=== PATIENT | female | born 1940 | race Caucasian/White ===

== ENCOUNTER → 2016-09-18 | Outpatient (CLI) | payer OTHER ==
[~2016-09-18] MED LIST: ATEN50TA8 PO; CYM/30 PO; DICL-201 PO; INSDGI SC; LYR25 PO; NVLGI SC; TRAM-10 PO
--- NOTE | 2016-09-18 16:38 | DIAGNOSTIC IMAGING REPORT ---
RIGHT ELBOW MIN 3 VIEWS ROUTINE CLINICAL HISTORY: Diffuse pain. Trauma. COMPARISON: None. DISCUSSION: No acute fractures are visualized. There are arthritic changes present with early process spurring. There is irregularity of the medial and lateral epicondyles. This is felt to be a chronic stress-related basis. IMPRESSION: Chronic changes. No acute fractures or dislocations. Electronically signed by: Jaime Chacko M.D. 09/18/2016 4:37 PM Dictated Date/Time: 09/18/2016 4:36 PM
--- NOTE | 2016-09-18 16:40 | DIAGNOSTIC IMAGING REPORT ---
RIGHT SHOULDER MIN 2 VIEWS ROUTINE CLINICAL HISTORY: Right shoulder pain status post trauma COMPARISON: None. DISCUSSION: No acute fractures or dislocations are visualized. There are osteoarthritic changes present. There is narrowing of the humeral acromial distance consistent with chronic rotator cuff tear. IMPRESSION: 1. No acute fractures or dislocations 2. Degenerative changes with radiographic evidence of a chronic rotator cuff tear Electronically signed by: Jaime Chacko M.D. 09/18/2016 4:38 PM Dictated Date/Time: 09/18/2016 4:38 PM
== END | disposition home or self-care (01) ==
LOC: C.RAD1850 16:18
PROVIDERS: ATTEND Nurse Practitioner Family
DX: M79.601 Pain in right arm (principal); M75.101 Unspecified rotator cuff tear or rupture of right shoulder, not specified as traumatic

== ENCOUNTER → 2016-11-02 | Outpatient (CLI) | payer OTHER ==
[2016-11-02 11:45] LABS: ESTIMATED AVERAGE GLUCOSE 177 mg/dl; HA1C FLAG Normal (Normal)
[2016-11-02 12:24] LABS: BLOOD UREA NITROGEN 22 mg/dl (7-18); BUN/CREATININE RATIO 28.2 (10-20); CALCIUM 8.7 mg/dl (8.5-10.1); CARBON DIOXIDE 27 mmol/L (21-32); CHLORIDE 106 mmol/L (98-107); CREATININE 0.78 mg/dl (0.60-1.20); GLUCOSE 141 mg/dl (70-99); POTASSIUM 4.1 mmol/L (3.5-5.1); SODIUM 141 mmol/L (136-145)
== END | disposition home or self-care (01) ==
LOC: C.LAB 10:08
PROVIDERS: ATTEND Nurse Practitioner Family
DX: E11.9 Type 2 diabetes mellitus without complications (principal)

== ENCOUNTER → 2017-02-22 | Outpatient (CLI) | payer OTHER ==
[2017-02-22 10:00] LABS: BASO % 0.4 %; BASO ABS # 0.03 K/uL (0-0.2); COMPLETE YES; EOS % 2.2 %; HEMATOCRIT 37.9 % (37-47); IG% 0.6 %; LYMPH % 37.7 %; LYMPH ABS # 2.58 K/uL (1.2-3.4); MEAN CELL VOLUME 90.2 fL (80-100); MEAN CORPUSCULAR HEMOGLOBIN 29.5 pg (25-34); MEAN CORPUSCULAR HGB CONC 32.7 g/dl (32-36); MEAN PLATELET VOLUME 10.6 fL (7.4-10.4); MONO % 10.5 %; NEUT % 48.6 %; PLATELET COUNT 287 K/uL (130-400); WHITE BLOOD COUNT 6.84 K/uL (4.8-10.8)
[2017-02-22 10:27] LABS: ALT/SGPT 33 U/L (12-78); BLOOD UREA NITROGEN 26 mg/dl (7-18); BUN/CREATININE RATIO 23.5 (10-20); CALCIUM 9.5 mg/dl (8.5-10.1); CARBON DIOXIDE 26 mmol/L (21-32); CHLORIDE 106 mmol/L (98-107); CHOLESTEROL 235 mg/dl (0-200); GLUCOSE 157 mg/dl (70-99); POTASSIUM 4.3 mmol/L (3.5-5.1); SODIUM 139 mmol/L (136-145)
[2017-02-22 10:30] LABS: ALKALINE PHOSPHATASE 55 U/L (45-117); AST/SGOT 22 U/L (15-37); CHOLESTEROL/HDL RATIO 5.5; HDL CHOLESTEROL 43 mg/dl; LDL CHOLESTEROL CALCULATED 150 mg/dl; TRIGLYCERIDES 211 mg/dl (0-150); VERY LOW DENSITY LIPOPROT CALC 42 mg/dl
[2017-02-22 10:48] LABS: ESTIMATED AVERAGE GLUCOSE 186 mg/dl; HA1C FLAG Normal (Normal)
== END | disposition home or self-care (01) ==
LOC: C.LAB 09:19
PROVIDERS: ATTEND Nurse Practitioner Family
DX: E11.42 Type 2 diabetes mellitus with diabetic polyneuropathy (principal); E11.21 Type 2 diabetes mellitus with diabetic nephropathy; E55.9 Vitamin D deficiency, unspecified; F41.9 Anxiety disorder, unspecified; E78.00 Pure hypercholesterolemia, unspecified; I10 Essential (primary) hypertension; M25.511 Pain in right shoulder

== ENCOUNTER → 2017-06-04 | Outpatient (CLI) | payer OTHER ==
[2017-06-04 10:16] LABS: BLOOD UREA NITROGEN 21 mg/dl (7-18); BUN/CREATININE RATIO 25.5 (10-20); CALCIUM 9.1 mg/dl (8.5-10.1); CARBON DIOXIDE 26 mmol/L (21-32); CHLORIDE 104 mmol/L (98-107); CREATININE 0.84 mg/dl (0.60-1.20); GLUCOSE 144 mg/dl (70-99); POTASSIUM 4.2 mmol/L (3.5-5.1); SODIUM 137 mmol/L (136-145)
[2017-06-04 11:25] LABS: ESTIMATED AVERAGE GLUCOSE 157 mg/dl; HA1C FLAG Normal (Normal)
== END | disposition home or self-care (01) ==
LOC: C.LAB 09:26
PROVIDERS: ATTEND Nurse Practitioner Family
DX: F41.9 Anxiety disorder, unspecified (principal); F32.9 Major depressive disorder, single episode, unspecified; E11.65 Type 2 diabetes mellitus with hyperglycemia

== ENCOUNTER → 2017-12-04 | Outpatient (CLI) | payer OTHER ==
[2017-12-04 12:12] LABS: BASO % 0.9 %; BASO ABS # 0.06 K/uL (0-0.2); EOS % 2.5 %; EOS ABS # 0.17 K/uL (0-0.5); HEMATOCRIT 38.1 % (37-47); HEMOGLOBIN 12.6 g/dL (12.0-16.0); IG# 0.03 K/uL (0.00-0.02); LYMPH % 34.3 %; LYMPH ABS # 2.35 K/uL (1.2-3.4); MEAN CELL VOLUME 92.3 fL (80-100); MEAN CORPUSCULAR HEMOGLOBIN 30.5 pg (25-34); MEAN CORPUSCULAR HGB CONC 33.1 g/dl (32-36); MEAN PLATELET VOLUME 10.5 fL (7.4-10.4); MONO % 11.5 %; MONO ABS # 0.79 K/uL (0.11-0.59); NEUT % 50.4 %; NEUT ABS # 3.45 K/uL (1.4-6.5); PLATELET COUNT 311 K/uL (130-400); RED CELL DISTRIBUTION WIDTH CV 13.2 % (11.5-14.5); RED CELL DISTRIBUTION WIDTH SD 44.3 fL (36.4-46.3); WHITE BLOOD COUNT 6.85 K/uL (4.8-10.8)
[2017-12-04 12:40] LABS: HEMOGLOBIN A1C 8.1 % (4.5-5.6)
[2017-12-04 13:10] LABS: BLOOD UREA NITROGEN 19 mg/dl (7-18); CALCIUM 9.3 mg/dl (8.5-10.1); CARBON DIOXIDE 27 mmol/L (21-32); CHOLESTEROL 235 mg/dl (0-200); CREATININE 0.86 mg/dl (0.60-1.20); GLUCOSE 191 mg/dl (70-99); SODIUM 138 mmol/L (136-145)
[2017-12-04 13:14] LABS: LDL CHOLESTEROL CALCULATED 154 mg/dl
== END | disposition home or self-care (01) ==
LOC: C.LAB 10:17
PROVIDERS: ATTEND Nurse Practitioner Family
DX: E11.65 Type 2 diabetes mellitus with hyperglycemia (principal); I10 Essential (primary) hypertension; E78.00 Pure hypercholesterolemia, unspecified

== ENCOUNTER 2021-07-28 17:46 | Inpatient (IN) ==
--- NOTE | 2021-07-28 18:10 | Emergency Department Note ---
Impression & Plan Leukocytosis, Acute UTI, Fatigue, Acute electrocardiogram changes, Chest heaviness, Hyperglycemia ED Provider Note NAME: MAGNUS SANCHEZ AGE: 81 SEX: F : 1940 ARRIVES VIA: Walk-In INFORMANT: Patient, ED PROVIDER(S): Earl Arzate MD Chief Complaint: Weakness, fatigue, chest heaviness HPI: Patient presents with the above symptoms stating that her symptoms began on Sunday and thought that she had a UTI was treated with Macrobid and was subsequently switched to ciprofloxacin today. The patient had a similar episode back in October where the patient had positive cardiac enzymes and bacteremia secondary to Pseudomonas infection likely from UTI. Patient denies any current fevers or chills. The patient did complain of some chest heaviness but has no cough. Patient is vaccinated for COVID-19, influenza as well as pneumococcal. Patient denies any lower extremity swelling. Patient denies any nausea or diaphoresis with her chest heaviness. Patient states it feels dissimilar from when she had elevated cardiac enzymes back in October. No history of DVT or PE. No recent travel or known sick contacts. Patient [place] any falls or trauma. Patient does have chronic pain which she thinks also may be contributory to her chest heaviness. Patient has not taken anything at home other than her antibiotics. Patient states that her symptoms have been fairly constant since Sunday. Patient did have the cardiac enzymes worked up by Dr. Multani in the past with a stress test that they report did not require intervention. ROS: See HPI for pertinent positives and negatives. A total of 10 systems were reviewed and otherwise negative. Past medical history: See below Surgical history: See below Social history: See below Physical Exam: GENERAL: NAD, wearing a mask, non-toxic. EYE EXAM: Normal conjunctiva. PERRL, no anisocoria and EOM's grossly intact w/o pain. NECK: Supple, no nuchal rigidity, no adenopathy, non-tender. No signs of meningismus. LUNGS: Clear to auscultation. Normal chest wall mechanics. HEART: NSR, no MRG. ABDOMEN: Abdomen soft, non-tender, normo-active bowel sounds, no masses, no rebound or guarding. BACK: No CVA TTP. SKIN: No rashes and no bruising. UPPER EXTREMITIES: Upper extremities are grossly normal. LOWER EXTREMITIES: Grossly normal, no edema. NEURO EXAM: A&O x3, cranial nerves II-XII grossly intact, normal speech, moves all 4 extremities on command w/o issue. Differential diagnoses: Infection, dehydration, metabolic abnormality, hypo/hyperglycemia, electrolyte disturbance, anemia, hypoxia, cardiac sources, intracerebral event, toxicologic, neurologic, as well as other pathologies. Course: Patient was seen and evaluated the bedside. Full history physical exam was performed. EKG interpreted by me Sinus with first-degree AV block, rate 92, prolonged TN, normal QRS, normal axis, slight depression in the anterior and lateral leads. Lateral depressions appear to be old but anteriorly may appear worse compared to prior completed on October 20, 2020. Imaging Studies: See Below Cardiac monitoring: An order was placed for continuous cardiac monitoring. The monitor shows a rate of 82 with sinus rhythm. MDM: Patient was seen due to concern for fatigue and chest heaviness. The patient's EKG does show some slight changes anteriorly. Troponin had been ordered. Patient does have a white count of 20. I did order cefepime empirically given the patient's recently confirmed Pseudomonas UTI. The patient did receive cephalosporins in the past even though the patient has a penicillin allergy. The patient most recently received them during her October inpatient stay. Patient has normal kidney function. Patient does have an elevated blood sugar at 280. Troponin is not detectable. Urinalysis does show blood and RBCs but no obvious signs of infection. I did speak with the on-call hospitalist and the patient was admitted by Dr. German. Covid negative. Chest x-ray shows cardiomegaly. Patient has no abdominal pain or flank pain. I discussed with the patient that if she develops worsening chest discomfort to notify nursing so we can repeat an EKG. Patient understood. Past Med/Surg History Medical History Anxiety disorder Cardiovascular arteriosclerosis Depression Diabetes mellitus with diabetic nephropathy Diabetes type 2, uncontrolled Diabetic peripheral neuropathy Fibromyalgia Gastro-esophageal reflux Hypercholesterolemia Irritable bowel syndrome Obesity Vitamin D deficiency Surgical History History of back surgery S/P cataract surgery S/P knee surgery Family History Father Prostate cancer Mother Hypertension Depression Diabetes Unknown Cancer Denies family history of Ovarian cancer Myocardial infarction Breast cancer Colorectal cancer Social History Smoking Status: Former smoker Tobacco Type: Cigarettes Age Started Using Tobacco: 19; Age Quit Using Tobacco: 62; Cigarettes Per Day: 1-2 a day if that; Second Hand Exposure: Yes; Hx Alcohol Use: No Hx Substance Use: No Preferred Language: Slovenian Communication Ability: Effective Visual Impairment: No Limitations Hearing Ability: Normal Material Requisitioner Required: No Beliefs That Will Affect Care: None marital status: Current Living Situation: Spouse current occupational status: retired Feels Safe at Home: Yes Childhood Exposure to Second-Hand Smoke: Yes Diet Comment: keto Dental Care, Regularly: Yes Physical Activity Frequency: Does not Exercise Seatbelt Use: sometimes Sunscreen Use: Yes Assistive Devices: Cane and Denture - Lower Allergies Allergies Allergy/AdvReac Type Severity Reaction Status Date / Time amoxicillin Allergy Severe Shortness Verified 07/28/21 19:31 of breath Penicillins Allergy Severe Shortness Verified 07/28/21 19:31 of breath shellfish derived Allergy Severe syncope Verified 07/28/21 19:31 sulfamethoxazole Allergy Severe Anaphylaxis Verified 07/28/21 19:31 [From Bactrim] trimethoprim [From Bactrim] Allergy Severe Anaphylaxis Verified 07/28/21 19:31 Viunzdk-HBQ-IeC Reductase Allergy Intermediate Body Pain Verified 07/28/21 19:31 Inhibitor [Iplpjlr-Han-Axu Reductase Inhibitor] codeine Allergy Unknown SOB,CHANGE Verified 07/28/21 19:31 MENTAL STATUS - TAKES VICODIN AT HOME morphine Allergy Unknown FAMILY Verified 07/28/21 19:31 REACTION /FATHER AND DAUGHTER metformin [From Glucophage] AdvReac Intermediate Diarrhea Verified 07/28/21 19:31 Home Meds Home Medications Medication Instructions Recorded Confirmed omega-3 fatty acids 1,000 mg 1,000 mg PO DAILY 11/22/20 07/28/21 capsule (Fish Oil Concentrate) cholecalciferol (vitamin D3) 125 125 mcg PO DAILY 07/28/21 07/28/21 mcg (5,000 unit) tablet (Vitamin D3) ciprofloxacin HCl 250 mg tablet 250 mg PO Q12 07/28/21 07/28/21 insulin aspart U-100 100 unit/mL 1 sliding scale dose SUBCUT UD 07/28/21 07/28/21 (3 mL) subcutaneous pen (Novolog Flexpen U-100 Insulin aspart) insulin glargine 100 unit/mL 22 unit SQ BID 07/28/21 07/28/21 subcutaneous solution (Lantus U-100 Insulin) omeprazole 20 mg capsule,delayed 20 mg PO DAILYBB 07/28/21 07/28/21 release tramadol 50 mg tablet 50 mg PO Q12 PRN 07/28/21 07/28/21 Previous Rx's Medication Instructions Recorded clonazepam 0.5 mg tablet 0.5 mg PO BID PRN #60 tab 07/22/20 blood sugar diagnostic (dINKTouch #400 ea 09/15/20 Verio test strips) blood-glucose meter (dINKTouch #1 ea 09/15/20 Verio Meter) lancets 33 gauge (OneTouch Delica #400 ea 09/20/20 Lancets) desvenlafaxine succinate 50 mg 50 mg PO QPM #90 tab 01/25/21 tablet,extended release 24 hr insulin syringe-needle U-100 0.3 #400 ea 02/10/21 mL 30 gauge x 1/2" (UltiCare) metoprolol succinate 50 mg 50 mg PO HS #90 tab 02/21/21 tablet,extended release 24 hr Results & Data (ED) Vital Signs Vital Signs - 24 hr 07/28/21 17:50 Temperature 37.2 C Temperature Source Temporal Artery Scan Pulse Rate 89 Respiratory Rate 18 Blood Pressure 193/79 H Blood Pressure Mean 117 Pulse Oximetry 96 Oxygen Delivery Method Room Air Sepsis Recent Fever Within 48 Hours No Sepsis New/Unexplained Change in Mental Status No Sepsis Action Taken by Nursing No Action Required Home Medications Current Medication List: was personally reviewed by me Laboratory Data Attestation: I reviewed the patient's lab results. Result diagrams: 07/28/21 18:15 07/28/21 18:15 Lab Results 07/28/21 07/28/21 07/28/21 Range/Units 18:15 18:15 18:15 WBC 20.72 H (4.8-10.8) K/uL RBC 4.39 (4.2-5.4) M/uL Hgb 13.4 (12.0-16.0) g/dL Hct 40.6 (37-47) % MCV 92.5 (80-100) fL MCH 30.5 (25-34) pg MCHC 33.0 (32-36) g/dL RDW Std Deviation 46.5 H (36.4-46.3) fL RDW Coeff of Adair 13.7 (11.5-14.5) % Plt Count 261 (130-400) K/uL MPV 10.3 (7.4-10.4) fL Immature Gran % (Auto) 0.2 % Neut % (Auto) 82.7 % Lymph % (Auto) 9.6 % Yell % (Auto) 6.2 % Eos % (Auto) 1.2 % Baso % (Auto) 0.1 % Neut # (Auto) 17.14 H (1.4-6.5) K/uL Lymph # (Auto) 1.98 (1.2-3.4) K/uL Yell # (Auto) 1.29 H (0.11-0.59) K/uL Eos # (Auto) 0.24 (0-0.5) K/uL Baso # (Auto) 0.03 (0-0.2) K/uL Immature Gran # (Auto) 0.04 H (0.00-0.02) K/uL APTT (21.0-31.0) Seconds PTT Ratio Sodium 139 (136-145) mmol/L Potassium 4.2 (3.5-5.1) mmol/L Chloride 107 (98-107) mmol/L Carbon Dioxide 26 (21-32) mmol/L Anion Gap 6.0 (3-11) BUN 15 (7-18) mg/dl Creatinine 0.94 (0.6-1.2) mg/dl Est Cr Clr Drug Dosing Not Reportable Est GFR ( Amer) 66.9 ml/min Est GFR (Non-Af Amer) 57.7 ml/min BUN/Creatinine Ratio 15.7 (10-20) Glucose 280 H (70-99) mg/dl Calcium 9.2 (8.5-10.1) mg/dl Magnesium 1.8 Cancelled (1.8-2.4) mg/dl Total Bilirubin 0.6 (0.2-1) mg/dl AST 23 (15-37) U/L ALT 29 (12-78) Alkaline Phosphatase 65 (45-117) U/L Troponin I < 0.015 (0-0.045) ng/ml Total Protein 7.4 (6.4-8.2) gm/dl Albumin 3.4 (3.4-5.0) gm/dl Globulin 4.0 (2.5-4.0) gm/dl Albumin/Globulin Ratio 0.8 L (0.9-2) TSH 1.400 Cancelled (0.300-4.500) uIu/ml Urine Color Urine Appearance (Clear) Urine pH (4.5-7.5) Ur Specific [place] (1.000-1.030) Urine Protein (Negative) Urine Glucose (UA) (Negative) Urine Ketones (Negative) Urine Blood (Negative) Urine Nitrite (Negative) Urine Bilirubin (Negative) Urine Urobilinogen (Negative) Ur Leukocyte Esterase (Negative) Urine WBC (Auto) (0-5) /hpf Urine RBC (Auto) (0-4) /hpf U Hyaline Cast (Auto) (0-5) /lpf U Epithel Cells (Auto) (0-5) /lpf Urine Bacteria (Auto) (Negative) SARS-CoV-2, RNA, NAAT (NEGATIVE) 07/28/21 07/28/21 07/28/21 Range/Units 19:10 19:10 20:06 WBC (4.8-10.8) K/uL RBC (4.2-5.4) M/uL Hgb (12.0-16.0) g/dL Hct (37-47) % MCV (80-100) fL MCH (25-34) pg MCHC (32-36) g/dL RDW Std Deviation (36.4-46.3) fL RDW Coeff of Adair (11.5-14.5) % Plt Count (130-400) K/uL MPV (7.4-10.4) fL Immature Gran % (Auto) % Neut % (Auto) % Lymph % (Auto) % Yell % (Auto) % Eos % (Auto) % Baso % (Auto) % Neut # (Auto) (1.4-6.5) K/uL Lymph # (Auto) (1.2-3.4) K/uL Yell # (Auto) (0.11-0.59) K/uL Eos # (Auto) (0-0.5) K/uL Baso # (Auto) (0-0.2) K/uL Immature Gran # (Auto) (0.00-0.02) K/uL APTT (21.0-31.0) Seconds PTT Ratio Sodium (136-145) mmol/L Potassium (3.5-5.1) mmol/L Chloride (98-107) mmol/L Carbon Dioxide (21-32) mmol/L Anion Gap (3-11) BUN (7-18) mg/dl Creatinine (0.6-1.2) mg/dl Est Cr Clr Drug Dosing Est GFR ( Amer) ml/min Est GFR (Non-Af Amer) ml/min BUN/Creatinine Ratio (10-20) Glucose (70-99) mg/dl Calcium (8.5-10.1) mg/dl Magnesium (1.8-2.4) mg/dl Total Bilirubin (0.2-1) mg/dl AST (15-37) U/L ALT (12-78) Alkaline Phosphatase (45-117) U/L Troponin I < 0.015 (0-0.045) ng/ml Total Protein (6.4-8.2) gm/dl Albumin (3.4-5.0) gm/dl Globulin (2.5-4.0) gm/dl Albumin/Globulin Ratio (0.9-2) TSH (0.300-4.500) uIu/ml Urine Color Yellow Urine Appearance Clear (Clear) Urine pH 7.0 (4.5-7.5) Ur Specific [place] 1.013 (1.000-1.030) Urine Protein Negative (Negative) Urine Glucose (UA) 2+ H (Negative) Urine Ketones Negative (Negative) Urine Blood 2+ H (Negative) Urine Nitrite Negative (Negative) Urine Bilirubin Negative (Negative) Urine Urobilinogen Negative (Negative) Ur Leukocyte Esterase Negative (Negative) Urine WBC (Auto) 1-5 (0-5) /hpf Urine RBC (Auto) 5-10 H (0-4) /hpf U Hyaline Cast (Auto) 0 (0-5) /lpf U Epithel Cells (Auto) 0-5 (0-5) /lpf Urine Bacteria (Auto) Negative (Negative) SARS-CoV-2, RNA, NAAT NEGATIVE (NEGATIVE) 07/28/21 Range/Units 20:06 WBC (4.8-10.8) K/uL RBC (4.2-5.4) M/uL Hgb (12.0-16.0) g/dL Hct (37-47) % MCV (80-100) fL MCH (25-34) pg MCHC (32-36) g/dL RDW Std Deviation (36.4-46.3) fL RDW Coeff of Adair (11.5-14.5) % Plt Count (130-400) K/uL MPV (7.4-10.4) fL Immature Gran % (Auto) % Neut % (Auto) % Lymph % (Auto) % Yell % (Auto) % Eos % (Auto) % Baso % (Auto) % Neut # (Auto) (1.4-6.5) K/uL Lymph # (Auto) (1.2-3.4) K/uL Yell # (Auto) (0.11-0.59) K/uL Eos # (Auto) (0-0.5) K/uL Baso # (Auto) (0-0.2) K/uL Immature Gran # (Auto) (0.00-0.02) K/uL APTT 27.7 (21.0-31.0) Seconds PTT Ratio 1.1 Sodium (136-145) mmol/L Potassium (3.5-5.1) mmol/L Chloride (98-107) mmol/L Carbon Dioxide (21-32) mmol/L Anion Gap (3-11) BUN (7-18) mg/dl Creatinine (0.6-1.2) mg/dl Est Cr Clr Drug Dosing Est GFR ( Amer) ml/min Est GFR (Non-Af Amer) ml/min BUN/Creatinine Ratio (10-20) Glucose (70-99) mg/dl Calcium (8.5-10.1) mg/dl Magnesium (1.8-2.4) mg/dl Total Bilirubin (0.2-1) mg/dl AST (15-37) U/L ALT (12-78) Alkaline Phosphatase (45-117) U/L Troponin I (0-0.045) ng/ml Total Protein (6.4-8.2) gm/dl Albumin (3.4-5.0) gm/dl Globulin (2.5-4.0) gm/dl Albumin/Globulin Ratio (0.9-2) TSH (0.300-4.500) uIu/ml Urine Color Urine Appearance (Clear) Urine pH (4.5-7.5) Ur Specific [place] (1.000-1.030) Urine Protein (Negative) Urine Glucose (UA) (Negative) Urine Ketones (Negative) Urine Blood (Negative) Urine Nitrite (Negative) Urine Bilirubin (Negative) Urine Urobilinogen (Negative) Ur Leukocyte Esterase (Negative) Urine WBC (Auto) (0-5) /hpf Urine RBC (Auto) (0-4) /hpf U Hyaline Cast (Auto) (0-5) /lpf U Epithel Cells (Auto) (0-5) /lpf Urine Bacteria (Auto) (Negative) SARS-CoV-2, RNA, NAAT (NEGATIVE) Administered Medications Discontinued Medications Acetaminophen (Acetaminophen 500 Mg Tab) 1,000 mg PO NOW STA Stop: 07/28/21 18:22 Last Admin: 07/28/21 18:53 Dose: 1,000 mg Documented by: [id number] Aspirin (Aspirin 81 Mg Ectab) 81 mg PO ONE STA Stop: 07/28/21 21:18 Last Admin: 07/28/21 21:38 Dose: 81 mg Documented by: [id number] Sodium Chloride (Nss) 500 mls @ 999 mls/hr IV .Q31M TIFFANY Stop: 07/28/21 19:00 Last Infusion: 07/28/21 21:44 Dose: 0 mls/hr Documented by: [id number] Admin: 07/28/21 19:52 Dose: 999 mls/hr Documented by: [id number] Cefepime HCl (Maxipime) 2,000 mg in 20 mls @ 5 mls/min IV NOW STA; Protocol Stop: 07/28/21 18:50 Last Admin: 07/28/21 20:02 Dose: 5 mls/min Documented by: [id number] Insulin Glargine (Insulin Glargine Solostar 100 Units/Ml 3 Ml Pen) 15 units SC NOW STA Stop: 07/28/21 20:17 Last Admin: 07/28/21 21:41 Dose: 15 units Documented by: [id number] Cosigned by: [id number] Metoprolol Succinate (Metoprolol Succ 50mg Ext Rel Tab) 50 mg PO ONE ONE Stop: 07/28/21 20:31 Last Admin: 07/28/21 21:38 Dose: 50 mg Documented by: [id number] Ondansetron HCl (Ondansetron Inj 2 Mg/Ml 2 Ml Vial) 4 mg IV NOW STA Stop: 07/28/21 18:22 Last Admin: 07/28/21 18:53 Dose: 4 mg Documented by: [id number] Tramadol HCl (Tramadol Hcl 50 Mg Tablet) 50 mg PO NOW STA Stop: 07/28/21 18:22 Last Admin: 07/28/21 18:52 Dose: 50 mg Documented by: [id number] Imaging Data Radiologist's Impression: Chest X-Ray 07/28/21 18:22 XR chest 1V portable HISTORY: 81 years-old Female weakness acute weakness. COMPARISON: Chest radiograph 10/20/2020 TECHNIQUE: Portable AP view of the chest FINDINGS: The cardiac silhouette is upper limits of normal in size. Unchanged coarsening of the interstitium. No pneumothorax, large pleural effusion or overt pulmonary edema. Degenerative changes of the shoulders and spine. IMPRESSION: Cardiomegaly with unchanged interstitial coarsening. ACT 112: Negative or not required by law. The above report was generated using voice recognition software. It may contain grammatical, syntax or spelling errors. Electronically signed by: Mitchell Talley M.D. 07/28/2021 6:59 PM Discharge Plan Visit Data Chief Complaint: Illness Stated Complaint: UTI symptoms getting worse ED Provider: Earl Arzate Discharge Problem: Leukocytosis, Acute UTI, Fatigue, Acute electrocardiogram changes, Chest heaviness, Hyperglycemia Discharge Instructions Interventions: ED Discharge Assessment Last Done: 07/28/21 21:31
[2021-07-28] MEDS ORDERED: ONDANSETRON INJ 2 MG/ML 2 ML VIAL IV STA (18:21)
[2021-07-28] MEDS ORDERED: ACETAMINOPHEN 500 MG TAB PO STA (18:21)
[2021-07-28] MEDS ORDERED: traMADol HCL 50 MG TABLET PO STA (18:21)
[2021-07-28 18:23] LABS: Basophils # (auto) 0.03 K/uL (0-0.2); Basophils % (auto) 0.1 %; Eosinophils # (auto) 0.24 K/uL (0-0.5); Eosinophils % (auto) 1.2 %; Hematocrit (blood only) 40.6 % (37-47); Hemoglobin 13.4 g/dL (12.0-16.0); Immature Granulocytes # (auto) 0.04 K/uL (0.00-0.02); Immature Granulocytes % (auto) 0.2 %; Lymphocytes # (auto) 1.98 K/uL (1.2-3.4); Lymphocytes % (auto) 9.6 %; Mean Corpuscular Hemoglobin 30.5 pg (25-34); Mean Corpuscular Volume 92.5 fL (80-100); Mean Platelet Volume 10.3 fL (7.4-10.4); Monocytes # (auto) 1.29 K/uL (0.11-0.59); Monocytes % (auto) 6.2 %; Neutrophils # (auto) 17.14 K/uL (1.4-6.5); Neutrophils % (auto) 82.7 %; Platelet Count 261 K/uL (130-400); RDW Coefficient of Variation 13.7 % (11.5-14.5); RDW Standard Deviation 46.5 fL (36.4-46.3); Red Blood Count 4.39 M/uL (4.2-5.4); White Blood Count 20.72 K/uL (4.8-10.8)
[2021-07-28] MEDS ORDERED: SODIUM CHLORIDE 0.9% 500 ML IV SCH (18:30)
[2021-07-28 18:43] LABS: Alanine Aminotransferase 29 (12-78); Albumin Level 3.4 gm/dl (3.4-5.0); Aspartate Aminotransferase 23 U/L (15-37); BUN Creatinine Ratio 15.7 (10-20); Blood Urea Nitrogen 15 mg/dl (7-18); Calcium 9.2 mg/dl (8.5-10.1); Carbon Dioxide 26 mmol/L (21-32); Chloride 107 mmol/L (98-107); Est GFR (African American) 66.9 ml/min; Est GFR (Non-African American) 57.7 ml/min; Glucose 280 mg/dl (70-99); Potassium 4.2 mmol/L (3.5-5.1); Sodium 139 mmol/L (136-145)
[2021-07-28 18:46] LABS: Albumin Globulin Ratio 0.8 (0.9-2); Alkaline Phosphatase 65 U/L (45-117); Bilirubin,Total 0.6 mg/dl (0.2-1); Total Protein 7.4 gm/dl (6.4-8.2)
[2021-07-28] MEDS ORDERED: CEFEPIME 2,000 MG/20 ML VIAL IV STA (18:47)
[2021-07-28 18:59] LABS: Troponin I < 0.015 ng/ml (0-0.045)
--- NOTE | 2021-07-28 19:00 | XRay Report ---
XR chest 1V portable HISTORY: 81 years-old Female weakness acute weakness. COMPARISON: Chest radiograph 10/20/2020 TECHNIQUE: Portable AP view of the chest FINDINGS: The cardiac silhouette is upper limits of normal in size. Unchanged coarsening of the interstitium. N o pneumothorax, large pleural effusion or overt pulmonary edema. Degenerative changes of the shoulder s and spine. IMPRESSION: Cardiomegaly with unchanged interstitial coarsening. ACT 112: Negative or not required by law. The above report was generated using voice recognition software. It may contain grammatical, syntax o r spelling errors. Electronically signed by: Mitchell Talley M.D. 07/28/2021 6:59 PM
[2021-07-28 19:29] LABS: Magnesium 1.8 mg/dl (1.8-2.4)
[2021-07-28 19:38] LABS: Appearance Urine Clear (Clear); Bacteria Urine Automated Negative (Negative); Bilirubin Urine Negative (Negative); Blood Urine 2+ (Negative); Cast Urine Automated 0 /lpf (0-5); Color Urine Yellow; Epithelial Cell Urine Auto 0-5 /lpf (0-5); Glucose Urine UA 2+ (Negative); Ketones Urine Negative (Negative); Leukocyte Esterase Urine Negative (Negative); Nitrite Urine Negative (Negative); Protein Urine Negative (Negative); Specific Gravity Urine 1.013 (1.000-1.030); Urobilinogen Urine Negative (Negative)
--- NOTE | 2021-07-28 20:02 | History & Physical Report ---
Date of Service July 28, 2021 Assessment & Plan (1) Chest pain: Plan: Somewhat atypical Possibly from elevated BP upon arrival at the ER Rule out ACS, history CAD as per records Complicated UTI, partially treated Enterococcus on initial outpatient urine CS hx recurrent UTIs Patient predisposed by pelvic prolapse as per outpatient Urology notes. No overt sepsis for now. hypertension, elevated upon arrival at the ER hyperlipidemia, on statin Rx DM2 insulin requiring, reasonable control as of recent hemoglobin A1c of 7.16 July 2021 past tobacco abuse PCU given chest pain complaints, history CAD Follow troponin Facilitate nighttime BP meds, add lisinopril to her regimen if still uncontrolled Cardiology consult Re: Chest pain as per patient/family request (Patient known to [facility].) Daptomycin for now for Enterococcus UTI on outpatient urine CS, follow final report PT OT eval Basal insulin, ISS BG goal 1 10-1 40, carb count coverage DVT prophylaxis. Lovenox subcu Full code Patient daughter requesting updates from providers. Ms. Britt Ryder, contact #[phone]. Text document was generated using [employer] voice recognition software. It may contain grammatical or spelling errors. Kindly contact undersigned for clarification of any documentation item in question. History of Present Illness Chief Complaint: Weakness, fatigue, UTI, chest heaviness Primary Care Provider: Anand Mena, DO History obtained from patient, family, and records. Medical history significant for CAD as per records, hypertension, hyperlipidemia, DM2 insulin requiring, fibromyalgia, recurrent UTIs /pelvic floor prolapse, past tobacco abuse. Last confinement October 2020 for chest pain, elevated troponin. No inducible ischemia on outpatient dobutamine stress echo. Patient not feeling well the last few days. Increased urinary frequency, cloudy urine with some blood, weakness, fatigue, transient headache symptoms which patient gets when she has a urine infection as per patient. No fever. Some chills at home. Fair appetite. Patient initially prescribed Macrobid by PCP with abnormal outpatient UA. Ciprofloxacin later added by PCP due to history of Pseudomonas UTIs. Today, patient noted transient chest heaviness at home which patient attributes to fibromyalgia aches. No S OB, no diaphoresis. Patient given cefepime upon arrival at the ER. 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 Allergies Allergy/AdvReac Type Severity Reaction Status Date / Time amoxicillin Allergy Severe Shortness Verified 07/28/21 19:31 of breath Penicillins Allergy Severe Shortness Verified 07/28/21 19:31 of breath shellfish derived Allergy Severe syncope Verified 07/28/21 19:31 sulfamethoxazole Allergy Severe Anaphylaxis Verified 07/28/21 19:31 [From Bactrim] trimethoprim [From Bactrim] Allergy Severe Anaphylaxis Verified 07/28/21 19:31 Ttiqjew-RVK-DqW Reductase Allergy Intermediate Body Pain Verified 07/28/21 19:31 Inhibitor [Lksxrjg-Tjl-Zrr Reductase Inhibitor] codeine Allergy Unknown SOB,CHANGE Verified 07/28/21 19:31 MENTAL STATUS - TAKES VICODIN AT HOME morphine Allergy Unknown FAMILY Verified 07/28/21 19:31 REACTION /FATHER AND DAUGHTER metformin [From Glucophage] AdvReac Intermediate Diarrhea Verified 07/28/21 19:31 Home Medications Medication Instructions Recorded Confirmed Type clonazepam 0.5 mg tablet 0.5 mg PO BID PRN #60 tab 07/22/20 07/28/21 Rx blood sugar diagnostic (OneTouch #400 ea 09/15/20 06/30/21 Rx Verio test strips) blood-glucose meter (OneTouch #1 ea 09/15/20 06/30/21 Rx Verio Meter) lancets 33 gauge (OneTouch Delica #400 ea 09/20/20 06/30/21 Rx Lancets) omega-3 fatty acids 1,000 mg 1,000 mg PO DAILY 11/22/20 07/28/21 History capsule (Fish Oil Concentrate) desvenlafaxine succinate 50 mg 50 mg PO QPM #90 tab 01/25/21 07/28/21 Rx tablet,extended release 24 hr insulin syringe-needle U-100 0.3 #400 ea 02/10/21 06/30/21 Rx mL 30 gauge x 1/2" (UltiCare) metoprolol succinate 50 mg 50 mg PO HS #90 tab 02/21/21 07/28/21 Rx tablet,extended release 24 hr cholecalciferol (vitamin D3) 125 125 mcg PO DAILY 07/28/21 07/28/21 History mcg (5,000 unit) tablet (Vitamin D3) ciprofloxacin HCl 250 mg tablet 250 mg PO Q12 07/28/21 07/28/21 History insulin aspart U-100 100 unit/mL 1 sliding scale dose SUBCUT UD 07/28/21 07/28/21 History (3 mL) subcutaneous pen (Novolog Flexpen U-100 Insulin aspart) insulin glargine 100 unit/mL 22 unit SQ BID 07/28/21 07/28/21 History subcutaneous solution (Lantus U-100 Insulin) omeprazole 20 mg capsule,delayed 20 mg PO DAILYBB 07/28/21 07/28/21 History release tramadol 50 mg tablet 50 mg PO Q12 PRN 07/28/21 07/28/21 History Past Med/Surg History Medical History Anxiety disorder Cardiovascular arteriosclerosis Depression Diabetes mellitus with diabetic nephropathy Diabetes type 2, uncontrolled Diabetic peripheral neuropathy Fibromyalgia Gastro-esophageal reflux Hypercholesterolemia Irritable bowel syndrome Obesity Vitamin D deficiency Surgical History History of back surgery S/P cataract surgery S/P knee surgery Family History Father Prostate cancer Mother Hypertension Depression Diabetes Unknown Cancer Denies family history of Ovarian cancer Myocardial infarction Breast cancer Colorectal cancer Social History Smoking Status: Never smoker Tobacco Type: Cigarettes Age Started Using Tobacco: 19; Age Quit Using Tobacco: 62; Cigarettes Per Day: 1-2 a day if that; Second Hand Exposure: Yes; Hx Alcohol Use: No Hx Substance Use: No Preferred Language: Albanian Communication Ability: Effective Visual Impairment: No Limitations Hearing Ability: Normal 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 Job Required: No Beliefs That Will Affect Care: None marital status: Current Living Situation: Spouse current occupational status: retired Other Information That Helps Us Care for You: No Feels Safe at Home: Yes Childhood Exposure to Second-Hand Smoke: Yes Diet Comment: keto Dental Care, Regularly: Yes Physical Activity Frequency: Does not Exercise Seatbelt Use: sometimes Sunscreen Use: Yes Assistive Devices: Cane Review of Systems Review of Systems: As per HPI, all 10 systems reviewed, all other ROS negative Physical Exam Physical Exam: GENERAL: Comfortable, slightly anxious, morbidly obese, no respiratory distress SKIN: Normal color, warm HEENT: [place] palpebral conjunctivae, no ptosis, dry buccal mucosa NECK : Supple, short neck, no tenderness CHEST : CTA, no tenderness HEART : RRR, systolic murmur best heard over left sternal border ABDOMEN: Some distention, nontender EXTREMITIES : No LE swelling/tenderness, no other conspicuous deformities noted NEUROLOGIC : Coherent, no facial asymmetry, no other gross focality Results & Data Results & Data ([facility]) Vital Signs (Past 12 Hours) Vital Signs Temp Pulse Resp BP Pulse Ox 07/28/21 17:50 37.2 C 89 18 193/79 H 96 Laboratory Results Laboratory Results WBC 20.72 K/uL (4.8-10.8) H 07/28/21 18:15 RBC 4.39 M/uL (4.2-5.4) 07/28/21 18:15 Hgb 13.4 g/dL (12.0-16.0) 07/28/21 18:15 Hct 40.6 % (37-47) 07/28/21 18:15 MCV 92.5 fL (80-100) 07/28/21 18:15 MCH 30.5 pg (25-34) 07/28/21 18:15 MCHC 33.0 g/dL (32-36) 07/28/21 18:15 RDW Std Deviation 46.5 fL (36.4-46.3) H 07/28/21 18:15 RDW Coeff of [place] 13.7 % (11.5-14.5) 07/28/21 18:15 Plt Count 261 K/uL (130-400) 07/28/21 18:15 MPV 10.3 fL (7.4-10.4) 07/28/21 18:15 Immature Gran % (Auto) 0.2 % 07/28/21 18:15 Neut % (Auto) 82.7 % 07/28/21 18:15 Lymph % (Auto) 9.6 % 07/28/21 18:15 Adams % (Auto) 6.2 % 07/28/21 18:15 Eos % (Auto) 1.2 % 07/28/21 18:15 Baso % (Auto) 0.1 % 07/28/21 18:15 Neut # (Auto) 17.14 K/uL (1.4-6.5) H 07/28/21 18:15 Lymph # (Auto) 1.98 K/uL (1.2-3.4) 07/28/21 18:15 Adams # (Auto) 1.29 K/uL (0.11-0.59) H 07/28/21 18:15 Eos # (Auto) 0.24 K/uL (0-0.5) 07/28/21 18:15 Baso # (Auto) 0.03 K/uL (0-0.2) 07/28/21 18:15 Immature Gran # (Auto) 0.04 K/uL (0.00-0.02) H 07/28/21 18:15 Sodium 139 mmol/L (136-145) 07/28/21 18:15 Potassium 4.2 mmol/L (3.5-5.1) 07/28/21 18:15 Chloride 107 mmol/L (98-107) 07/28/21 18:15 Carbon Dioxide 26 mmol/L (21-32) 07/28/21 18:15 Anion Gap 6.0 (3-11) 07/28/21 18:15 BUN 15 mg/dl (7-18) 07/28/21 18:15 Creatinine 0.94 mg/dl (0.6-1.2) 07/28/21 18:15 Est Cr Clr Drug Dosing Not Reportable 07/28/21 18:15 Est GFR ( Amer) 66.9 ml/min 07/28/21 18:15 Est GFR (Non-Af Amer) 57.7 ml/min 07/28/21 18:15 BUN/Creatinine Ratio 15.7 (10-20) 07/28/21 18:15 Glucose 280 mg/dl (70-99) H 07/28/21 18:15 Calcium 9.2 mg/dl (8.5-10.1) 07/28/21 18:15 Magnesium 1.8 mg/dl (1.8-2.4) 07/28/21 18:15 Magnesium Cancelled 07/28/21 18:15 Total Bilirubin 0.6 mg/dl (0.2-1) 07/28/21 18:15 AST 23 U/L (15-37) 07/28/21 18:15 ALT 29 (12-78) 07/28/21 18:15 Alkaline Phosphatase 65 U/L (45-117) 07/28/21 18:15 Troponin I < 0.015 ng/ml (0-0.045) 07/28/21 18:15 Total Protein 7.4 gm/dl (6.4-8.2) 07/28/21 18:15 Albumin 3.4 gm/dl (3.4-5.0) 07/28/21 18:15 Globulin 4.0 gm/dl (2.5-4.0) 07/28/21 18:15 Albumin/Globulin Ratio 0.8 (0.9-2) L 07/28/21 18:15 TSH 1.400 uIu/ml (0.300-4.500) 07/28/21 18:15 TSH Cancelled 07/28/21 18:15 Urine Color Yellow 07/28/21 19:10 Urine Appearance Clear (Clear) 07/28/21 19:10 Urine pH 7.0 (4.5-7.5) 07/28/21 19:10 Ur Specific [place] 1.013 (1.000-1.030) 07/28/21 19:10 Urine Protein Negative (Negative) 07/28/21 19:10 Urine Glucose (UA) 2+ (Negative) H 07/28/21 19:10 Urine Ketones Negative (Negative) 07/28/21 19:10 Urine Blood 2+ (Negative) H 07/28/21 19:10 Urine Nitrite Negative (Negative) 07/28/21 19:10 Urine Bilirubin Negative (Negative) 07/28/21 19:10 Urine Urobilinogen Negative (Negative) 07/28/21 19:10 Ur Leukocyte Esterase Negative (Negative) 07/28/21 19:10 Urine WBC (Auto) 1-5 /hpf (0-5) 07/28/21 19:10 Urine RBC (Auto) 5-10 /hpf (0-4) H 07/28/21 19:10 U Hyaline Cast (Auto) 0 /lpf (0-5) 07/28/21 19:10 U Epithel Cells (Auto) 0-5 /lpf (0-5) 07/28/21 19:10 Urine Bacteria (Auto) Negative (Negative) 07/28/21 19:10 Impressions Chest X-Ray 07/28/21 18:22 XR chest 1V portable HISTORY: 81 years-old Female weakness acute weakness. COMPARISON: Chest radiograph 10/20/2020 TECHNIQUE: Portable AP view of the chest FINDINGS: The cardiac silhouette is upper limits of normal in size. Unchanged coarsening of the interstitium. No pneumothorax, large pleural effusion or overt pulmonary edema. Degenerative changes of the shoulders and spine. IMPRESSION: Cardiomegaly with unchanged interstitial coarsening. ACT 112: Negative or not required by law. The above report was generated using voice recognition software. It may contain grammatical, syntax or spelling errors. Electronically signed by: Mitchell Talley M.D. 07/28/2021 6:59 PM Diagnostic Findings EKG as per my interpretation : Rate 90, NSR, incomplete RBBB, 1 AVB, T wave abnormalities inferior and anterolateral leads
[2021-07-28] MEDS ORDERED: PATIENT'S HEIGHT AND/OR WEIGHT NEEDED SCH (20:15)
[2021-07-28] MEDS ORDERED: INSULIN GLARGINE SOLOSTAR 100 UNITS/ML 3 ML PEN SC STA (20:16)
[2021-07-28] MEDS ORDERED: METOPROLOL SUCC 50MG EXT REL TAB PO ONE (20:30)
[2021-07-28 20:37] LABS: Partial Thromboplastin Ratio 1.1; Partial Thromboplastin Time 27.7 Seconds (21.0-31.0)
[2021-07-28] MEDS ORDERED: ASPIRIN 81 MG ECTAB PO STA (21:17)
[2021-07-28] MEDS ORDERED: PATIENT'S HEIGHT AND/OR WEIGHT NEEDED STA (21:17)
[2021-07-28] MEDS ORDERED: DAPTOmycin 400 MG in SYRINGE 0 ML IV STA (21:36)
[2021-07-28] MEDS ORDERED: GLUCOSE 10 TABS/TUBE PO PRN (21:43)
[2021-07-28] MEDS ORDERED: HYDROmorphone INJ 0.5 MG/0.5 ML SYR IV PRN (21:43)
[2021-07-28] MEDS ORDERED: GLUCOSE 40% GEL 15 GM TUBE PO PRN (21:43)
[2021-07-28] MEDS ORDERED: DEXTROSE 50% 50 ML SYRINGE IV PRN (21:43)
[2021-07-28] MEDS ORDERED: SODIUM CHLORIDE 0.9% 1000ML 1,000 ML IV ONE (21:43)
[2021-07-28] MEDS ORDERED: GLUCAGON FOR INJ 1 MG VIAL SQ PRN (21:43)
[2021-07-28] MEDS ORDERED: CARBOHYDRATES FOR HYPOGLYCEMIA PO PRN (21:43)
[2021-07-28] MEDS ORDERED: NITROGLYCERIN SL 0.4 MG/TAB TAB SL PRN (21:43)
[2021-07-28] MEDS ORDERED: INSULIN ASPART PER UNIT SC SCH (22:15)
[2021-07-28] MEDS: DESVENLAFAXINE~ORDER AWAITING ACTION SCH ×2 (22:33→23:05)
[2021-07-29] MEDS: clonazePAM 0.5 MG TAB PO PRN (00:07)
[2021-07-29] MEDS ORDERED: traMADol HCL 50 MG TABLET PO STA ×2 (04:57→06:07)
[2021-07-29] MEDS ORDERED: SODIUM CHLORIDE 0.9% 500 ML IV ONE ×2 (04:57→06:04)
--- NOTE | 2021-07-29 04:59 | Communication Note ---
Date of Service: July 29, 2021 452 AM Patient complaining of chest pain going to her back and jaw, rated 6/10. Cardiac rate 110s, rapid A. fib on the monitor as per RN. SBP 70s as per RN. EKG as per my interpretation: Rate 110, A. fib, normal axis, RBBB, ST depression anterolateral leads WBC 25 Lactic acid 2.2 Troponin 0.029 AP Hypotension Multifactorial : New onset A. fib Severe sepsis (SIRS plus lactic acid elevation) secondary to complicated UTI IVF Amiodarone IV Heparin for thromboembolic prophylaxis TTE Re: New onset A. fib, chest pain N.p.o. until patient seen by Cardiology in anticipation of any procedure IVF, follow lactic acid, add Cefepime to Daptomycin Will relay to AM provider.
[2021-07-29] MEDS ORDERED: DIGOXIN 250 MCG in SYRINGE 9 ML IV ONE (05:15)
[2021-07-29] MEDS: MAGNESIUM SULFATE / D5W 1 GM/100 ML BAG IV SCH ×2 (05:25→07:21)
[2021-07-29] MEDS: PANTOprazole 40 MG TAB PO SCH (05:32)
[2021-07-29 05:42] LABS: Partial Thromboplastin Ratio 1.2; Partial Thromboplastin Time 30.9 Seconds (21.0-31.0)
[2021-07-29 05:53] LABS: Hematocrit (blood only) 38.3 % (37-47); Hemoglobin 12.7 g/dL (12.0-16.0); Mean Corpuscular Hemoglobin 30.8 pg (25-34); Mean Corpuscular Hgb Conc 33.2 g/dL (32-36); Mean Platelet Volume 10.7 fL (7.4-10.4); Platelet Count 255 K/uL (130-400); RDW Coefficient of Variation 13.8 % (11.5-14.5); RDW Standard Deviation 46.9 fL (36.4-46.3); Red Blood Count 4.12 M/uL (4.2-5.4); White Blood Count 25.42 K/uL (4.8-10.8)
[2021-07-29] MEDS ORDERED: SODIUM CHLORIDE 0.9% 1000ML 1,000 ML IV SCH (06:00)
[2021-07-29] MEDS ORDERED: AMIODARONE / D5W 150 MG/100 ML BAG IV STA (06:11)
[2021-07-29] MEDS ORDERED: AMIODARONE IV BOLUS & DRIP IV STA (06:11)
[2021-07-29] MEDS ORDERED: 0.2 MICRON FILTER SET 1 EA IV ONE (06:11)
[2021-07-29] MEDS ORDERED: STAT IV Infusion **Titration per Protocol STA (06:11)
[2021-07-29] MEDS ORDERED: AMIODARONE / D5W 360 MG/200 ML BAG IV ONE (06:21)
[2021-07-29 06:22] LABS: Basophils # (auto) 0.05 K/uL (0-0.2); Basophils % (auto) 0.2 %; Immature Granulocytes # (auto) 0.08 K/uL (0.00-0.02); Immature Granulocytes % (auto) 0.3 %; Lymphocytes # (auto) 2.67 K/uL (1.2-3.4); Lymphocytes % (auto) 10.5 %; Monocytes % (auto) 7.1 %; Neutrophils # (auto) 20.32 K/uL (1.4-6.5); Neutrophils % (auto) 79.9 %
[2021-07-29 06:46] LABS: BUN Creatinine Ratio 15.3 (10-20); Calcium 8.9 mg/dl (8.5-10.1); Creatinine Clr Calc Pharmacy 47.4 ml/min; Est GFR (African American) 57.8 ml/min; Est GFR (Non-African American) 49.9 ml/min; Potassium 3.5 mmol/L (3.5-5.1); Troponin I 0.029 ng/ml (0-0.045)
[2021-07-29] MEDS ORDERED: Heparin IV Adult Wt-Based Standard *NO* Bolus Protocol IV ONE (06:57)
[2021-07-29] MEDS ORDERED: Nursing to Pharmacy Communication SCH ×2 (07:15→14:45)
[2021-07-29] MEDS: SODIUM CHLORIDE 0.9% 1000ML 1,000 ML IV SCH ×2 (07:23→14:59)
[2021-07-29] MEDS: DESVENLAFAXINE~ORDER AWAITING ACTION SCH ×3 (07:24→23:12)
[2021-07-29] MEDS: INSULIN ASPART PER UNIT SC SCH ×4 (08:14→20:51)
[2021-07-29] MEDS: HEPARIN SODIUM/DEXTROSE 25,000 UNITS/500 ML BAG IV SCH (08:16)
[2021-07-29] MEDS ORDERED: ASPIRIN 81 MG ECTAB PO SCH (09:00)
[2021-07-29] MEDS ORDERED: INSULIN GLARGINE SOLOSTAR 100 UNITS/ML 3 ML PEN SQ SCH ×2 (09:00→21:00)
[2021-07-29] MEDS ORDERED: ENOXAPARIN INJ 40 MG/0.4 ML SYR SQ SCH (09:00)
[2021-07-29] MEDS: CEFEPIME 2,000 MG in SYRINGE 0 ML IV SCH ×2 (09:12→20:50)
[2021-07-29] MEDS ORDERED: POTASSIUM CHLORIDE CRTAB 20 MEQ TABCR PO STA (10:10)
[2021-07-29 10:42] LABS: Troponin I 0.247 ng/ml (0-0.045)
[2021-07-29] MEDS: AMIODARONE / D5W 360 MG/200 ML BAG IV SCH ×2 (11:41→15:00)
--- NOTE | 2021-07-29 13:34 | Cardiology Consultation ---
Date of Consultation July 29, 2021 Assessment & Plan (1) Chest pain: (2) Elevated troponin: (3) Paroxysmal atrial fibrillation: (4) Hypertension: 1. Chest discomfort: Although she is little bit confused as to the general cause of her chest discomfort due to the fact that she has fibromyalgia I am concerned that she has having chest discomfort due to myocardial ischemia. Her electrocardiogram is suggestive as is the troponin. At the moment she is pain-free, I think we will need to do a catheterization to evaluate her chest discomfort and we discussed doing it today however she does have a UTI, she is pain-free and I think it is reasonable to wait until her acute situation is resolved. We can certainly do it as an emergency if required. 2. Elevated troponin: Although not very high her troponin is rising consistent with ischemia. Her electrocardiogram is suggestive and this may have occurred due to atrial fibrillation, the rapid heart rate appears to have worsened her ST depression. I would agree with controlling her rate, as well as her blood pressure, and trending troponin. 3. Atrial fibrillation: She did have about 5 hours of atrial fibrillation is somewhat rapid heart rate and I agree with continuing amiodarone for the time being. We may not want to use that over the long run but currently it would be a good idea not TAVR in atrial fibrillation since that seems to have worsened ischemia and also to maintain heart rate. She should also be on an anti coagulant both for her suspected coronary artery disease and for her atrial fibrillation. I would use a beta-sean as well. 4. High blood pressure: I would make sure that she has good control of her blood pressure, which it currently is. I do have her scheduled for catheterization on Sunday with Dr. Jo. History of Present Illness Reason for Consultation: Chest discomfort, atrial fibrillation Attending Physician: Cm Mccabe MD History of Present Illness This is a 81-year-old woman who has a history of diabetes mellitus, hypercholesterolemia, hypertension, GERD, fibromyalgia as well as recent difficulty with a urinary tract infection. She presented to [facility] in October 2020 with several episodes of chest discomfort and had been having hematuria. Her cardiac history includes a catheterization 2007, I have reviewed the records from that era and I can find only a reference to the fact that she had it on March 25, 2008 but I cannot find any description or report. She recalls that Dr. Ferro did the procedure. She does not recall what it showed. She does not have exertional chest discomfort, she tells me however that she has a lot of pain because she has fibromyalgia but is not limited in activities although she is not very active. She tells me that she is under a lot of stress at home because her has a lot of medical issues. She presented in October 2020 with two 10-minute episodes of sharp substernal chest discomfort, one on October 20, 2020 and one on October 19, 2020. She describes radiation to her left arm, her back and her left flank but she is also having some difficulty with the urinary tract infection. She does not recall ever having this type of discomfort before. She specifically denies any exertional chest tightness or discomfort. On presentation she was pain-free and remained so during her hospitalization. Her evaluation in the hospital included several troponin measurements, the first of which was 0.214 on presentation and the second was 0.388. Her third troponin was back to 0.152. She did have risk factors of diabetes mellitus and with that and her chest discomfort we did a dobutamine stress echo on October 26, 2020. This showed no electrocardiographic changes and her echo images were negative for ischemia at 90% of her maximum predicted heart rate. The discomfort was therefore felt to be noncardiac however it seems likely that she does have coronary disease but not to the point where we should consider invasive evaluation. We did increase her Crestor to 10 mg daily and she was tolerating it well although I do not believe is still on it. She presents now with symptoms weakness and fatigue for 3 to 4 days. She has also had some chest discomfort, however with her history of fibromyalgia and noncardiac chest discomfort this is hard for her to evaluate. Her troponin was initially negative however on the second measurement had increased to 0.247. Her electrocardiogram on arrival demonstrated sinus rhythm with anterolateral T wave abnormalities. Following admission she went into atrial fibrillation with a somewhat rapid heart rate, she remained in atrial fibrillation for about 5 hours with an average heart rate in the 90s on average. Amiodarone was initiated during the atrial fibrillation. An electrocardiogram done during atrial fibrillation on July 29, 2021 at 4:46 AM showed inferior and anterior ST depression concerning for ischemia. On my discussion with her it was not clear whether she was having chest discomfort at that time although she may have. An echocardiogram today demonstrates normal left ventricular systolic function with mild concentric left ventricular hypertrophy and normal wall motion. The left atrium is mildly dilated and she is moderate aortic stenosis with mild mitral regurgitation. At the time of my evaluation this afternoon she was not having chest discomfort, she is having difficulty with her UTI but at the moment is not having cardiac symptoms. It does not seem that she felt the atrial fibrillation, it may be that she has asymptomatic atrial fibrillation of which she is unaware. Allergies Allergy/AdvReac Type Severity Reaction Status Date / Time amoxicillin Allergy Severe Shortness Verified 07/28/21 19:31 of breath Penicillins Allergy Severe Shortness Verified 07/28/21 19:31 of breath shellfish derived Allergy Severe syncope Verified 07/28/21 19:31 sulfamethoxazole Allergy Severe Anaphylaxis Verified 07/28/21 19:31 [From Bactrim] trimethoprim [From Bactrim] Allergy Severe Anaphylaxis Verified 07/28/21 19:31 Ahsbvlc-OBA-LdB Reductase Allergy Intermediate Body Pain Verified 07/28/21 19:31 Inhibitor [Axngkkf-Lvw-Zsi Reductase Inhibitor] codeine Allergy Unknown SOB,CHANGE Verified 07/28/21 19:31 MENTAL STATUS - TAKES VICODIN AT HOME morphine Allergy Unknown FAMILY Verified 07/28/21 19:31 REACTION /FATHER AND DAUGHTER metformin [From Glucophage] AdvReac Intermediate Diarrhea Verified 07/28/21 19:31 Home Medications Medication Instructions Recorded Confirmed Type clonazepam 0.5 mg tablet 0.5 mg PO BID PRN #60 tab 07/22/20 07/28/21 Rx blood sugar diagnostic (OneTouch #400 ea 09/15/20 06/30/21 Rx Verio test strips) blood-glucose meter (OneTouch #1 ea 09/15/20 06/30/21 Rx Verio Meter) lancets 33 gauge (OneTouch Delica #400 ea 09/20/20 06/30/21 Rx Lancets) omega-3 fatty acids 1,000 mg 1,000 mg PO DAILY 11/22/20 07/28/21 History capsule (Fish Oil Concentrate) desvenlafaxine succinate 50 mg 50 mg PO QPM #90 tab 01/25/21 07/28/21 Rx tablet,extended release 24 hr insulin syringe-needle U-100 0.3 #400 ea 02/10/21 06/30/21 Rx mL 30 gauge x 1/2" (UltiCare) metoprolol succinate 50 mg 50 mg PO HS #90 tab 07/12/21 12/16/21 Rx tablet,extended release 24 hr cholecalciferol (vitamin D3) 125 125 mcg PO DAILY 07/28/21 07/28/21 History mcg (5,000 unit) tablet (Vitamin D3) ciprofloxacin HCl 250 mg tablet 250 mg PO Q12 07/28/21 07/28/21 History insulin aspart U-100 100 unit/mL 1 sliding scale dose SUBCUT UD 07/28/21 07/28/21 History (3 mL) subcutaneous pen (Novolog Flexpen U-100 Insulin aspart) insulin glargine 100 unit/mL 22 unit SQ BID 07/28/21 07/28/21 History subcutaneous solution (Lantus U-100 Insulin) omeprazole 20 mg capsule,delayed 20 mg PO DAILYBB 07/28/21 07/28/21 History release tramadol 50 mg tablet 50 mg PO Q12 PRN 07/28/21 07/28/21 History Patient History Medical History Anxiety disorder Cardiovascular arteriosclerosis Depression Diabetes mellitus with diabetic nephropathy Diabetes type 2, uncontrolled Diabetic peripheral neuropathy Fibromyalgia Gastro-esophageal reflux Hypercholesterolemia Irritable bowel syndrome Obesity Vitamin D deficiency Surgical History History of back surgery S/P cataract surgery S/P knee surgery Family History Father Prostate cancer Mother Hypertension Depression Diabetes Unknown Cancer Denies family history of Ovarian cancer Myocardial infarction Breast cancer Colorectal cancer Social History Smoking Status: Never smoker Tobacco Type: Cigarettes Age Started Using Tobacco: 19; Age Quit Using Tobacco: 62; Cigarettes Per Day: 1-2 a day if that; Second Hand Exposure: Yes; Hx Alcohol Use: No Hx Substance Use: No Preferred Language: Bahamian Communication Ability: Effective Visual Impairment: No Limitations Hearing Ability: Normal Stripper Cutter Machine Required: No Beliefs That Will Affect Care: None marital status: Current Living Situation: Spouse current occupational status: retired How many Children do You have: 3 Other Information That Helps Us Care for You: No Feels Safe at Home: Yes Childhood Exposure to Second-Hand Smoke: Yes Diet Comment: keto Dental Care, Regularly: Yes Physical Activity Frequency: Does not Exercise Seatbelt Use: sometimes Sunscreen Use: Yes Assistive Devices: Cane Physical Exam Physical Exam: Constitutional: Alert, cooperative and in no distress. She is overweight. HEENT: Unremarkable Neck: No jugular venous distention, carotid pulses are normal and equal bilater ally without bruits. Pulmonary: Clear to auscultation bilaterally. Cardiac: Regular rhythm with a grade 2/6 crescendo decrescendo murmur at the base, no gallop or rub. Abdomen: Soft, nontender with normal bowel sounds. Extremities: No edema. Distal pulses intact. Neurologic: No focal findings. Skin: No rash, ecchymoses or petechiae. Results & Data ([facility]) Vital Signs (Past 12 Hours) Vital Signs Temp Pulse Pulse Resp BP Pulse Ox 07/29/21 11:30 36.5 C 61 16 90/49 L 92 07/29/21 08:00 36.9 C 83 16 90/54 L 96 07/29/21 06:46 88/53 L 07/29/21 06:03 84/56 L 07/29/21 04:30 74/47 L 07/29/21 03:30 37.0 C 94 H 16 119/66 91 07/29/21 01:58 90 Laboratory Results Cardiac Enzymes 07/28/21 07/28/21 07/29/21 Range/Units 18:15 20:06 05:17 AST 23 (15-37) U/L Troponin I < 0.015 < 0.015 0.029 (0-0.045) ng/ml 07/29/21 07/29/21 Range/Units 10:04 16:03 AST (15-37) U/L Troponin I 0.247 H* 0.795 H* (0-0.045) ng/ml Coagulation 07/28/21 07/29/21 07/29/21 Range/Units 20:06 05:17 14:15 APTT 27.7 30.9 54.7 H* (21.0-31.0) Seconds Lipids 07/29/21 Range/Units 10:04 Triglycerides 98 (0-150) mg/dl Cholesterol 116 (0-200) mg/dl HDL Cholesterol 44 mg/dl Cholesterol/HDL Ratio 3 CBC 07/28/21 07/29/21 Range/Units 18:15 05:17 WBC 20.72 H 25.42 H (4.8-10.8) K/uL RBC 4.39 4.12 L (4.2-5.4) M/uL Hgb 13.4 12.7 (12.0-16.0) g/dL Hct 40.6 38.3 (37-47) % Plt Count 261 255 (130-400) K/uL Neut # (Auto) 17.14 H 20.32 H (1.4-6.5) K/uL Lymph # (Auto) 1.98 2.67 (1.2-3.4) K/uL [place] # (Auto) 1.29 H 1.80 H (0.11-0.59) K/uL Eos # (Auto) 0.24 0.50 (0-0.5) K/uL Baso # (Auto) 0.03 0.05 (0-0.2) K/uL Comprehensive Metabolic Panel 07/28/21 07/29/21 Range/Units 18:15 05:17 Sodium 139 139 (136-145) mmol/L Potassium 4.2 3.5 D (3.5-5.1) mmol/L Chloride 107 109 H (98-107) mmol/L Carbon Dioxide 26 23 (21-32) mmol/L BUN 15 16 (7-18) mg/dl Creatinine 0.94 1.06 (0.6-1.2) mg/dl Glucose 280 H 182 H (70-99) mg/dl Calcium 9.2 8.9 (8.5-10.1) mg/dl AST 23 (15-37) U/L ALT 29 (12-78) Alkaline Phosphatase 65 (45-117) U/L Total Protein 7.4 (6.4-8.2) gm/dl Albumin 3.4 (3.4-5.0) gm/dl Intake and Output 07/29/21 07/29/21 07/29/21 06:59 14:59 22:59 Intake Total 942.5 / 1442.5 1592.832 / 1648.220 55.388 / 1648.220 Balance 942.5 / 1442.5 1592.832 / 1648.220 55.388 / 1648.220 Intake: IV 942.5 / 1442.5 1472.832 / 1528.220 55.388 / 1528.220 Amiodarone / D5w 150 mg In 100 100 / 100 ml @ 600 mls/hr IV NOW STA Rx#: [id number] Amiodarone / D5w 360 mg In 200 168.165 / 223.553 55.388 / 223.553 ml @ 0.5 MG/MIN 16.667 mls/hr IV .Q12H TIFFANY Rx#:[id number] Magnesium Sulfate / D5w 1 gm In 196.667 / 196.667 100 ml @ 50 mls/hr IV Q2H TIFFANY Rx#:[id number] Sodium Chloride 0.9% 1000ML 1, 342.5 / 342.5 608 / 608 000 ml @ 80 mls/hr IV .[id number] TIFFANY Rx#:[id number] Sodium Chloride 0.9% 500 ml @ 500 / 500 500 / 500 500 mls/hr IV .Q1H ONE Rx#: [id number] Oral 120 / 120 Other: # Unmeasured Voids 1 Weight 102.6 kg Weight Measurement Method Built in [facility] Diagnostic Findings Telemetry: Sinus rhythm currently, she had about 5 hours of atrial fibrillation during the night with a heart rate in the 90s. PG Care Time/CCT Total # of Minutes Spent Total Time Spent with Patient: Total time spent is greater than 50% in coordination of care (as documented) at patient's floor/unit and/or counseling patient: Coding Level of Care Code 31657 Initial Inpt Care Lvl 3 Diagnoses Chest pain R07.2 Chest pain type: precordial pain Elevated troponin R77.8 Paroxysmal atrial fibrillation I48.0 Hypertension I10 Hypertension type: essential hypertension (1) Chest pain Chest pain type: precordial pain Qualified Code(s): R07.2 - Precordial pain (2) Hypertension Hypertension type: essential hypertension Qualified Code(s): I10 - Essential (primary) hypertension
[2021-07-29 14:46] LABS: Partial Thromboplastin Ratio 2.1
[2021-07-29 14:56] LABS: Partial Thromboplastin Time 54.7 Seconds (21.0-31.0)
--- NOTE | 2021-07-29 16:12 | XCELERA ---
[id number]
[2021-07-29] MEDS: ASPIRIN 81 MG ECTAB PO SCH (20:50)
[2021-07-29] MEDS: INSULIN GLARGINE SOLOSTAR 100 UNITS/ML 3 ML PEN SQ SCH (20:52)
[2021-07-29] MEDS: METOPROLOL SUCC 50MG EXT REL TAB PO SCH (20:52)
[2021-07-29] MEDS: DAPTOmycin 300 MG in SYRINGE 0 ML IV SCH (20:53)
[2021-07-29] MEDS: DESVENLAFAXINE SUCCINATE ER TABLET 50MG PO SCH (21:33)
[2021-07-29] MEDS ORDERED: DAPTOmycin 400 MG in SYRINGE 0 ML IV SCH (22:00)
--- NOTE | 2021-07-29 22:30 | Electrocardiogram Report ---
Test Reason : Blood Pressure : / mmHG Vent. Rate : 092 BPM Atrial Rate : 092 BPM P-R Int : 222 ms QRS Dur : 108 ms QT Int : 410 ms P-R-T Axes : 072 -22 -08 degrees QTc Int : 507 ms Sinus rhythm with 1st degree A-V block Incomplete right bundle branch block Inferior infarct , age undetermined Abnormal ECG When compared with ECG of 21-OCT-2020 11:46, Incomplete right bundle branch block is now Present Inferior infarct is now Present T wave inversion now evident in Inferior leads T wave inversion now evident in Anterolateral leads Confirmed by Flo Polanco ([id number]) on 07/29/2021 10:30:06 PM Referred By: REFERRED SELF Confirmed By:Flo Polanco
--- NOTE | 2021-07-29 22:39 | Electrocardiogram Report ---
Test Reason : Blood Pressure : / mmHG Vent. Rate : 108 BPM Atrial Rate : 067 BPM P-R Int : 000 ms QRS Dur : 118 ms QT Int : 384 ms P-R-T Axes : 000 044 -53 degrees QTc Int : 514 ms Atrial fibrillation with rapid ventricular response Right bundle branch block Marked ST abnormality, possible inferior subendocardial injury Marked ST abnormality, possible anterolateral subendocardial injury Abnormal ECG When compared with ECG of 28-JUL-2021 18:35, (unconfirmed) Atrial fibrillation has replaced Sinus rhythm Criteria for Inferior infarct are no longer Present ST more depressed Anterolateral leads Confirmed by Flo Polanco ([id number]) on 07/29/2021 10:38:58 PM Referred By: REFERRED SELF Confirmed By:Flo Polanco
--- NOTE | 2021-07-29 22:44 | Hospitalist Progress Note ---
Date of Service July 29, 2021 Assessment & Plan (1) Chest pain: Plan: Patient on admission with chest pain and urinary symptoms Possible related to demand ischemia Troponin on admission mildly elevated, then peak to 0.85 now trending down 0.[address] changes Currently on IV heparin drip for the A. fib Echo showed normal left ventricular wall motion Cardiology consulted Case discussed with cardiology plan to take to cardiac cath on Sunday Continue aspirin 81 mg and metoprolol 50 at bedtime Continue monitoring telemetry UTI Elevated lactic acid level WBC on admission 20K, then increased to 20 5K Continue IV antibiotic with with cefepime and Dapto Follow-up urine culture and blood culture Continue monitor CBC Paroxysmal atrial fibrillation Possible related to acute infection Converted to normal sinus rhythm this morning Cardiology on board recommend to continue amiodarone and IV heparin drip Rate control currently Hypertension BP elevated in the ER On metoprolol 50 mg at bedtime Continue monitor BP Diabetes type 2 Most recent hemoglobin A1c 7.4 on July 2021 On Lantus and insulin sliding scale Continue monitor blood sugar Full code Disposition Continue monitor in PCU Patient daughter requesting updates from providers. Ms. Britt Ryder, contact #[phone]. Admission and Anticipated Discharge Date Admission Date: July 28, 2021 Subjective Patient was seen and examined for follow-up of chest pain and urinary symptoms Lying in bed with no acute distress Patient said that she feels much better today She denies any chest pain, palpitation, dizziness, shortness of breath. Review of Systems Review of Systems: All systems reviewed & are unremarkable except as noted in Subjective Physical Exam Physical Exam: General- No acute distress Head- atraumatic Eyes- PERRL, EOMI, ENT- oropharynx clear Neck- supple, no JVD Lungs- clear to auscultation Heart- regular rhythm; +murmur murmur Abdomen- normal bowel sounds, soft, nontender Extremities- no calf tenderness Neuro- alert, oriented x 3; PERRL, EOMI; no facial palsy; no dysarthria Skin- warm & dry Results & Data Results & Data ([facility]) Vital Signs (Past 12 Hours) Vital Signs Temp Pulse Pulse Resp BP Pulse Ox 07/29/21 20:33 36.7 C 69 20 133/85 93 07/29/21 16:00 36.8 C 88 16 108/64 96 12/17/21 15:21 98 07/29/21 15:05 64 07/29/21 11:30 36.5 C 61 16 90/49 L 92 (1) Chest pain Chest pain type: precordial pain Qualified Code(s): R07.2 - Precordial pain
[2021-07-30] MEDS ORDERED: POTASSIUM CHLORIDE 40 MEQ in SODIUM CHLORIDE 0.9% 1000ML 1,000 ML IV ONE (00:30)
[2021-07-30] MEDS: ACETAMINOPHEN 325 MG TAB PO PRN (00:56)
[2021-07-30] MEDS: AMIODARONE / D5W 360 MG/200 ML BAG IV SCH ×2 (02:47→15:13)
[2021-07-30] MEDS: HEPARIN SODIUM/DEXTROSE 25,000 UNITS/500 ML BAG IV SCH ×2 (02:47→23:46)
[2021-07-30] MEDS: PANTOprazole 40 MG TAB PO SCH (05:25)
[2021-07-30 06:59] LABS: Partial Thromboplastin Ratio 2.3
[2021-07-30 07:04] LABS: BUN Creatinine Ratio 18.9 (10-20); Calcium 8.5 mg/dl (8.5-10.1); Creatinine Clr Calc Pharmacy 56.6 ml/min; Est GFR (African American) 70.5 ml/min; Est GFR (Non-African American) 60.8 ml/min; Potassium 3.9 mmol/L (3.5-5.1)
[2021-07-30 07:08] LABS: Hematocrit (blood only) 34.1 % (37-47); Hemoglobin 10.9 g/dL (12.0-16.0); Mean Corpuscular Hemoglobin 29.9 pg (25-34); Mean Corpuscular Volume 93.4 fL (80-100); Mean Platelet Volume 10.8 fL (7.4-10.4); Platelet Count 229 K/uL (130-400); RDW Coefficient of Variation 14.3 % (11.5-14.5); RDW Standard Deviation 48.7 fL (36.4-46.3); Red Blood Count 3.65 M/uL (4.2-5.4); White Blood Count 14.68 K/uL (4.8-10.8)
[2021-07-30 07:14] LABS: Troponin I 0.769 ng/ml (0-0.045)
[2021-07-30 07:58] LABS: Partial Thromboplastin Time 61.1 Seconds (21.0-31.0)
[2021-07-30] MEDS: INSULIN ASPART PER UNIT SC SCH ×4 (09:02→21:41)
[2021-07-30] MEDS: INSULIN GLARGINE SOLOSTAR 100 UNITS/ML 3 ML PEN SQ SCH ×2 (09:03→21:44)
[2021-07-30] MEDS: CEFEPIME 2,000 MG in SYRINGE 0 ML IV SCH ×2 (09:05→21:42)
[2021-07-30] MEDS: DESVENLAFAXINE~ORDER AWAITING ACTION SCH ×2 (09:06→15:17)
[2021-07-30] MEDS: clonazePAM 0.5 MG TAB PO PRN ×2 (10:50→23:46)
[2021-07-30] MEDS: DESVENLAFAXINE SUCCINATE ER TABLET 50MG PO SCH (15:13)
[2021-07-30] MEDS ORDERED: PROMETHAZINE HCL 12.5 MG in SODIUM CHLORIDE 0.9% 50 ML IV ONE (17:30)
[2021-07-30] MEDS: DAPTOmycin 300 MG in SYRINGE 0 ML IV SCH (21:41)
[2021-07-30] MEDS: ASPIRIN 81 MG ECTAB PO SCH (21:42)
[2021-07-30] MEDS: METOPROLOL SUCC 50MG EXT REL TAB PO SCH (21:43)
--- NOTE | 2021-07-30 23:52 | Hospitalist Progress Note ---
Date of Service July 30, 2021 Assessment & Plan (1) Chest pain: Plan: Patient on admission with chest pain and urinary symptoms Possible related to demand ischemia Troponin on admission mildly elevated, then peak to 0.85 now trending down 0.[address] changes Continue IV heparin drip for the A. fib Echo showed normal left ventricular wall motion Cardiology consulted Case discussed with cardiology plan to take to cardiac cath on Sunday Continue aspirin 81 mg and metoprolol 50 at bedtime Continue monitoring telemetry UTI Elevated lactic acid level WBC on admission 20K, then increased to 25K. WBC now trending down to 14 K Continue IV antibiotic with with cefepime and Dapto Urine culture grew pinpoint so far, will follow urine culture Blood culture no growth Continue monitor CBC Paroxysmal atrial fibrillation Possible related to acute infection Converted to normal sinus rhythm this morning Cardiology on board Continue amiodarone, metoprolol and IV heparin drip Rate control currently Hypertension BP elevated in the ER On metoprolol 50 mg at bedtime Continue monitor BP Diabetes type 2 Most recent hemoglobin A1c 7.4 on July 2021 On Lantus and insulin sliding scale Continue monitor blood sugar Full code Disposition Continue monitor in PCU Patient daughter requesting updates from providers. Ms. Britt Ryder, contact #[phone]. Admission and Anticipated Discharge Date Admission Date: July 28, 2021 Subjective Patient was seen and examined for follow-up of chest pain and urinary symptoms Sitting in chair with no acute distress with present Patient said that she feels much better today She denies any chest pain, palpitation, dizziness, shortness of breath. Review of Systems Review of Systems: All systems reviewed & are unremarkable except as noted in Subjective Physical Exam Physical Exam: General- No acute distress Head- atraumatic Eyes- PERRL, EOMI, ENT- oropharynx clear Neck- supple, no JVD Lungs- clear to auscultation Heart- regular rhythm; +murmur murmur Abdomen- normal bowel sounds, soft, nontender Extremities- no calf tenderness Neuro- alert, oriented x 3; PERRL, EOMI; no facial palsy; no dysarthria Skin- warm & dry Results & Data Results & Data ([facility]) Vital Signs (Past 12 Hours) Vital Signs Temp Pulse Pulse Resp BP Pulse Ox 07/30/21 16:21 61 07/30/21 16:19 36.5 C 72 18 132/64 98 07/30/21 13:00 36.5 C 75 16 135/75 98 (1) Chest pain Chest pain type: precordial pain Qualified Code(s): R07.2 - Precordial pain
[2021-07-31] MEDS: DESVENLAFAXINE~ORDER AWAITING ACTION SCH ×4 (00:19→23:52)
[2021-07-31] MEDS: AMIODARONE / D5W 360 MG/200 ML BAG IV SCH ×2 (02:36→14:51)
--- NOTE | 2021-07-31 06:18 | Electrocardiogram Report ---
Test Reason : Blood Pressure : / mmHG Vent. Rate : 072 BPM Atrial Rate : 072 BPM P-R Int : 198 ms QRS Dur : 100 ms QT Int : 468 ms P-R-T Axes : 071 -02 040 degrees QTc Int : 512 ms Normal sinus rhythm Incomplete right bundle branch block Nonspecific ST and T wave abnormality Prolonged QT Abnormal ECG When compared with ECG of 29-JUL-2021 04:46, Sinus rhythm has replaced Atrial fibrillation Vent. rate has decreased BY [address] less depressed in Anterior leads Confirmed by Lacho Alvarenga ([id number]) on 07/31/2021 6:17:42 AM Referred By: REFERRED SELF Confirmed By:Lacho Alvarenga
[2021-07-31] MEDS: PANTOprazole 40 MG TAB PO SCH (06:39)
[2021-07-31 07:11] LABS: Partial Thromboplastin Time 53.3 Seconds (21.0-31.0)
[2021-07-31] MEDS: INSULIN GLARGINE SOLOSTAR 100 UNITS/ML 3 ML PEN SQ SCH ×2 (07:46→21:12)
[2021-07-31] MEDS: INSULIN ASPART PER UNIT SC SCH ×4 (07:51→21:11)
[2021-07-31] MEDS: CEFEPIME 2,000 MG in SYRINGE 0 ML IV SCH ×2 (07:52→21:06)
[2021-07-31 10:34] LABS: Hematocrit (blood only) 35.4 % (37-47); Hemoglobin 11.3 g/dL (12.0-16.0); Mean Corpuscular Hemoglobin 30.2 pg (25-34); Mean Corpuscular Hgb Conc 31.9 g/dL (32-36); Mean Corpuscular Volume 94.7 fL (80-100); Mean Platelet Volume 11.6 fL (7.4-10.4); Platelet Count 253 K/uL (130-400); RDW Coefficient of Variation 14.1 % (11.5-14.5); RDW Standard Deviation 48.8 fL (36.4-46.3); Red Blood Count 3.74 M/uL (4.2-5.4); White Blood Count 9.65 K/uL (4.8-10.8)
[2021-07-31 10:41] LABS: BUN Creatinine Ratio 20.7 (10-20); Creatinine Clr Calc Pharmacy 61.5 ml/min; Est GFR (African American) 77.7 ml/min; Est GFR (Non-African American) 67.1 ml/min; Potassium 4.3 mmol/L (3.5-5.1)
[2021-07-31] MEDS: DESVENLAFAXINE SUCCINATE ER TABLET 50MG PO SCH (16:37)
[2021-07-31] MEDS: LORATADINE 10 MG TAB PO SCH (16:38)
[2021-07-31] MEDS: DAPTOmycin 300 MG in SYRINGE 0 ML IV SCH (21:00)
[2021-07-31] MEDS: METOPROLOL SUCC 50MG EXT REL TAB PO SCH (21:00)
[2021-07-31] MEDS: HEPARIN SODIUM/DEXTROSE 25,000 UNITS/500 ML BAG IV SCH (21:01)
[2021-07-31] MEDS: ASPIRIN 81 MG ECTAB PO SCH (21:01)
[2021-07-31] MEDS: clonazePAM 0.5 MG TAB PO PRN (23:15)
--- NOTE | 2021-07-31 23:27 | Hospitalist Progress Note ---
Date of Service July 31, 2021 Assessment & Plan (1) Chest pain: Plan: Patient on admission with chest pain and urinary symptoms Possible related to demand ischemia Troponin on admission mildly elevated, then peak to 0.85 now trending down 0.[address] changes Continue IV heparin drip for the A. fib Echo showed normal left ventricular wall motion Cardiology consulted Case discussed with cardiology plan to take to cardiac cath on Sunday Continue aspirin 81 mg and metoprolol 50 at bedtime We will make n.p.o. after midnight UTI Elevated lactic acid level WBC on admission 20K, then increased to 25K. WBC now trending down to 14 K Continue IV antibiotic with with cefepime and Dapto Urine culture grew p grew yeast not Lakisha albicans Blood culture no growth Patient said that she was antibiotic for UTI prior coming to the ER Reviewed outpatient chart her urine cx collected on 07/25 grew Enterococcus species. She was starting on Cipro outpatient then changed to macrobid We will check outpatient record to confirm and see how many days antibiotic she completed before admitting Will discontinue Cefepime WBC normalized Paroxysmal atrial fibrillation Possible related to acute infection Converted to normal sinus rhythm this morning Cardiology on board Continue amiodarone, metoprolol and IV heparin drip Rate control currently Hypertension BP elevated in the ER On metoprolol 50 mg at bedtime Continue monitor BP Diabetes type 2 Most recent hemoglobin A1c 7.4 on July 2021 On Lantus and insulin sliding scale Continue monitor blood sugar Full code Disposition Continue monitor in PCU Patient daughter requesting updates from providers. Ms. Britt Ryder, contact #[phone]. Admission and Anticipated Discharge Date Admission Date: July 28, 2021 Subjective Patient was seen and examined for follow-up of chest pain and urinary symptoms Sitting in chair with no acute distress with present She said she feels a tickle in her throat due to congestion and postnasal drip She denies any chest pain, palpitation, dizziness, shortness of breath. Review of Systems Review of Systems: All systems reviewed & are unremarkable except as noted in Subjective Physical Exam Physical Exam: General- No acute distress Head- atraumatic Eyes- PERRL, EOMI, ENT- oropharynx clear Neck- supple, no JVD Lungs- clear to auscultation Heart- regular rhythm; +murmur murmur Abdomen- normal bowel sounds, soft, nontender Extremities- no calf tenderness Neuro- alert, oriented x 3; PERRL, EOMI; no facial palsy; no dysarthria Skin- warm & dry Results & Data Results & Data ([facility]) Vital Signs (Past 12 Hours) Vital Signs Temp Pulse Pulse Resp BP Pulse Ox 07/31/21 18:57 36.3 C L 57 L 18 152/67 H 96 07/31/21 17:09 60 07/31/21 16:07 36.7 C 62 19 143/53 H 96 (1) Chest pain Chest pain type: precordial pain Qualified Code(s): R07.2 - Precordial pain
[2021-08-01] MEDS ORDERED: traMADol HCL 50 MG TABLET PO STA (00:54)
[2021-08-01] MEDS ORDERED: METOPROLOL TARTRATE 1 MG/ML VIAL IV STA (00:57)
[2021-08-01] MEDS: ACETAMINOPHEN 325 MG TAB PO PRN ×2 (01:01→21:27)
[2021-08-01 01:45] LABS: Basophils # (auto) 0.03 K/uL (0-0.2); Basophils % (auto) 0.3 %; Eosinophils # (auto) 0.54 K/uL (0-0.5); Eosinophils % (auto) 4.7 %; Hematocrit (blood only) 34.6 % (37-47); Hemoglobin 11.5 g/dL (12.0-16.0); Immature Granulocytes # (auto) 0.14 K/uL (0.00-0.02); Immature Granulocytes % (auto) 1.2 %; Lymphocytes # (auto) 3.22 K/uL (1.2-3.4); Lymphocytes % (auto) 28.3 %; Mean Corpuscular Hemoglobin 30.3 pg (25-34); Mean Corpuscular Hgb Conc 33.2 g/dL (32-36); Mean Corpuscular Volume 91.1 fL (80-100); Mean Platelet Volume 10.9 fL (7.4-10.4); Monocytes # (auto) 0.98 K/uL (0.11-0.59); Monocytes % (auto) 8.6 %; Neutrophils # (auto) 6.47 K/uL (1.4-6.5); Neutrophils % (auto) 56.9 %; Platelet Count 265 K/uL (130-400); RDW Coefficient of Variation 13.7 % (11.5-14.5); RDW Standard Deviation 45.5 fL (36.4-46.3); White Blood Count 11.38 K/uL (4.8-10.8)
[2021-08-01 02:05] LABS: BUN Creatinine Ratio 20.9 (10-20); Calcium 9.3 mg/dl (8.5-10.1); Creatinine Clr Calc Pharmacy 63.8 ml/min; Est GFR (African American) 81.3 ml/min; Est GFR (Non-African American) 70.1 ml/min; Partial Thromboplastin Ratio 1.9; Potassium 3.8 mmol/L (3.5-5.1)
[2021-08-01 02:14] LABS: Albumin Globulin Ratio 0.8 (0.9-2); Bilirubin,Total 0.3 mg/dl (0.2-1); Globulin 3.9 gm/dl (2.5-4.0); Total Protein 6.9 gm/dl (6.4-8.2); Troponin I 0.311 ng/ml (0-0.045)
[2021-08-01 02:17] LABS: Partial Thromboplastin Time 48.7 Seconds (21.0-31.0)
[2021-08-01] MEDS: AMIODARONE / D5W 360 MG/200 ML BAG IV SCH ×2 (03:14→15:51)
[2021-08-01] MEDS: PANTOprazole 40 MG TAB PO SCH (05:05)
[2021-08-01] MEDS: INSULIN GLARGINE SOLOSTAR 100 UNITS/ML 3 ML PEN SQ SCH ×2 (08:19→21:07)
[2021-08-01] MEDS: INSULIN ASPART PER UNIT SC SCH ×4 (08:19→21:11)
[2021-08-01] MEDS: CEFEPIME 2,000 MG in SYRINGE 0 ML IV SCH (08:20)
[2021-08-01] MEDS: DESVENLAFAXINE~ORDER AWAITING ACTION SCH (08:20)
[2021-08-01] MEDS: LORATADINE 10 MG TAB PO SCH ×2 (08:20→11:32)
[2021-08-01] MEDS: traMADol HCL 50 MG TABLET PO PRN ×3 (08:47→21:08)
[2021-08-01] MEDS: clonazePAM 0.5 MG TAB PO PRN ×2 (08:48→21:09)
[2021-08-01] MEDS: PROMETHAZINE HCL 12.5 MG in SODIUM CHLORIDE 0.9% 50 ML IV PRN ×2 (10:38→11:12)
[2021-08-01] MEDS: LIDOCAINE 5% 1 PATCH TD SCH (11:33)
[2021-08-01] MEDS ORDERED: HEPARIN (PORCINE) 1000 UNIT/ML 10 ML (CATH LAB USE ONLY) ONE (13:40)
[2021-08-01] MEDS ORDERED: niCARdipine HCL INJ 2.5 MG/ML 10 ML AMP ONE (13:40)
[2021-08-01] MEDS ORDERED: fentaNYL citrate 100 MCG/2 ML VIAL ONE (13:41)
[2021-08-01] MEDS ORDERED: MIDAZOLAM HCL 1 MG/ML 2ML VIAL ONE (13:41)
[2021-08-01] MEDS ORDERED: NITROGLYCERIN/D5W 100MCG/ML 20ML SYR ONE (13:42)
--- NOTE | 2021-08-01 13:52 | Pre Anesthesia Assessment ---
Date of Service August 01, 2021 Pre Sedation Assessment Vital Signs Temp Pulse Pulse Pulse Resp BP BP 08/01/21 13:10 78 16 L 16 175/80 H 08/01/21 10:52 98.6 F 67 149/65 H 08/01/21 08:00 55 L 08/01/21 07:16 97.9 F 57 L 16 150/81 H 08/01/21 04:23 97.9 F 64 18 159/71 H 08/01/21 01:04 70 08/01/21 00:56 173/66 H 08/01/21 00:37 182/72 H 07/31/21 23:28 98.1 F 73 20 07/31/21 18:57 97.3 F L 57 L 18 152/67 H 07/31/21 17:09 60 07/31/21 16:07 98.1 F 62 19 143/53 H Pulse Ox 08/01/21 13:10 92 08/01/21 10:52 90 08/01/21 08:00 08/01/21 07:16 97 08/01/21 04:23 95 08/01/21 01:04 08/01/21 00:56 08/01/21 00:37 07/31/21 23:28 94 07/31/21 18:57 96 07/31/21 17:09 07/31/21 16:07 96 Cardiovascular RRR, no murmur, no edema Respiratory normal respiratory effort, lungs clear to auscultation Pre-Sedation Airway Assessment Smoking Status: Never smoker Hx Sleep Apnea: No Hx Difficult Intubation: No Short, Thick Neck: No Thyromental Distance: > or= 3.5 Finger Breadths Oral Cavity: + WNL Mallampati Class: II ASA: ASA3 NPO Status Date of Last Intake of Fluids: 07/31/21 Time of Last Intake of Fluids: 20:00 Date of Last Intake of Solid Food: 07/31/21 Time of Last Intake of Solid Foods: 20:00 Procedure Planning Contraindications for Sedation: none Current Medications Reviewed: Yes Notes The planned sedation has been discussed with the patient. Informed Consent was obtained. I have identified the patient, determined the appropriateness of sedation and have assessed the patient immediately prior to the procedure. All medicine(s) and interventions are by my order.
[2021-08-01] MEDS ORDERED: CLOPIDOGREL BISULFATE 300 MG TAB ONE (14:52)
--- NOTE | 2021-08-01 14:57 | Post Anesthesia Assessment ---
Date of Service August 01, 2021 Post Sedation Assessment Vital Signs Temp Pulse Pulse Pulse Resp BP BP 08/01/21 13:10 78 16 L 16 175/80 H 08/01/21 10:52 98.6 F 67 149/65 H 08/01/21 08:00 55 L 08/01/21 07:16 97.9 F 57 L 16 150/81 H 08/01/21 04:23 97.9 F 64 18 159/71 H 08/01/21 01:04 70 08/01/21 00:56 173/66 H 08/01/21 00:37 182/72 H 07/31/21 23:28 98.1 F 73 20 07/31/21 18:57 97.3 F L 57 L 18 152/67 H 07/31/21 17:09 60 07/31/21 16:07 98.1 F 62 19 143/53 H Pulse Ox 08/01/21 13:10 92 08/01/21 10:52 90 08/01/21 08:00 08/01/21 07:16 97 08/01/21 04:23 95 08/01/21 01:04 08/01/21 00:56 08/01/21 00:37 07/31/21 23:28 94 07/31/21 18:57 96 07/31/21 17:09 07/31/21 16:07 96 Recovery Score Activity: Moves 4 extremities Respiration: Deep Breath/Cough Circulation: +/-20% PreAnes Value Consciousness: Fully Awake Oxygen Saturation: O2 needed for >90% Discharge Sedation Level of Care: Fast Track Phase II Post Sedation Plan On clinical assessment, the patient appears to have tolerated the sedation without complications. Patient is recovering as anticipated. Patient will continue to be monitored by nursing and may be discharged when sedation discharge criteria are met per below protocol. Upon Completions of procedure up to 15 minutes continue every 5 minute vital signs and the P.A.R. score; then discharge to a Phase I or Fast Track to Phase II per the following guidelines: * Discharge Patient to appropriate Phase II area if PAR is 8 or greater or return to pre- procedure baseline. The post - procedure orders will be as directed. * If PAR score is less than 8 or not return to pre-procedure baseline then patient will follow Phase I monitoring till PAR is reached for Phase II. The Phase I may be done in procedure room or may call to secure a Phase I area. * If naloxone or flumazenil are used for reversal, hold in Phase I for continued monitoring from when last reversal dose was given for a minimum of 60 minutes or longer pending the nurse and/or physician discretion of patient condition before discharge to Phase II. Please call the Sedation Physician to re-evaluate and complete post-note for discharge to Phase II area. Do NOT discharge from procedure sedation or Phase 1 until post- sedation evaluation note is complete by procedure /sedation MD Sedation Discharge Instructions to be given to the patient at discharge to home.
[2021-08-01] MEDS ORDERED: SODIUM CHLORIDE 0.9% 1000ML 1,000 ML IV SCH (15:00)
--- NOTE | 2021-08-01 16:17 | Cardiac Catheterization ---
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 Cardiac Status Clinical evaluation leading to the procedure CAD Presenation: Non STEMI Anginal Classification: CCS IV Heart Failure: No Cardiogenic Shock within 24 Hours: No Cardiac Arrest within 24 Hours: No Imaging Studies Past 6 Months: Yes Stress Studies Past 6 Months: No Diagnostic Physicians Name: Terence Jo MD Status: Elective Closure Device Percutaneous Entry Location: Radial Closure Device: Radial Band Recommendations: PCI without planned CABG PCI Indication: PCI for high risk Non-AURORA Intraprocedure Events Significant Disection: No Perforation: No Cardiac Cath Procedure Full Procedure Date August 01, 2021 Pre-Procedure Diagnosis Pre-Procedure Diagnosis: Non STEMI AUC Score AUC Score: 8 Post-Procedure Diagnosis Post-Procedure Diagnosis: Severe CAD and Successful PCI Procedure(s) Performed Procedure(s) Performed: Coronary Angiography and Drug Eluting Stent Air Quality Specialist Terence Jo MD Landfill Attendant(s) Showers Estimated Blood Loss Estimated Blood Loss: 15 Medication(s) Medication(s): Clopidogrel, Fentanyl, Heparin, Lidocaine 1%, Nicardipine, Nitroglycerin and Versed Summary of Findings Indication: NSTEMI Access: 6 Fr right radial artery Catheters: Igo, pigtail, EBU 3.5 guide Findings: LM -normal caliber, 20% distal stenosis LAD -medium caliber, 20 to 30% mid segment disease, distal vessel with luminal irregularities as wraps around apex. Small D1 without significant disease. Circumflex -medium caliber, 80 to 90% mid segment stenosis. Medium OM 2 without significant disease. Small distal AV groove circumflex with 50% stenosis just after takeoff of OM 2. RCA -dominant, small to medium caliber, diffuse moderate to severe mid segment disease up to 70%, distal vessel with luminal irregularities. -- PCI -- Antithrombotic therapy: Heparin, clopidogrel Procedure: Left main cannulated with EBU 3.5 guide Whisper wire passed across lesion into distal OM 2 Mid circumflex lesion predilated with 2.0 compliant balloon Dilated lesion stented with 2.5 x 18 mm [place] drug-eluting stent Stent post-dilated with 2.75 noncompliant balloon IC vasodilators administered for spasm Post procedure DIONNA 3 flow, stent well expanded with minimal residual stenosis and no apparent cardiac complications. Arterial Closure: TR band Summary: 1. Multivessel coronary artery disease -80 to 90% mid circumflex Small to medium caliber RCA with diffuse 60 to 70% mid disease 2. Successful PCI of mid circumflex with single drug-eluting stent (2.5 x 18 mm Rahul; postdilated with 2.75 NC). 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 Any exceptions are noted below. [facility] Card Cath Procedure Codes Cardiac Catheterization Procedure 1: Cardiovascular Cath Procedures: 27313 Coronaries Moderate Sedation Procedure 1: Sedation/Anesthesia: 60450 Mod Sedation by the same physician;Init15 Min Child Age 5 & Up Procedure 2: Sedation/Anesthesia: 49099 Mod Sedation by the same physician; Ea [id number] Minutes Stenting Procedure 1: Cardiovascular Stent Procedures: 98282 Perc transcatheter placement of intracoronary stent(s), with ang PG Care Time/CCT Total # of Minutes Spent Total Time Spent with Patient: Total time spent is greater than 50% in coordination of care (as documented) at patient's floor/unit and/or counseling patient:
[2021-08-01] MEDS: DESVENLAFAXINE SUCCINATE ER TABLET 50MG PO SCH (16:52)
[2021-08-01] MEDS: ASPIRIN 81 MG ECTAB PO SCH (21:07)
[2021-08-01] MEDS: METOPROLOL SUCC 50MG EXT REL TAB PO SCH (21:14)
--- NOTE | 2021-08-01 21:19 | Hospitalist Progress Note ---
Date of Service August 01, 2021 Assessment & Plan (1) Chest pain: Plan: Patient on admission with chest pain and urinary symptoms Possible related to demand ischemia Troponin on admission mildly elevated, then peak to 0.85 now trending down 0.[address] changes Continue IV heparin drip for the A. fib Echo showed normal left ventricular wall motion Cardiology consulted Case discussed with cardiology plan to take to cardiac cath on Sunday Continue aspirin 81 mg and metoprolol 50 at bedtime Schedule for cardiac cath today UTI Elevated lactic acid level WBC on admission 20K, then increased to 25K. WBC now trending down to 14 K IV antibiotic with with cefepime and Dapto Urine culture grew p grew yeast not Lakisha albicans Blood culture no growth Patient said that she had antibiotic for UTI prior coming to the ER Reviewed outpatient chart her urine cx collected on 07/25 grew Enterococcus species. She was starting on Cipro outpatient then changed to macrobid Cefepime discontinued and will give last dose of dapto tonight Continue monitor Paroxysmal atrial fibrillation Possible related to acute infection Converted to normal sinus rhythm this morning Cardiology on board Continue amiodarone, metoprolol and IV heparin drip Rate control currently Hypertension BP elevated in the ER On metoprolol 50 mg at bedtime Continue monitor BP Diabetes type 2 Most recent hemoglobin A1c 7.4 on July 2021 On Lantus and insulin sliding scale Continue monitor blood sugar Full code Disposition Continue monitor in PCU Patient daughter requesting updates from providers. Ms. Britt Ryder, contact #[phone]. Admission and Anticipated Discharge Date Admission Date: July 28, 2021 Subjective Patient was seen and examined for follow-up of chest pain and urinary symptoms Sitting in chair with no acute distress Pt said that she feels nauseated and complaint of body ache She is scheduled for cardiac cath today She denies any chest pain, palpitation, dizziness, shortness of breath. Review of Systems Review of Systems: All systems reviewed & are unremarkable except as noted in Subjective Physical Exam Physical Exam: General- No acute distress Head- atraumatic Eyes- PERRL, EOMI, ENT- oropharynx clear Neck- supple, no JVD Lungs- clear to auscultation Heart- regular rhythm; +murmur murmur Abdomen- normal bowel sounds, soft, nontender Extremities- no calf tenderness Neuro- alert, oriented x 3; PERRL, EOMI; no facial palsy; no dysarthria Skin- warm & dry Results & Data Results & [facility] ([facility]) Vital Signs (Past 12 Hours) Vital Signs Temp Pulse Pulse Pulse Resp BP BP 08/01/21 19:03 37.9 C H 66 20 127/72 08/01/21 17:37 36.8 C 65 18 134/57 L 08/01/21 16:43 63 125/78 08/01/21 16:15 65 153/76 H 08/01/21 16:00 62 65 153/76 H 08/01/21 15:44 37.0 C 64 16 153/76 H 08/01/21 15:10 78 16 L 16 169/90 H 08/01/21 14:55 78 16 L 16 165/87 H 08/01/21 13:10 78 16 L 16 175/80 H 08/01/21 10:52 37.0 C 67 149/65 H Pulse Ox 08/01/21 19:03 91 08/01/21 17:37 91 08/01/21 16:43 08/01/21 16:15 08/01/21 16:00 08/01/21 15:44 91 08/01/21 15:10 98 08/01/21 14:55 92 08/01/21 13:10 92 08/01/21 10:52 90 (1) Chest pain Chest pain type: precordial pain Qualified Code(s): R07.2 - Precordial pain
[2021-08-01] MEDS: DAPTOmycin 300 MG in SYRINGE 0 ML IV SCH (21:25)
[2021-08-02] MEDS: HEPARIN SODIUM/DEXTROSE 25,000 UNITS/500 ML BAG IV SCH (01:40)
[2021-08-02 03:15] LABS: Partial Thromboplastin Ratio 1.8
[2021-08-02] MEDS: AMIODARONE / D5W 360 MG/200 ML BAG IV SCH ×2 (03:15→14:39)
[2021-08-02 03:17] LABS: Partial Thromboplastin Time 48.1 Seconds (21.0-31.0)
[2021-08-02] MEDS: PANTOprazole 40 MG TAB PO SCH (06:08)
[2021-08-02] MEDS: CLOPIDOGREL BISULFATE 75 MG TAB PO SCH (08:13)
[2021-08-02] MEDS: LORATADINE 10 MG TAB PO SCH (08:13)
[2021-08-02] MEDS: INSULIN GLARGINE SOLOSTAR 100 UNITS/ML 3 ML PEN SQ SCH ×2 (08:14→20:35)
[2021-08-02] MEDS: LIDOCAINE 5% 1 PATCH TD SCH (08:15)
[2021-08-02] MEDS: traMADol HCL 50 MG TABLET PO PRN ×2 (08:21→20:34)
[2021-08-02] MEDS: INSULIN ASPART PER UNIT SC SCH ×4 (08:53→20:48)
[2021-08-02 09:23] LABS: Hematocrit (blood only) 33.6 % (37-47); Hemoglobin 11.2 g/dL (12.0-16.0); Mean Corpuscular Hemoglobin 30.7 pg (25-34); Mean Corpuscular Hgb Conc 33.3 g/dL (32-36); Mean Corpuscular Volume 92.1 fL (80-100); Mean Platelet Volume 10.7 fL (7.4-10.4); Platelet Count 243 K/uL (130-400); RDW Standard Deviation 46.8 fL (36.4-46.3); Red Blood Count 3.65 M/uL (4.2-5.4); White Blood Count 16.64 K/uL (4.8-10.8)
[2021-08-02 09:59] LABS: BUN Creatinine Ratio 18.6 (10-20); Calcium 9.2 mg/dl (8.5-10.1); Est GFR (African American) 55.3 ml/min; Est GFR (Non-African American) 47.7 ml/min; Potassium 3.7 mmol/L (3.5-5.1)
[2021-08-02 11:53] LABS: Albumin Level 2.9 gm/dl (3.4-5.0); Bilirubin Direct 0.3 mg/dl (0-0.2); Bilirubin,Total 0.7 mg/dl (0.2-1); Total Protein 7.2 gm/dl (6.4-8.2)
[2021-08-02] MEDS ORDERED: POTASSIUM CHLORIDE 10 MEQ TABCR PO STA (13:34)
[2021-08-02] MEDS ORDERED: MAGNESIUM SULFATE / D5W 1 GM/100 ML BAG IV ONE (13:45)
[2021-08-02] MEDS: ACETAMINOPHEN 325 MG TAB PO PRN (14:38)
--- NOTE | 2021-08-02 16:33 | Cardiology Progress Note ---
Date of Service August 02, 2021 Assessment & Plan (1) Chest pain: (2) Elevated troponin: (3) Paroxysmal atrial fibrillation: (4) Anticoagulant long-term use: (5) Hypertension: Plan: 1. Chest discomfort: Her chest discomfort is hard to sort out, she probably had some discomfort from her coronary artery disease although a lot of it probably is not, especially the rest symptoms. That probably has to do with fibromyalgia, etc. which has troubled her for a long time. 2. Elevated troponin: I believe her elevated troponin was secondary to demand ischemia caused by rapid atrial fibrillation in the setting of obstructive coronary artery disease. That disease has been corrected with intervention. 3. Atrial fibrillation: She did have about 5 hours of atrial fibrillation is somewhat rapid heart rate which was not symptomatic other than the development of angina probably from demand ischemia. At this point I do not think we need amiodarone, her daughter is concerned that she may be developing toxicity and although I do not think she would get she certainly could over the long run. I am therefore going to discontinue it. Even if she has atrial fibrillation from time to time as long she is on an anticoagulant (which she will need) this should be safe now that her coronary arteries are adequate. 4. Anticoagulation: She has been on heparin in large part due to her coronary artery disease. She does not need that now signed when to discontinue it and place her on Eliquis. She should stay on this for the long run. 5. High blood pressure: I would make sure that she has good control of her blood pressure, which it currently is. I reviewed her situation with her daughter by telephone and discussed this plan. She is agreeable. Admission and Anticipated Discharge Date Admission Date: July 28, 2021 Subjective She is still having difficulty with pain, most which is probably not anginal but due to something else, and she still has some difficulty with shortness of breath. She might feel little better now following intervention however. Physical Exam Physical Exam: Constitutional: Alert, cooperative and in no distress. She is overweight. HEENT: Unremarkable Neck: No jugular venous distention, carotid pulses are normal and equal bilaterally without bruits. Pulmonary: Clear to auscultation bilaterally. Cardiac: Regular rhythm with a grade 2/6 crescendo decrescendo murmur at the base, no gallop or rub. Abdomen: Soft, nontender with normal bowel sounds. Extremities: No edema. Distal pulses intact. Neurologic: No focal findings. Skin: No rash, ecchymoses or petechiae. Results & Data ([facility]) Vital Signs (Past 12 Hours) Vital Signs Temp Pulse Pulse Resp BP BP Pulse Ox 08/02/21 15:57 36.5 C 62 117/68 95 08/02/21 12:06 36 C L 92 H 16 114/55 L 08/02/21 08:00 58 L 08/02/21 07:31 36.8 C 58 L 14 110/73 94 Laboratory Results Cardiac Enzymes 08/02/21 Range/Units 09:04 AST 26 (15-37) U/L Coagulation 08/02/21 Range/Units 02:41 APTT 48.1 H* (21.0-31.0) Seconds CBC 08/02/21 Range/Units 09:04 WBC 16.64 H (4.8-10.8) K/uL RBC 3.65 L (4.2-5.4) M/uL Hgb 11.2 L (12.0-16.0) g/dL Hct 33.6 L (37-47) % Plt Count 243 (130-400) K/uL Comprehensive Metabolic Panel 08/02/21 08/02/21 Range/Units 09:04 09:04 Sodium 135 L (136-145) mmol/L Potassium 3.7 (3.5-5.1) mmol/L Chloride 105 (98-107) mmol/L Carbon Dioxide 20 L (21-32) mmol/L BUN 20 H (7-18) mg/dl Creatinine 1.10 D (0.6-1.2) mg/dl Glucose 223 H (70-99) mg/dl Calcium 9.2 (8.5-10.1) mg/dl Direct Bilirubin 0.3 H (0-0.2) mg/dl AST 26 (15-37) U/L ALT 36 (12-78) Alkaline Phosphatase 61 (45-117) U/L Total Protein 7.2 (6.4-8.2) gm/dl Albumin 2.9 L (3.4-5.0) gm/dl Intake and Output 08/02/21 08/02/21 08/02/21 06:59 14:59 22:59 Intake Total 412.914 / 1815.683 687.047 / 1112.047 425 / 1112.047 Output Total 200 / 950 Balance 212.914 / 865.683 687.047 / 1112.047 425 / 1112.047 Intake: IV 212.914 / 1415.683 327.047 / 327.047 Amiodarone / D5w 360 mg In 200 137.497 / 370.183 190.380 / 190.380 ml @ 0.5 MG/MIN 16.667 mls/hr IV .Q12H [facility] Rx#:[id number] Heparin Sodium/Dextrose 25,000 75.417 / 500.000 136.667 / 136.667 units In 500 ml @ 1,250 UNITS/ HR 25 mls/hr IV .Q20H [facility] Rx#: [id number] Oral 200 / 400 360 / 785 425 / 785 Output: Urine 200 / 950 Other: # Unmeasured Voids 2 Weight 104 kg Weight Measurement Method Built in [facility] Diagnostic Findings Telemetry: Sinus bradycardia, no atrial fibrillation. PG Care Time/CCT Total # of Minutes Spent Total Time Spent with Patient: Total time spent is greater than 50% in coordination of care (as documented) at patient's floor/unit and/or counseling patient: Coding Level of Care Code 23282 Subseq Hosp Care Lvl 3 Diagnoses Chest pain R07.2 Chest pain type: precordial pain Elevated troponin R77.8 Paroxysmal atrial fibrillation I48.0 Hypertension I10 Hypertension type: essential hypertension Anticoagulant long-term use Z79.01 (1) Chest pain Chest pain type: precordial pain Qualified Code(s): R07.2 - Precordial pain (2) Hypertension Hypertension type: essential hypertension Qualified Code(s): I10 - Essential (primary) hypertension
[2021-08-02] MEDS: DESVENLAFAXINE SUCCINATE ER TABLET 50MG PO SCH (16:59)
[2021-08-02] MEDS: clonazePAM 0.5 MG TAB PO PRN (20:35)
[2021-08-02] MEDS: APIXABAN 5 MG TABLET PO SCH (20:35)
[2021-08-02] MEDS: METOPROLOL SUCC 50MG EXT REL TAB PO SCH (20:37)
[2021-08-02] MEDS: ASPIRIN 81 MG ECTAB PO SCH (21:51)
--- NOTE | 2021-08-02 22:19 | Electrocardiogram Report ---
Test Reason : Blood Pressure : / mmHG Vent. Rate : 075 BPM Atrial Rate : 075 BPM P-R Int : 208 ms QRS Dur : 094 ms QT Int : 452 ms P-R-T Axes : 061 -07 -05 degrees QTc Int : 504 ms Normal sinus rhythm Prolonged QT Abnormal ECG When compared with ECG of 30-JUL-2021 08:46, No significant change Confirmed by Lacho Alvarenga ([id number]) on 08/02/2021 10:19:22 PM Referred By: REFERRED SELF Confirmed By:Lacho Alvarenga
--- NOTE | 2021-08-02 22:33 | Hospitalist Progress Note ---
Date of Service August 02, 2021 Assessment & Plan (1) Chest pain: Plan: Patient on admission with chest pain and urinary symptoms Possible related to demand ischemia Troponin on admission mildly elevated, then peak to 0.85 now trending down 0.[address] changes Echo showed normal left ventricular wall motion Status post cardiac cath showed multivessel coronary artery disease -80 to 90% mid circumflex Small to medium caliber RCA with diffuse 60 to 70% mid disease Successful PCI of mid circumflex with single drug-eluting stent (2.5 x 18 mm Rahul; postdilated with 2.75 NC). IV heparin drip changed to Eliquis 5 mg twice daily Continue metoprolol 50 mg Continue dual-antiplatelet therapy plus anticoagulation while hospitalized Cardiology recommend that she will be discharged with anticoagulation and clopidogrel for ideally 1 year Will need outpatient referral for cardiac Rehab UTI Elevated lactic acid level WBC on admission 20K, then increased to 25K. WBC now trending down to 14 K IV antibiotic with with cefepime and Dapto Urine culture grew p grew yeast not Lakisha albicans Blood culture no growth Patient said that she had antibiotic for UTI prior coming to the ER Reviewed outpatient chart her urine cx collected on 07/25 grew Enterococcus species. She was starting on Cipro outpatient then changed to macrobid Cefepime discontinued Completed the course of daptomycin last night Continue monitor Paroxysmal atrial fibrillation EKG on admission showed A. fib with rate 108 Possible related to UTI/infection Earlier today groundwater monitoring technician showed in and out of A. fib Currently on normal sinus rhythm with rate control Cardiology on board Amiodarone was discontinued Daughter was concerned about amiodarone toxicity No indication to suggest amiodarone toxicity Amiodarone was discontinued by cardiology Continue metoprolol 50 mg at bedtime IV heparin drip transition to Eliquis 5 mg twice daily Continue monitor on PCU Hypertension BP elevated in the ER On metoprolol 50 mg at bedtime Continue monitor BP Diabetes type 2 Most recent hemoglobin A1c 7.4 on July 2021 On Lantus and insulin sliding scale Continue monitor blood sugar Full code Disposition Continue monitor in PCU Patient daughter requesting updates from providers. Ms. Britt Ryder, contact #[phone]. Admission and Anticipated Discharge Date Admission Date: July 28, 2021 Subjective Patient was seen and examined for follow-up of chest discomfort Sitting in chair with no acute distress She said she feels much better today compared to yesterday She is no longer to have that chest discomfort that she had yesterday with deep breathing Earlier today groundwater monitoring technician showed in/out Afib Cardiology had a chance to spoke to daughter over the phone today She denies any chest pain, palpitation, dizziness, shortness of breath. Review of Systems Review of Systems: All systems reviewed & are unremarkable except as noted in Subjective Physical Exam Physical Exam: General- No acute distress Head- atraumatic Eyes- PERRL, EOMI, ENT- oropharynx clear Neck- supple, no JVD Lungs- clear to auscultation Heart- regular rhythm; +murmur Abdomen- normal bowel sounds, soft, nontender Extremities- no calf tenderness Neuro- alert, oriented x 3; PERRL, EOMI; no facial palsy; no dysarthria Skin- warm & dry Results & Data Results & Data ([facility]) Vital Signs (Past 12 Hours) Vital Signs Temp Pulse Pulse Resp BP BP Pulse Ox 08/02/21 19:02 37.1 C 63 18 106/48 L 94 08/02/21 15:57 36.5 C 62 117/68 95 08/02/21 12:06 36 C L 92 H 16 114/55 L (1) Chest pain Chest pain type: precordial pain Qualified Code(s): R07.2 - Precordial pain
[2021-08-03] MEDS: traMADol HCL 50 MG TABLET PO PRN (01:23)
[2021-08-03] MEDS: PANTOprazole 40 MG TAB PO SCH (05:53)
[2021-08-03 06:18] LABS: Hematocrit (blood only) 34.4 % (37-47); Hemoglobin 11.4 g/dL (12.0-16.0); Mean Corpuscular Hemoglobin 30.6 pg (25-34); Mean Corpuscular Hgb Conc 33.1 g/dL (32-36); Mean Corpuscular Volume 92.2 fL (80-100); Mean Platelet Volume 10.8 fL (7.4-10.4); Platelet Count 265 K/uL (130-400); RDW Coefficient of Variation 14.3 % (11.5-14.5); RDW Standard Deviation 48.3 fL (36.4-46.3); Red Blood Count 3.73 M/uL (4.2-5.4); White Blood Count 14.89 K/uL (4.8-10.8)
--- NOTE | 2021-08-03 06:26 | Electrocardiogram Report ---
Test Reason : Blood Pressure : / mmHG Vent. Rate : 059 BPM Atrial Rate : 059 BPM P-R Int : 192 ms QRS Dur : 100 ms QT Int : 498 ms P-R-T Axes : 071 016 028 degrees QTc Int : 493 ms Sinus bradycardia with sinus arrhythmia Nonspecific ST and T wave abnormality Prolonged QT Abnormal ECG When compared with ECG of 01-AUG-2021 00:45, No significant change was found Confirmed by Lacho Alvarenga ([id number]) on 08/03/2021 6:26:07 AM Referred By: REFERRED SELF Confirmed By:Lacho Alvarenga
[2021-08-03 07:04] LABS: BUN Creatinine Ratio 28.8 (10-20); Calcium 9.3 mg/dl (8.5-10.1); Creatinine Clr Calc Pharmacy 55.6 ml/min; Est GFR (African American) 69.5 ml/min; Potassium 3.9 mmol/L (3.5-5.1)
[2021-08-03] MEDS: LORATADINE 10 MG TAB PO SCH (08:26)
[2021-08-03] MEDS: APIXABAN 5 MG TABLET PO SCH (08:26)
[2021-08-03] MEDS: INSULIN GLARGINE SOLOSTAR 100 UNITS/ML 3 ML PEN SQ SCH (08:26)
[2021-08-03] MEDS: CLOPIDOGREL BISULFATE 75 MG TAB PO SCH (08:26)
[2021-08-03] MEDS: LIDOCAINE 5% 1 PATCH TD SCH (08:26)
[2021-08-03] MEDS: INSULIN ASPART PER UNIT SC SCH ×2 (08:32→12:34)
--- NOTE | 2021-08-03 10:01 | Cardiology Progress Note ---
Date of Service August 03, 2021 Assessment & Plan (1) Chest pain: (2) Elevated troponin: (3) Paroxysmal atrial fibrillation: (4) Anticoagulant long-term use: (5) Hypertension: Plan: 1. Chest discomfort: Her chest discomfort is hard to sort out, she probably had some discomfort from her coronary artery disease although a lot of it probably is not, especially the rest symptoms. That probably has to do with fibromyalgia, etc. which has troubled her for a long time. Currently she is feeling a little bit better but I suspect she will have recurrence of discomfort and it may still be hard to sort out in the future. 2. Elevated troponin: I believe her elevated troponin was secondary to demand ischemia caused by rapid atrial fibrillation in the setting of obstructive coronary artery disease. That disease has been corrected with intervention. 3. Atrial fibrillation: She did have about 5 hours of atrial fibrillation at a somewhat rapid heart rate after admission which was not symptomatic other than the development of angina probably from demand ischemia. Specifically she had no palpitations to give her an awareness of the arrhythmia. At this point I do not think we need an antiarrhythmic, her daughter is concerned that she may have been developing toxicity to amiodarone and although I do not think she would get toxicity this soon she certainly could over the long run if we continue it. Even if she has atrial fibrillation from time to time as long she is on an anticoagulant (which she will need) this should be safe now that her coronary arteries are adequate. Trying to evaluate her for paroxysmal atrial fibrillation would require some type of long-term monitoring, ideally an implantable loop recorder, so I would opt for ongoing anticoagulation. Even if she does not have atrial fibrillation very often now she will likely at some point in the future. 4. Anticoagulation: She is now on Eliquis and tolerating it well She should stay on this for the long run. 5. High blood pressure: I would make sure that she has good control of her blood pressure, which it currently is. I suspect she will go home soon if not today, I will arrange a follow-up visit in our office for 1 month. Admission and Anticipated Discharge Date Admission Date: July 28, 2021 Subjective She seems to be feeling a little bit better today, she has less body discomfort (which I still do not think was due to amiodarone or coronary artery disease for the most part) and seems to be in better spirits. She has no shortness of breath. Physical Exam Physical Exam: Constitutional: Alert, cooperative and in no distress. She is overweight. HEENT: Unremarkable Neck: No jugular venous distention, carotid pulses are normal and equal bilaterally without bruits. Pulmonary: Clear to auscultation bilaterally. Cardiac: Regular rhythm with a grade 2/6 crescendo decrescendo murmur at the base, no gallop or rub. Abdomen: Soft, nontender with normal bowel sounds. Extremities: No edema. Distal pulses intact. Her catheterization site in the right wrist looks good. Neurologic: No focal findings. Skin: No rash, ecchymoses or petechiae. Results & Data ([facility]) Vital Signs (Past 12 Hours) Vital Signs Temp Pulse Pulse Pulse Resp BP BP 08/03/21 07:16 37.0 C 61 18 113/67 08/03/21 03:16 36.7 C 62 18 106/50 L 08/02/21 23:08 37.2 C 70 18 108/54 L 08/02/21 23:00 66 Pulse Ox 08/03/21 07:16 91 08/03/21 03:16 91 08/02/21 23:08 93 08/02/21 23:00 Laboratory Results Cardiac Enzymes 08/02/21 Range/Units 09:04 AST 26 (15-37) U/L CBC 08/03/21 Range/Units 05:59 WBC 14.89 H (4.8-10.8) K/uL RBC 3.73 L (4.2-5.4) M/uL Hgb 11.4 L (12.0-16.0) g/dL Hct 34.4 L (37-47) % Plt Count 265 (130-400) K/uL Comprehensive Metabolic Panel 08/02/21 08/02/21 08/03/21 Range/Units 09:04 09:04 05:59 Sodium 135 L 135 L (136-145) mmol/L Potassium 3.7 3.9 (3.5-5.1) mmol/L Chloride 105 106 (98-107) mmol/L Carbon Dioxide 20 L 19 L (21-32) mmol/L BUN 20 H 26 H (7-18) mg/dl Creatinine 1.10 D 0.91 (0.6-1.2) mg/dl Glucose 223 H 130 H (70-99) mg/dl Calcium 9.2 9.3 (8.5-10.1) mg/dl Direct Bilirubin 0.3 H (0-0.2) mg/dl AST 26 (15-37) U/L ALT 36 (12-78) Alkaline Phosphatase 61 (45-117) U/L Total Protein 7.2 (6.4-8.2) gm/dl Albumin 2.9 L (3.4-5.0) gm/dl Intake and Output 08/02/21 08/03/21 08/03/21 22:59 06:59 14:59 Intake Total 801.598 / 1708.645 220 / 1708.645 0 / 0 Output Total Balance 801.598 / 1707.645 219 / 1707.645 0 / 0 Intake: IV 376.598 / 703.645 0 / 0 Amiodarone / D5w 360 mg In 200 35.348 / 225.728 ml @ 0.5 MG/MIN 16.667 mls/hr IV .Q12H [facility] Rx#:[id number] Heparin Sodium/Dextrose 25,000 241.25 / 377.917 units In 500 ml @ 1,250 UNITS/ HR 25 mls/hr IV .Q20H [facility] Rx#: [id number] Magnesium Sulfate / D5w 1 gm In 100 / 100 100 ml @ 50 mls/hr IV ONE ONE Rx#:[id number] Sodium Chloride 0.9% 1000ML 1, 0 / 0 000 ml @ 100 mls/hr IV .Q10H [facility] Rx#:[id number] Oral 425 / 1005 220 / 1005 Output: # Bowel Movements / Other: # Unmeasured Voids 1 1 Diagnostic Findings Telemetry: Sinus rhythm in the 60s, no atrial fibrillation. PG Care Time/CCT Total # of Minutes Spent Total Time Spent with Patient: Total time spent is greater than 50% in coordination of care (as documented) at patient's floor/unit and/or counseling patient: Coding Level of Care Code 94727 Subseq Hosp Care Lvl 2 Diagnoses Chest pain R07.2 Chest pain type: precordial pain Elevated troponin R77.8 Paroxysmal atrial fibrillation I48.0 Anticoagulant long-term use Z79.01 Hypertension I10 Hypertension type: essential hypertension (1) Chest pain Chest pain type: precordial pain Qualified Code(s): R07.2 - Precordial pain (2) Hypertension Hypertension type: essential hypertension Qualified Code(s): I10 - Essential (primary) hypertension
--- NOTE | 2021-08-03 11:09 | Discharge Summary ---
Date of Service August 03, 2021 Admission HPI Per Admitting Provider History obtained from patient, family, and records. Medical history significant for CAD as per records, hypertension, hyperlipidemia, DM2 insulin requiring, fibromyalgia, recurrent UTIs /pelvic floor prolapse, past tobacco abuse. Last confinement October 2020 for chest pain, elevated troponin. No inducible ischemia on outpatient dobutamine stress echo. Patient not feeling well the last few days. Increased urinary frequency, cloudy urine with some blood, weakness, fatigue, transient headache symptoms which patient gets when she has a urine infection as per patient. No fever. Some chills at home. Fair appetite. Patient initially prescribed Macrobid by PCP with abnormal outpatient UA. Ciprofloxacin later added by PCP due to history of Pseudomonas UTIs. Today, patient noted transient chest heaviness at home which patient attributes to fibromyalgia aches. No S OB, no diaphoresis. Patient given cefepime upon arrival at the ER. 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 Admission Exam Per Admitting Provider GENERAL: Comfortable, slightly anxious, morbidly obese, no respiratory distress SKIN: Normal color, warm HEENT: [place] palpebral conjunctivae, no ptosis, dry buccal mucosa NECK : Supple, short neck, no tenderness CHEST : CTA, no tenderness HEART : RRR, systolic murmur best heard over left sternal border ABDOMEN: Some distention, nontender EXTREMITIES : No LE swelling/tenderness, no other conspicuous deformities noted NEUROLOGIC : Coherent, no facial asymmetry, no other gross focality Principal Diagnosis Chest pain Coronary artery disease status post stent Paroxysmal atrial fibrillation Discharge Exam Constitutional + well hydrated; no acute distress Eyes PERRL, conjunctivae normal, anicteric sclerae ENMT external ear and nose normal, oropharynx normal Respiratory normal respiratory effort, lungs clear to auscultation Cardiovascular Rate/Rhythm: regular rate and regular rhythm Heart Sounds: + murmur S1 S2 Gastrointestinal (Abdomen) normal bowel sounds, soft, nontender, no hepatosplenomegaly Musculoskeletal No pedal edema Neurologic PERRL, EOMI, accommodation nl, no face palsy, no dysarthria Psychiatric A+Ox3, euthymic affect Discharge Data Allergies Allergy/AdvReac Type Severity Reaction Status Date / Time amoxicillin Allergy Severe Shortness Verified 07/28/21 19:31 of breath Penicillins Allergy Severe Shortness Verified 07/28/21 19:31 of breath shellfish derived Allergy Severe syncope Verified 07/28/21 19:31 sulfamethoxazole Allergy Severe Anaphylaxis Verified 07/28/21 19:31 [From Bactrim] trimethoprim [From Bactrim] Allergy Severe Anaphylaxis Verified 07/28/21 19:31 Popvhyw-IMO-GyL Reductase Allergy Intermediate Body Pain Verified 07/28/21 19:31 Inhibitor [Uwihdde-Jys-Abk Reductase Inhibitor] codeine Allergy Unknown SOB,CHANGE Verified 07/28/21 19:31 MENTAL STATUS - TAKES VICODIN AT HOME morphine Allergy Unknown FAMILY Verified 07/28/21 19:31 REACTION /FATHER AND DAUGHTER metformin [From Glucophage] AdvReac Intermediate Diarrhea Verified 07/28/21 19:31 Consultations 07/28/21 18:56 ED Decision to Admit Stat 07/28/21 21:43 Consult Cardiology Routine 08/01/21 15:01 Consult Cardiac Rehabilitation Routine Procedures Performed Operation Date: 08/01/21 12:00 Actual Procedures p Cath, Left with Cors and Vent - Austin Jo MD p Drug Eluting Stent SGl Vessel - Austin Jo MD s Cineradiography w/Routine Exam - Austin Jo MD Ordered Studies 08/01/21 06:56 CL Cath Imgs for PACS use only Routine Findings: LM -normal caliber, 20% distal stenosis LAD -medium caliber, 20 to 30% mid segment disease, distal vessel with luminal irregularities as wraps around apex. Small D1 without significant disease. Circumflex -medium caliber, 80 to 90% mid segment stenosis. Medium OM 2 without significant disease. Small distal AV groove circumflex with 50% stenosis just after takeoff of OM 2. RCA -dominant, small to medium caliber, diffuse moderate to severe mid segment disease up to 70%, distal vessel with luminal irregularities. -- PCI -- Antithrombotic therapy: Heparin, clopidogrel Procedure: Left main cannulated with EBU 3.5 guide Whisper wire passed across lesion into distal OM 2 Mid circumflex lesion predilated with 2.0 compliant balloon Dilated lesion stented with 2.5 x 18 mm Rahul drug-eluting stent Stent post-dilated with 2.75 noncompliant balloon IC vasodilators administered for spasm Post procedure DIONNA 3 flow, stent well expanded with minimal residual stenosis and no apparent cardiac complications. Arterial Closure: TR band Summary: 1. Multivessel coronary artery disease -80 to 90% mid circumflex Small to medium caliber RCA with diffuse 60 to 70% mid disease 2. Successful PCI of mid circumflex with single drug-eluting stent (2.5 x 18 mm [place]; postdilated with 2.75 NC). 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 Continue dual-antiplatelet therapy plus anticoagulation while hospitalized On discharge continue anticoagulation and clopidogrel for ideally 1 year Consult cardiac Rehab Hospital Course (1) Chest pain: Presented with chest pain and urinary symptoms Troponin on admission mildly elevated, then peak to 0.85 now trending down 0.[address] changes Echo showed normal left ventricular wall motion Status post cardiac cath showed multivessel coronary artery disease -80 to 90% mid circumflex Small to medium caliber RCA with diffuse 60 to 70% mid disease Successful PCI of mid circumflex with single drug-eluting stent (2.5 x 18 mm [place]; postdilated with 2.75 NC). IV heparin drip changed to Eliquis 5 mg twice daily Continue metoprolol 50 mg Cardiology recommend that she will be discharged with anticoagulation and clopidogrel for ideally 1 year Will need outpatient referral for cardiac Rehab Discussed with Incident Response Manager who will follow up with patient UTI Elevated lactic acid level WBC on admission 20K, then increased to 25K. WBC now trending down to 14 K IV antibiotic with with cefepime and Dapto Urine culture grew grew yeast not Lakisha albicans. Likely contaminant Blood culture no growth Patient said that she had antibiotic for UTI prior coming to the ER Outpatient chart -her urine cx collected on 07/25 grew Enterococcus species. She was starting on Cipro outpatient then changed to macrobid Cefepime discontinued Completed the course of daptomycin Paroxysmal atrial fibrillation EKG on admission showed A. fib with rate 108 Possible related to UTI/infection Currently on normal sinus rhythm with rate control Was comanaged with Incident Response Manager Daughter was concerned about amiodarone toxicity No indication to suggest amiodarone toxicity Amiodarone was discontinued by cardiology Continue metoprolol 50 mg at bedtime IV heparin drip transitioned to Eliquis 5 mg twice daily Hypertension BP controlled Diabetes type 2 Most recent hemoglobin A1c 7.4 on July 2021 Continue home antidiabetics Total Time Total Time Spent Total Time Spent (In Minutes): 50 Total Time Includes: Examination of the Patient, Discharge Planning, Medication Reconciliation and Communication With Other Providers Discharge Plan Discharge Items Patient Disposition: Home - Self-Care Reason For Visit: Chest pain Discharge Diagnosis: Chest pain Coronary artery disease status post stent Paroxysmal atrial fibrillation Activity: Resume your previous activity Non-emergency contact: Primary Care Provider and Incident Response Manager Call non-emergency contact if: you have any medication questions and your sym ptoms worsen Follow-up/Referrals: Flo Polanco MD [Physician] - 08/22/21 10:00 am Anand Mena DO [Primary Care Provider] - (Date & Time 08/08/2021 11:00 AM Provider Anand Mena DO Department Family Practice [address], [place] ) Diet: Carb Consistent or DM2 and Heart Healthy Addtl Attending Provider Instructions: Mrs Ryder You came to the hospital complaining of chest pain. You were extensively evaluated. You had a cardiac catheterization which showed some blockages and required a stent. You also had paroxysmal atrial fibrillation. He was started on blood thinner called Eliquis as well as an antiplatelet called clopidogrel [Plavix]. It is very important that you continue to take this medication as was prescri bed. Ensure you follow-up appointment with your Incident Response Manager and Primary Doctor as discussed. Please take your medications as prescribed. You can use the lidocaine patch as needed for your shoulder pain. It was a pleasure taking care of you Pending Studies at Discharge: No Stand-Alone Forms: My [facility] PaymentWorks, Smoking Cessation Medications and DC Order Prescriptions: New Eliquis 5 mg Tablet 5 mg PO BID Qty: 60 RF: 0 clopidogrel 75 mg Tablet 75 mg PO QAM Qty: 30 RF: 0 lidocaine 5 % Adhesive Patch,Medicated 1 patch transdermal QAM Qty: 15 RF: 0 Continued (DME) OneTouch Verio test strips Strip See Rx Instructions .ROUTE .MEDSUPPLY Qty: 400 RF: 0 (DME) blood-glucose meter [OneTouch Verio Meter] Misc See Rx Instructions .ROUTE .MEDSUPPLY Qty: 1 RF: 0 (DME) lancets [OneTouch Delica Lancets] 33 gauge misc See Rx Instructions .ROUTE .MEDSUPPLY Qty: 400 RF: 3 desvenlafaxine succinate 50 mg tablet extended release 24 hr 50 mg PO QPM Qty: 90 RF: 1 (DME) insulin syringe-needle U-100 [UltiCare] 0.3 mL 30 gauge x 1/2" syringe See Dose Instructions .ROUTE .MEDSUPPLY Qty: 400 RF: 1 metoprolol succinate 50 mg tablet extended release 24 hr 50 mg PO HS Qty: 90 RF: 1 clonazepam 0.5 mg tablet 0.5 mg PO BID PRN (Reason: anxiety) Qty: 60 RF: 2 omega-3 fatty acids [Fish Oil Concentrate] 1,000 mg capsule 1,000 mg PO DAILY RF: 0 tramadol 50 mg tablet 50 mg PO Q12 PRN (Reason: Pain, Severe) RF: 0 omeprazole 20 mg capsule,delayed release(DR/EC) 20 mg PO DAILYBB RF: 0 cholecalciferol (vitamin D3) [Vitamin D3] 125 mcg (5,000 unit) Tablet 125 mcg PO DAILY RF: 0 Lantus U-100 Insulin 100 unit/mL solution 22 unit SQ BID RF: 0 insulin aspart U-100 [Novolog Flexpen U-100 Insulin] 100 unit/mL (3 mL) insulin pen 1 sliding scale dose SUBCUT UD RF: 0 Discontinued ciprofloxacin HCl 250 mg tablet 250 mg PO Q12 RF: 0 Discharge Orders: Discharge Order (Routine); Ordered 08/03/21 Ordered By: Rachel Maldonado/Other Patient Handouts: Eliquis Oral Tablet 5 mg, Plavix Oral Tablet 75 mg, Cardiac Catheterization Dc Admission Data Admit Date/Time: 07/28/21 20:09 Attending Provider: Rachel Wells I. Admit Provider: Gm Christy Primary Care Provider: Anand Mena Other Providers: Gm Christy ; Flo Polanco Other Interventions: Discharge Summary Assessment (RN) Last Done: 08/03/21 13:49
--- NOTE | 2021-08-04 05:54 | Electrocardiogram Report ---
Test Reason : Blood Pressure : / mmHG Vent. Rate : 066 BPM Atrial Rate : 066 BPM P-R Int : 182 ms QRS Dur : 098 ms QT Int : 472 ms P-R-T Axes : 072 013 023 degrees QTc Int : 494 ms Normal sinus rhythm Prolonged QT Abnormal ECG When compared with ECG of 01-AUG-2021 10:50, Non-specific change in ST segment in Anterior leads Nonspecific T wave abnormality no longer evident in Anterior leads Confirmed by Lacho Alvarenga ([id number]) on 08/04/2021 5:53:34 AM Referred By: REFERRED SELF Confirmed By:Lacho Alvarenga
== END 2021-08-03 14:49 | disposition home or self-care (01) | DRG 854 ==
LOC: ED 17:46 → 2S 20:09 → SUATTDRO 20:09 → 2S 21:31

== ENCOUNTER 2024-01-21 09:23 | Inpatient (IN) ==
[2024-01-21 10:25] LABS: Basophils # (auto) 0.06 K/uL (0.00-0.20); Basophils % (auto) 0.8 %; Eosinophils # (auto) 0.16 K/uL (0.00-0.50); Hematocrit (blood only) 35.1 % (37.0-47.0); Hemoglobin 11.7 g/dl (12.0-16.0); Immature Granulocytes # (auto) 0.02 K/uL (0.01-0.20); Immature Granulocytes % (auto) 0.3 %; Lymphocytes % (auto) 28.9 %; Mean Corpuscular Hemoglobin 30.7 pg (25.0-34.0); Mean Corpuscular Hgb Conc 33.3 g/dL (32.0-36.0); Mean Corpuscular Volume 92.1 fL (80.0-100.0); Monocytes # (auto) 0.88 K/uL (0.11-0.59); Neutrophils # (auto) 4.55 K/uL (1.40-6.50); Platelet Count 242 K/uL (130-400); RDW Coefficient of Variation 13.1 % (11.5-14.5); RDW Standard Deviation 44.2 fL (36.4-46.3); Red Blood Count 3.81 M/uL (4.20-5.40); White Blood Count 7.97 K/ul (4.8-10.8)
[2024-01-21 10:41] LABS: Albumin Level 3.7 gm/dl (3.4-5.0); Bilirubin Direct 0.1 mg/dl (0-0.2); Bilirubin,Total 0.7 mg/dl (0.2-1.0); Calcium 9.4 mg/dl (8.6-10.3); Creatinine Clr Calc Pharmacy 41.7 ml/min; Est GFR (African American) 53.9 ml/min; Est GFR (Non-African American) 46.5 ml/min; Total Protein 7.4 gm/dl (6.0-8.3)
[2024-01-21 10:46] LABS: Troponin I High Sensitivity 47.4 pg/ml (0-14)
--- NOTE | 2024-01-21 10:46 | CT Scan Report ---
CT head/brain wo con CLINICAL HISTORY: unresponsive episode, ?seizure Technique: Contiguous axial CT images of the head were acquired from the base of the skull to the marge amy without intravenous contrast administration. Images were viewed in brain, subdural and bone [facility] ws. Automated dose lowering techniques and/or adjustment according to patient size were utilized for this exam. Comparison: Comparison is made to CT chest 02/26/2016 Findings: The ventricles, basal cisterns, and cerebral sulci are normal. There is no acute intracranial hemorrh age or evidence of acute territorial infarction. Neither mass effect, shift of the midline structures , nor abnormal extra-axial fluid collections are shown. Imaged portions of the paranasal sinuses and mastoid air cells are clear. The orbits appear normal. There are no acute fractures of the calvaria or scalp swelling. Impression: No acute intracranial hemorrhage, no evidence of acute territorial infarction or other acute intracra nial disease process. ACT 112: Negative or not required by law. Electronically signed by: Chandu Fernandez M.D. 01/21/2024 10:44 AM
--- NOTE | 2024-01-21 11:01 | Emergency Department Note ---
Impression & Plan Acute non-ST elevation myocardial infarction (NSTEMI), Syncope and collapse ED Provider Note NAME: MAGNUS SANCHEZ AGE: 83 SEX: F : 1940 ARRIVES VIA: Ambulance INFORMANT: Patient, ED PROVIDER(S): Daya Dumont MD CHIEF COMPLAINT: Episode of unresponsiveness HPI: This is a 83-year-old female presented for episode of unresponsiveness. Reportedly patient was in usual state of health until this morning. Patient was sitting down drinking water when she went unresponsive as per family. Her daughter noticed her out of the corner of her eye. She noticed patient had collected her chest, did a gasp and then went unresponsive. She notes that patient was shaking her left arm "like a robot ". This last about 30 seconds and patient spontaneously resolved. She was confused upon awakening asking what happened. Patient denies any current chest pain. No shortness of breath, fevers or chills. Patient herself states that she is remember this episode but is otherwise alert and oriented in her usual baseline. She does feel somewhat weak today. Otherwise patient is having ongoing diastolic heart failure and this is "flared up this week "as per daughter. ROS: See above HPI for pertinent positives & negatives. A total of 10 systems reviewed and were otherwise negative. PHYSICAL EXAMINATION: General: resting comfortably in no acute distress Head: Normocephalic and atraumatic Eyes: Normal inspection, extraocular muscles intact Ear, nose, throat: Normal external exam Neck: Normal range of motion Respiratory: lungs clear to auscultation bilaterally Cardiovascular: Regular rate/rhythm, no murmur GI: soft, nontender, no guarding or rebound Extremities: nontender, moves all extremities Neuro: The patient awake and alert, appropriately conversive, no focal deficits, symmetric faces Skin: Warm, dry, and intact MEDICAL DECISION MAKING: This is an 83-year-old female sent for an episode of responsiveness. Consider cardiogenic syncope, seizure, vasovagal syncope. -ECG independently interpreted by me with normal sinus rhythm, rate of 69, normal axis, normal DC, normal QRS, prolonged QTc, no ST segment elevations consistent with STEMI criteria, significant T wave versions in the inferior/lateral leads with ST depressions in leads II and aVL -Patient troponin is elevated today in the 40s. -Patient denies any current chest pain however will give aspirin/heparin. -Will discuss with cardiology. Discussed Dr. Franco who recommends admission. -Patient be placed on pads/crash cart in case this is cardiogenic syncope -High concern for NSTEMI at this time. -Patient discussed with [facility] service midlevel under the care of Dr. Robles Differential diagnosis: Seizure, stroke, cardiogenic syncope, NSTEMI, ACS ER treatment provided: See below Diagnostics interpreted by me: ECG: See above Cardiac Monitoring: An order was placed for continuous cardiac monitoring. The monitor shows a rate of 64 with sinus rhythm. Laboratory studies: As stated above and show below. Imaging studies: See below. Critical Care Note: I have personally spent 35 minutes of critical care time in the direct management of this patient. This includes bedside care, interpretation of diagnostic studies, and testing, discussion with consultants, patient, and family members, and other required patient management activities. This 35 minutes is in excess of all separately billable procedures. Past Med/Surg History Problem List (Updated 01/21/24 @ 16:36 by Daya Dumont MD) Syncope and collapse (Acute) Acute non-ST elevation myocardial infarction (NSTEMI) (Acute) Stroke-like symptoms Chest pain Acute on chronic heart failure with preserved ejection fraction (HFpEF) Aortic stenosis Diastolic CHF Anticoagulant long-term use Paroxysmal atrial fibrillation Chest pain Recurrent urinary tract infection Hearing loss Obesity (Chronic) Irritable bowel syndrome (Chronic) Hypercholesterolemia (Chronic) Gastro-esophageal reflux (Chronic) Fibromyalgia (Chronic) Diabetic peripheral neuropathy (Chronic) Diabetes type 2, uncontrolled (Chronic) Diabetes mellitus with diabetic nephropathy (Chronic) Depression (Chronic) Cardiovascular arteriosclerosis (Chronic) Anxiety disorder (Chronic) Heart disease (Chronic) Hypertension (Chronic) Medical History Nephrolithiasis Prolapse of female pelvic organs Mixed incontinence Pelvic floor dysfunction Gross hematuria Urinary tract infection due to Klebsiella species Vitamin D deficiency Surgical History S/P knee surgery S/P cataract surgery History of back surgery Family History Father Prostate cancer Mother Hypertension Depression Diabetes Unknown Cancer Denies family history of Ovarian cancer Myocardial infarction Breast cancer Colorectal cancer Social History Smoking Status: Former smoker Tobacco Type: Cigarettes Age Started Using Tobacco: 19; Age Quit Using Tobacco: 62; Cigarettes Per Day: 1-2 a day if that; Second Hand Exposure: Yes; Do You Dip or Chew Tobacco: No; Hx Alcohol Use: No Hx Substance Use: No Preferred Language: Citizen Of [place] Communication Ability: Effective Visual Impairment: No Limitations Hearing Ability: Normal 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 Beliefs That Will Affect Care: None marital status: Current Living Situation: Spouse and Family Current Living Situation Comment: Pt resides with spouse, spouse has hx of 4 strokes, and daughter current occupational status: retired How many Children do You have: 3 Feels Safe at Home: Yes Childhood Exposure to Second-Hand Smoke: Yes Diet: other and regular Diet Comment: keto Dental Care, Regularly: Yes Physical Activity Frequency: Does not Exercise Seatbelt Use: sometimes Sunscreen Use: Yes Assistive Devices: Cane Allergies Allergies Allergy/AdvReac Type Severity Reaction Status Date / Time amoxicillin Allergy Severe Shortness Verified 01/16/24 13:20 of breath Penicillins Allergy Severe Shortness Verified 01/16/24 13:20 of breath shellfish derived Allergy Severe syncope Verified 01/16/24 13:20 sulfamethoxazole Allergy Severe Anaphylaxis Verified 01/16/24 13:20 [From Bactrim] trimethoprim [From Bactrim] Allergy Severe Anaphylaxis Verified 01/16/24 13:20 Vywxirx-PRS-WvB Reductase Allergy Intermediate Body Pain Verified 01/16/24 13:20 Inhibitor [Rqvrpyi-Xmo-Usq Reductase Inhibitor] codeine Allergy Unknown SOB,CHANGE Verified 01/16/24 13:20 MENTAL STATUS - TAKES VICODIN AT HOME morphine Allergy Unknown FAMILY Verified 01/16/24 13:20 REACTION /FATHER AND DAUGHTER metformin [From Glucophage] AdvReac Intermediate Diarrhea Verified 01/16/24 13:20 Home Meds Home Medications Medication Instructions Recorded Confirmed insulin aspart U-100 100 unit/mL 1 sliding scale dose subcut UD 07/28/21 01/21/24 (3 mL) subcutaneous pen (Novolog FlexPen U-100 Insulin aspart) omeprazole 20 mg capsule,delayed 20 mg PO DAILYBB PRN Acid Reflux 07/28/21 01/21/24 release tramadol 50 mg tablet 50 mg PO Q8 PRN Pain, Severe 07/28/21 01/21/24 furosemide 20 mg tablet 20 mg PO 3XWK PRN weight gain 09/27/21 01/21/24 insulin glargine 100 unit/mL 30 unit subcut PM 01/09/24 01/21/24 subcutaneous solution (Lantus U-100 Insulin) cholecalciferol (vitamin D3) 50 50 mcg PO DAILY 01/21/24 01/21/24 mcg (2,000 unit) capsule (Vitamin D3) metoprolol succinate 25 mg 25 mg PO HS 01/21/24 01/21/24 tablet,extended release 24 hr Previous Rx's Medication Instructions Recorded clonazepam 0.5 mg tablet 0.5 mg PO BID PRN anxiety #60 tabs 07/22/20 apixaban 5 mg tablet (Eliquis) 5 mg PO BID #180 tabs 07/26/23 clopidogrel 75 mg tablet 75 mg PO QAM #90 tabs 07/27/23 evolocumab 140 mg/mL subcutaneous 140 mg subcut .Every 2 weeks #2 mL 11/08/23 pen injector (Sadaf Chambers) nitrofurantoin macrocrystal 50 mg 50 mg PO DAILY #90 caps 11/22/23 capsule nitroglycerin 0.4 mg sublingual 0.4 mg sublingual Q5M PRN chest 01/10/24 tablet pain #20 tabs Results & Data (ED) Vital Signs Vital Signs - 24 hr 01/21/24 09:30 01/21/24 09:30 01/21/24 09:32 Temperature 36.6 C Temperature Source Oral Pulse Rate 69 70 Pulse Rate [Apical] Respiratory Rate 18 Respiratory Effort / Characteristics Non-Labored Respiratory Depth Normal Blood Pressure 101/54 L Blood Pressure [Right Arm] Blood Pressure Mean 69 Blood Pressure Mean [Right Arm] Pulse Oximetry 95 95 Oxygen Delivery Method Room Air Room Air Sepsis Recent Fever Within 48 Hours No Sepsis New/Unexplained Change in Mental Status Yes Sepsis Action Taken by Nursing No Action Required 01/21/24 09:44 01/21/24 11:16 Temperature Temperature Source Pulse Rate Pulse Rate [Apical] 67 66 Respiratory Rate 20 20 Respiratory Effort / Characteristics Non-Labored Non-Labored Respiratory Depth Normal Normal Blood Pressure Blood Pressure [Right Arm] 101/54 L 119/60 Blood Pressure Mean Blood Pressure Mean [Right Arm] 69 79 Pulse Oximetry 95 94 Oxygen Delivery Method Room Air Room Air Sepsis Recent Fever Within 48 Hours Sepsis New/Unexplained Change in Mental Status Sepsis Action Taken by Nursing Laboratory Data 01/21/24 09:46 01/21/24 09:46 Lab Results 01/21/24 01/21/24 01/21/24 Range/Units 09:46 10:29 10:30 WBC 7.97 (4.8-10.8) K/ul RBC 3.81 L (4.20-5.40) M/uL Hgb 11.7 L (12.0-16.0) g/dl Hct 35.1 L (37.0-47.0) % MCV 92.1 (80.0-100.0) fL MCH 30.7 (25.0-34.0) pg MCHC 33.3 (32.0-36.0) g/dL RDW Std Deviation 44.2 (36.4-46.3) fL RDW Coeff of [place] 13.1 (11.5-14.5) % Plt Count 242 (130-400) K/uL MPV 11.0 (9.4-12.4) fL Immature Gran % (Auto) 0.3 % Neut % (Auto) 57.0 % Lymph % (Auto) 28.9 % [place] % (Auto) 11.0 % Eos % (Auto) 2.0 % Baso % (Auto) 0.8 % Neut # (Auto) 4.55 (1.40-6.50) K/uL Lymph # (Auto) 2.30 (1.20-3.40) K/uL [place] # (Auto) 0.88 H (0.11-0.59) K/uL Eos # (Auto) 0.16 (0.00-0.50) K/uL Baso # (Auto) 0.06 (0.00-0.20) K/uL Immature Gran # (Auto) 0.02 (0.01-0.20) K/uL Sodium 136 (136-145) mmol/L Potassium 4.0 (3.5-5.1) mmol/L Chloride 105 (98-107) mmol/L Carbon Dioxide 23 (21-32) mmol/L Anion Gap 8 (3-11) BUN 30 H (6-23) mg/dl Creatinine 1.11 (0.6-1.2) mg/dl Est Cr Clr Drug Dosing 41.7 ml/min Est GFR ( Amer) 53.9 ml/min Est GFR (Non-Af Amer) 46.5 ml/min BUN/Creatinine Ratio 27.0 H (10-20) Glucose 170 H (70-99(Fasting)) mg/dl Lactate 1.6 (0.4-2.0) mmol/L Calcium 9.4 (8.6-10.3) mg/dl Total Bilirubin 0.7 (0.2-1.0) mg/dl Direct Bilirubin 0.1 (0-0.2) mg/dl AST 21 (13-39) U/L ALT 17 (7-52) U/L Alkaline Phosphatase 41 (34-104) U/L Troponin I High Sens 47.4 H (0-14) pg/ml B-Natriuretic Peptide 1017 H (0-100) pg/ml Total Protein 7.4 (6.0-8.3) gm/dl Albumin 3.7 (3.4-5.0) gm/dl Lipase 21 (11-82) U/L Administered Medications Clonazepam (Clonazepam 0.5 Mg Tab) 0.5 mg PO BID PRN PRN Reason: anxiety Stop: 02/20/24 13:59 Last Admin: 01/21/24 14:07 Dose: 0.5 mg Documented By: LISA Discontinued Medications Aspirin (Aspirin 81 Mg Chew) 324 mg PO NOW STA Stop: 01/21/24 10:56 Last Admin: 01/21/24 11:09 Dose: 324 mg Documented By: PAPO Clonazepam (Clonazepam 0.5 Mg Tab) Confirm Administered Dose 0.5 mg PO .STK-MED ONE Stop: 01/21/24 14:06 Last Admin: 01/21/24 14:07 Dose: Not Given Documented By: LISA Furosemide (Furosemide Inj 20 Mg/2 Ml Vial) 20 mg IV ONE ONE Stop: 01/21/24 11:45 Last Admin: 01/21/24 12:24 Dose: 20 mg Documented By: LISA Heparin Sodium (Porcine) (Heparin Sod (Porcine) 1000 Unit/Ml) 1 units IV NOW ONE Stop: 01/21/24 11:12 Last Admin: 01/21/24 11:10 Dose: 4,000 units Documented By: PAPO Co-signed By: LISA Heparin Sodium/Dextrose (Heparin Iv Adult Wt-Based Low-Dose W/ Initial Bolus Protocol) 1 each IV NOW STA; Protocol Stop: 01/21/24 10:56 Last Admin: 01/21/24 11:11 Dose: 1 each Documented By: PAPO Heparin Sodium/Dextrose (Heparin Sodium/Dextrose) 25,000 units in 500 mls @ 16 mls/hr IV .Q24H TIFFANY; Protocol Stop: 02/20/24 11:14 Last Titration: 01/21/24 13:40 Dose: 0 units/hr, 0 mls/hr Documented By: LISA Co-signed By: SAEED Admin: 01/21/24 11:11 Dose: 800 units/hr, 16 mls/hr Documented By: PAPO Co-signed By: LISA Imaging Data Radiologist's Impression: Head CT 01/21/24 10:06 CT head/brain wo con CLINICAL HISTORY: unresponsive episode, ?seizure Technique: Contiguous axial CT images of the head were acquired from the base of the skull to the vertex without intravenous contrast administration. Images were viewed in brain, subdural and bone windows. Automated dose lowering techniques and/or adjustment according to patient size were utilized for this exam. Comparison: Comparison is made to CT chest 02/26/2016 Findings: The ventricles, basal cisterns, and cerebral sulci are normal. There is no acute intracranial hemorrhage or evidence of acute territorial infarction. Neither mass effect, shift of the midline structures, nor abnormal extra-axial fluid collections are shown. Imaged portions of the paranasal sinuses and mastoid air cells are clear. The orbits appear normal. There are no acute fractures of the calvaria or scalp swelling. Impression: No acute intracranial hemorrhage, no evidence of acute territorial infarction or other acute intracranial disease process. ACT 112: Negative or not required by law. Electronically signed by: Chandu Fernandez M.D. 01/21/2024 10:44 AM Discharge Plan Visit Data Chief Complaint: Weakness ED Provider: Daya Dumont Discharge Problem: Acute non-ST elevation myocardial infarction (NSTEMI), Syncope and collapse Patient Disposition: Admitted As Inpatient Discharge Instructions Interventions: ED Discharge Assessment Last Done: 01/21/24 13:59
[2024-01-21] MEDS: ASPIRIN 81 MG CHEW PO STA (11:09)
[2024-01-21] MEDS: HEPARIN SOD (PORCINE) 1000 UNIT/ML IV ONE (11:10)
[2024-01-21] MEDS: HEPARIN SODIUM/DEXTROSE 25,000 UNITS/500 ML BAG IV SCH (11:11)
[2024-01-21] MEDS: Heparin IV Adult Wt-Based Low-Dose w/ INITIAL Bolus Protocol IV STA (11:11)
--- NOTE | 2024-01-21 12:02 | History & Physical Report ---
Date of Service January 21, 2024 Assessment & Plan (1) Acute on chronic heart failure with preserved ejection fraction (HFpEF): Plan: This is an 83 y/o female with chronic diastolic heart failure, CAD s/p cardiac stent, insulin-requiring DM2, fibromyalgia, recurrent UTI, on chronic Macrobid, atrial fibrillation, on chronic AC, GERD, and other history as outlined who presented today after an unresponsive episode at home this morning. She also notes a pattern of worsening exertional chest pain, only transient improvement with nitro/rest. EKG today reviewed and compared to prior - no clear acute changes at present (chronic abnormal EKG). Initial troponin elevated in the 40s, repeat was stable. Suspect demand ischemic in the setting of acute on chronic HFpEF. Weight is up 10-15 lbs from baseline, +new orthopnea, worsening SALCIDO. - Admit to PCU - Check ECHO in view of worsening of chronic HF, +troponin, ?unstable angina - Consult cardiology for additional recommendations - IV furosemide 20 mg x 1 ordered - will monitor response to determine additional diuretic dosing, daily weights, Is and Os - Repeat labs in the AM (CBC, BMP, Mg) to monitor electrolytes with diuresis. (2) Chest pain: Plan: Clinical pattern of symptoms seems most consistent with unstable angina in view of her known history of CAD Trend troponin Repeat EKG in the AM (3) Stroke-like symptoms: Plan: Unclear etiology of symptoms but currently resolved. Initial CT head negative. - Check MRI brain - Continue chronic AC/Eliquis (4) Aortic stenosis: Plan: Moderate to severe on ECHO in October Updating ECHO this visit as discussed Caution with fluid status (5) Paroxysmal atrial fibrillation: Plan: Chronic, stable Continue beta sean, chronic AC (6) Recurrent urinary tract infection: Plan: Denies urinary symptoms at present Continue suppressive nitrofurantoin (7) Diabetes mellitus with diabetic nephropathy: Plan: Chronic, stable Continue basal insulin with Novolog sliding scale Diabetic diet BSG ACHS, A1c in the AM (8) Hypertension: Plan: Chronic, stable Continue outpatient regiment (9) Anxiety disorder: Plan: Recent increase in stress related to sister's cancer diagnosis - pt is following with psychiatry, on fluoxetine and prn Klonopin Pt feels like this is well-controlled on current regimen so will continue (10) Cardiovascular arteriosclerosis: Plan: Chronic, see #1 Plan Pt seen and reviewed with collaborating physician, Dr. Robles. Plan of care discussed and as outlined above. Please see her note for additional details. Code status: DNR/DNI DVT Prophylaxis: on chronic Eliquis - will continue Dispo: PCU Indira Brand PA-C History of Present Illness Chief Complaint: unresponsive episode Primary Care Provider: Anand Mena DO This is an 83 y/o female with chronic diastolic heart failure, CAD s/p cardiac stent, insulin-requiring DM2, fibromyalgia, recurrent UTI, on chronic Macrobid, atrial fibrillation, on chronic AC, GERD, and other history as outlined who presented today after an unresponsive episode at home this morning. History is obtained from patient and her daughter at the bedside. Pt was drinking a glass of water when her daughter turned around and noted that pt had started clutching her chest, her left arm was shaking, her face pulled to the side/drooping, and she wasn't focusing or answering question. Never seemed to fully lose consciousness but pt has no memory of the event. Loss of awareness seemed to last 30-60 seconds. No urinary or bowel incontinence. Hx of childhood "convulsions" but never diagnosed with a seizure disorder. Pt has noticed chest pains for the last several months but worse over the last two weeks, especially with exertion. She was given nitroglycerin by her home management supervisor, which she has been taking, and she states helps but only transiently. The pain will recur, even with rest, several minutes after taking the nitro. She describes pain as being in the left breast/left lower ribs - may radiate to her left arm and/or neck. This does not feel similar to when she required her prior cardiac stent. She also notes some residual soreness in the chest, but thinks that this may be more related to known fibromyalgia, which also causes pain in her back and shoulder. The chest pain is not reproducible with palpation. She has not noted any lower extremity edema but her weight is up about 10 lbs from baseline. Her daughter notes giving pt a dose of the prn furosemide last week, which helped transiently. She has had some mild nausea but no vomiting. Denies fevers, sweats. changes in bowels or bladder function. She is on chronic Macrobid for UTI - last UTI was Jul 2021. She has chronic hematuria, which is unchanged. Allergies Allergy/AdvReac Type Severity Reaction Status Date / Time amoxicillin Allergy Severe Shortness Verified 01/16/24 13:20 of breath Penicillins Allergy Severe Shortness Verified 01/16/24 13:20 of breath shellfish derived Allergy Severe syncope Verified 01/16/24 13:20 sulfamethoxazole Allergy Severe Anaphylaxis Verified 01/16/24 13:20 [From Bactrim] trimethoprim [From Bactrim] Allergy Severe Anaphylaxis Verified 01/16/24 13:20 Pmqjmma-ENH-IbU Reductase Allergy Intermediate Body Pain Verified 01/16/24 13:20 Inhibitor [Djbenis-Jgj-Upv Reductase Inhibitor] codeine Allergy Unknown SOB,CHANGE Verified 01/16/24 13:20 MENTAL STATUS - TAKES VICODIN AT HOME morphine Allergy Unknown FAMILY Verified 01/16/24 13:20 REACTION /FATHER AND DAUGHTER metformin [From Glucophage] AdvReac Intermediate Diarrhea Verified 01/16/24 13:20 Home Medications Medication Instructions Recorded Confirmed Type clonazepam 0.5 mg tablet 0.5 mg PO BID PRN anxiety #60 tabs 07/22/20 01/21/24 Rx insulin aspart U-100 100 unit/mL 1 sliding scale dose subcut UD 07/28/21 01/21/24 History (3 mL) subcutaneous pen (Novolog FlexPen U-100 Insulin aspart) omeprazole 20 mg capsule,delayed 20 mg PO DAILYBB PRN Acid Reflux 07/28/21 01/21/24 History release tramadol 50 mg tablet 50 mg PO Q8 PRN Pain, Severe 07/28/21 01/21/24 History furosemide 20 mg tablet 20 mg PO 3XWK PRN weight gain 09/27/21 01/21/24 History apixaban 5 mg tablet (Eliquis) 5 mg PO BID #180 tabs 07/26/23 01/21/24 Rx clopidogrel 75 mg tablet 75 mg PO QAM #90 tabs 07/27/23 01/21/24 Rx evolocumab 140 mg/mL subcutaneous 140 mg subcut .Every 2 weeks #2 mL 11/08/23 01/21/24 Rx pen injector (Sadaf Chambers) nitrofurantoin macrocrystal 50 mg 50 mg PO DAILY #90 caps 11/22/23 01/21/24 Rx capsule insulin glargine 100 unit/mL 30 unit subcut PM 01/09/24 01/21/24 History subcutaneous solution (Lantus U-100 Insulin) nitroglycerin 0.4 mg sublingual 0.4 mg sublingual Q5M PRN chest 01/10/24 01/21/24 Rx tablet pain #20 tabs cholecalciferol (vitamin D3) 50 50 mcg PO DAILY 01/21/24 01/21/24 History mcg (2,000 unit) capsule (Vitamin D3) metoprolol succinate 25 mg 25 mg PO HS 01/21/24 01/21/24 History tablet,extended release 24 hr Past Med/Surg History Problem List (Updated 01/21/24 @ 16:53 by Terence Cohen MD) Unresponsiveness Mitral regurgitation Coronary artery disease Syncope and collapse (Acute) Acute non-ST elevation myocardial infarction (NSTEMI) (Acute) Stroke-like symptoms Chest pain Acute on chronic heart failure with preserved ejection fraction (HFpEF) Aortic stenosis Diastolic CHF Anticoagulant long-term use Paroxysmal atrial fibrillation Chest pain Recurrent urinary tract infection Hearing loss Obesity (Chronic) Irritable bowel syndrome (Chronic) Hypercholesterolemia (Chronic) Gastro-esophageal reflux (Chronic) Fibromyalgia (Chronic) Diabetic peripheral neuropathy (Chronic) Diabetes type 2, uncontrolled (Chronic) Diabetes mellitus with diabetic nephropathy (Chronic) Depression (Chronic) Cardiovascular arteriosclerosis (Chronic) Anxiety disorder (Chronic) Heart disease (Chronic) Hypertension (Chronic) Medical History Nephrolithiasis Prolapse of female pelvic organs Mixed incontinence Pelvic floor dysfunction Gross hematuria Urinary tract infection due to Klebsiella species Vitamin D deficiency Surgical History S/P knee surgery S/P cataract surgery History of back surgery Family History Father Prostate cancer Mother Hypertension Depression Diabetes Unknown Cancer Denies family history of Ovarian cancer Myocardial infarction Breast cancer Colorectal cancer Social History Smoking Status: Former smoker Tobacco Type: Cigarettes Age Started Using Tobacco: 19; Age Quit Using Tobacco: 62; Cigarettes Per Day: 1-2 a day if that; Second Hand Exposure: Yes; Do You Dip or Chew Tobacco: No; Hx Alcohol Use: No Hx Substance Use: No Preferred Language: Yoruba Communication Ability: Effective Visual Impairment: No Limitations Hearing Ability: Normal 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: No Beliefs That Will Affect Care: None marital status: Current Living Situation: Spouse and Family Current Living Situation Comment: Pt resides with spouse, spouse has hx of 4 strokes, and daughter current occupational status: retired How many Children do You have: 3 Feels Safe at Home: Yes Childhood Exposure to Second-Hand Smoke: Yes Diet: other and regular Diet Comment: keto Dental Care, Regularly: Yes Physical Activity Frequency: Does not Exercise Seatbelt Use: sometimes Sunscreen Use: Yes Assistive Devices: Cane Review of Systems Review of Systems: All systems reviewed & are unremarkable except as noted in HPI & below Constitutional: no fever, no sweats and no anorexia Eyes: no diplopia Ear, Nose, Mouth, Throat: no nasal congestion and no sore throat Respiratory: + dyspnea on exertion; no cough Cardiovascular: as per Subjective / HPI, + chest pain with activity and + orthopnea Gastrointestinal: no abdominal pain, no nausea and no vomiting Genitourinary: + hematuria (chronic); no dysuria Musculoskeletal: + back pain and + myalgia Integumentary: no rash Neurologic: as per Subjective / HPI Psychiatric: + anxiety Physical Exam Physical Exam: Please see physician note for details of the physical exam. Results & Data Results & Data Vital Signs (Past 12 Hours) Vital Signs Temp Pulse Pulse Resp BP BP Pulse Ox 01/21/24 11:16 66 20 119/60 94 01/21/24 09:44 67 20 101/54 L 95 01/21/24 09:32 70 01/21/24 09:30 95 01/21/24 09:30 36.6 C 69 18 101/54 L 95 O2 Del Method 01/21/24 11:16 Room Air 01/21/24 09:44 Room Air 01/21/24 09:32 01/21/24 09:30 Room Air 01/21/24 09:30 Room Air Laboratory Results Lab Results 01/21/24 01/21/24 01/21/24 Range/Units 09:46 10:29 10:30 WBC 7.97 (4.8-10.8) K/ul RBC 3.81 L (4.20-5.40) M/uL Hgb 11.7 L (12.0-16.0) g/dl Hct 35.1 L (37.0-47.0) % MCV 92.1 (80.0-100.0) fL MCH 30.7 (25.0-34.0) pg MCHC 33.3 (32.0-36.0) g/dL RDW Std Deviation 44.2 (36.4-46.3) fL RDW Coeff of [place] 13.1 (11.5-14.5) % Plt Count 242 (130-400) K/uL MPV 11.0 (9.4-12.4) fL Immature Gran % (Auto) 0.3 % Neut % (Auto) 57.0 % Lymph % (Auto) 28.9 % [place] % (Auto) 11.0 % Eos % (Auto) 2.0 % Baso % (Auto) 0.8 % Neut # (Auto) 4.55 (1.40-6.50) K/uL Lymph # (Auto) 2.30 (1.20-3.40) K/uL [place] # (Auto) 0.88 H (0.11-0.59) K/uL Eos # (Auto) 0.16 (0.00-0.50) K/uL Baso # (Auto) 0.06 (0.00-0.20) K/uL Immature Gran # (Auto) 0.02 (0.01-0.20) K/uL Sodium 136 (136-145) mmol/L Potassium 4.0 (3.5-5.1) mmol/L Chloride 105 (98-107) mmol/L Carbon Dioxide 23 (21-32) mmol/L Anion Gap 8 (3-11) BUN 30 H (6-23) mg/dl Creatinine 1.11 (0.6-1.2) mg/dl Est Cr Clr Drug Dosing 41.7 ml/min Est GFR ( Amer) 53.9 ml/min Est GFR (Non-Af Amer) 46.5 ml/min BUN/Creatinine Ratio 27.0 H (10-20) Glucose 170 H (70-99(Fasting)) mg/dl Lactate 1.6 (0.4-2.0) mmol/L Calcium 9.4 (8.6-10.3) mg/dl Total Bilirubin 0.7 (0.2-1.0) mg/dl Direct Bilirubin 0.1 (0-0.2) mg/dl AST 21 (13-39) U/L ALT 17 (7-52) U/L Alkaline Phosphatase 41 (34-104) U/L Troponin I High Sens 47.4 H (0-14) pg/ml B-Natriuretic Peptide 1017 H (0-100) pg/ml Total Protein 7.4 (6.0-8.3) gm/dl Albumin 3.7 (3.4-5.0) gm/dl Lipase 21 (11-82) U/L Diagnostic Findings Head CT 01/21/24 10:06 CT head/brain wo con CLINICAL HISTORY: unresponsive episode, ?seizure Technique: Contiguous axial CT images of the head were acquired from the base of the skull to the vertex without intravenous contrast administration. Images were viewed in brain, subdural and bone windows. Automated dose lowering techniques and/or adjustment according to patient size were utilized for this exam. Comparison: Comparison is made to CT chest 02/26/2016 Findings: The ventricles, basal cisterns, and cerebral sulci are normal. There is no acute intracranial hemorrhage or evidence of acute territorial infarction. Neither mass effect, shift of the midline structures, nor abnormal extra-axial fluid collections are shown. Imaged portions of the paranasal sinuses and mastoid air cells are clear. The orbits appear normal. There are no acute fractures of the calvaria or scalp swelling. Impression: No acute intracranial hemorrhage, no evidence of acute territorial infarction or other acute intracranial disease process. ACT 112: Negative or not required by law. Electronically signed by: Chandu Fernandez M.D. 01/21/2024 10:44 AM Supervising Physician Co-Signing Physician Notes I have seen and discussed the case with the collaborating advanced practitioner. I agree with the above H&P. I have reviewed and confirmed the patients medical history, the findings on physical examination, and the patients diagnosis and treatment plan with Sunday KILGORE and agree with the information documented. In short, Ms. Ryder is an 83 year old woman with history of DMTII, paroxysmal atrial fibrillation, HFpEF (10/2023 55-60% LVH, moderate to severe aortic stenosis) , CAD s/p stent, HLD, recurrent UTI on suppressive therapy, CKDIII, multivessel CAD s/p TERRI mLCx and other medical conditions admitted for evaluation of chest pain,worsening orthopnea, and episode of confusion. Patient reports SALCIDO, chest pain on exertion and occasionally at rest (different from her Fibromyalgia), weight gain. She states she has been 190 in the last couple of weeks but noted abdominal fullness in last few days. In last 2-3 weeks, she has gone from one thin pillow to sleeping in a recliner. Today, patient with episode of left facial droop, but upward motion of left arm; there was brief confusion which resolved in 30seconds to a minute. No incontinence noted. No history of stroke. Reports pain not active at time of visit. intermittent nausea, no vomiting or diaphoresis, occasional radiation. GENERAL APPEARANCE: AxOx4, pleasant woman, no acute distress. HEENT: NC, AT. MMM. EOMI, clear conjunctiva, oropharynx clear. NECK: Supple without lymphadenopathy. No stiffness or restricted ROM. HEART: Normal rate and regular rhythm, ?NUVIA, JVD+ LUNGS: CTAB ABDOMEN: Soft, but full abdomen BACK: No CVAT, no obvious deformity. EXTREMITIES: Without cyanosis, clubbing or edema. NEUROLOGICAL: Grossly nonfocal. Alert and oriented, moving all 4 extremities. CN not formally tested but appear grossly intact. Skin: Warm and dry without any rash. #Acute on chronic heart failure with preserved EF #Chest pain c/f Unstable angina #Multi-vessel severe CAD s/p TERRI Lcx 2020 #Abnormal resting EKG #Severe Aortic Stenosis BNP 1017, weight gain, orthopnea s/p IV lasix 20 now TWI noted consistent with prior EKG and known RCA disease ECHO I/O HH diet, FR 2L daily weights Cards consult Continue metoprolol Continue plavix #Elevated troponin likely demand iso HF exacerbation Trend Trop, seems plateaued iso known CAD Monitor on tele #Stroke like episode unclear if vasogenic, perhaps iso of aortic stenosis v stress; definite risk for TIA CT clear, no chronic infarct noted, MRI ordered rest of plan as above I spent a total of 35 minutes coordinating, documenting, and providing care for this patient excluding time spent in the performance of separately billed services. All of the aforementioned completed outside of collaborating with the assigned advanced practitioner for a full treatment plan. 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
[2024-01-21] MEDS: FUROSEMIDE INJ 20 MG/2 ML VIAL IV ONE (12:24)
[2024-01-21] MEDS ORDERED: CARBOHYDRATES FOR HYPOGLYCEMIA PO PRN (12:35)
[2024-01-21] MEDS ORDERED: DEXTROSE 50% 50 ML SYRINGE IV PRN (12:35)
[2024-01-21] MEDS ORDERED: GLUCAGON FOR INJ 1 MG VIAL SQ PRN (12:35)
[2024-01-21] MEDS ORDERED: GLUCOSE 40% GEL 15 GM TUBE PO PRN (12:35)
[2024-01-21] MEDS ORDERED: GLUCOSE 10 TAB/TUBE PO PRN (12:35)
[2024-01-21] MEDS: clonazePAM 0.5 MG TAB PO PRN (14:07)
[2024-01-21] MEDS: clonazePAM 0.5 MG TAB PO ONE (14:07)
[2024-01-21 14:34] LABS: Appearance Urine Clear (Clear); Bacteria Urine Automated None Seen (None Seen); Bilirubin Urine Negative (Negative); Blood Urine 3+ (Negative); Cast Urine Automated 0-2 /lpf (0-2); Color Urine Yellow; Epithelial Cell Urine Auto 0-2 /hpf (0-2); Glucose Urine UA Negative (Negative); Ketones Urine Negative (Negative); Leukocyte Esterase Urine 3+ (Negative); Nitrite Urine Negative (Negative); Protein Urine Negative (Negative); Specific Gravity Urine 1.011 (1.000-1.030); Urobilinogen Urine Negative (Negative); pH Urine 5.5 (4.5-7.5)
--- NOTE | 2024-01-21 15:00 | XCELERA ---
[id number]
--- NOTE | 2024-01-21 15:30 | Magnetic Resonance Report ---
MRI OF THE BRAIN WITHOUT CONTRAST CLINICAL HISTORY: Unresponsive episode. COMPARISON STUDY: Head CT performed earlier today. TECHNIQUE: Utilizing a 1.5 Myriam magnet and dedicated coil, multiplanar, multiecho imaging of the bra in was performed without IV contrast. FINDINGS: There are no foci of restricted diffusion to suggest acute infarct. No acute intracranial h emorrhage, midline shift or mass effect is present. Ventricular system is unremarkable. Basal cistern s are patent. Flow-voids for the major intracranial vessels are present. No intracranial mass is iden tified on unenhanced exam. Scattered small white matter T2 hyperintense foci suggest mild small vesse l disease. There is mild atrophy. Calvarial signal is normal. There is no evidence for sinusitis. The re is no mastoid fluid. IMPRESSION: No acute intracranial findings. ACT 112: Negative or not required by law. Electronically signed by: Sushil Monk M.D. 01/21/2024 3:28 PM
--- NOTE | 2024-01-21 16:47 | Cardiology Consultation ---
Date of Consultation January 21, 2024 Assessment & Plan (1) Chest pain: (2) Acute on chronic heart failure with preserved ejection fraction (HFpEF): (3) Aortic stenosis: (4) Paroxysmal atrial fibrillation: (5) Coronary artery disease: (6) Mitral regurgitation: (7) Unresponsiveness: Plan 1. Unresponsive episode: Unclear etiology. I do not believe this is related to her cardiac condition. Patient was seated at the time. She was not responsive but not appear to lose postural tone. Also some associated repetitive movements of the arm all of which would be inconsistent with a cardiac etiology. 2. Decompensated heart failure with preserved ejection fraction: She appears to have developed an element of pulmonary vascular congestion based on her history. Of intravenous Lasix. Currently lying flat without significant symptom. No evidence of peripheral edema. Lungs were clear on examination. I think she could resume her oral Lasix tomorrow. She does have a history of urinary tract infections, but still appears to be a good candidate for an SG LT 2 inhibitor. 3. Aortic stenosis: This appears to be severe on her current echocardiogram. Transaortic velocities approaching 4 m/sec. The dimensionless index was quite high. It is very possible that her aortic stenosis is contributing to some of her symptoms, most likely the dyspnea and associated heart failure. We discussed options for addressing the valve including valve replacement. I think it is worth obtaining coronary angiogram and referring her to a tertiary center for evaluation. 4. Chest pain: Very atypical. Not necessarily responsive to nitroglycerin. Possibly related to her aortic valve disease. However, she also has a history of coronary disease. Her intention is to evaluate the coronaries in anticipation of a valve replacement. Will plan a cardiac catheterization or Sunday and hold her Eliquis tomorrow. 5. Mitral regurgitation: Moderate. 6. Coronary disease: Status post PCI to the circumflex system. Known residual disease involving the right coronary artery. Again, we will re-evaluate in anticipation of a valve replacement. History of Present Illness Reason for Consultation: Chest pain, elevated troponin, shortness of breath Requesting Physician: Sunday Attending Physician: Loretta Robles MD History of Present Illness The patient is an 83-year-old woman with a history of coronary artery disease status post percutaneous intervention to the circumflex in 2020, paroxysmal atrial fibrillation, aortic stenosis and history of heart failure with preserved ejection fraction. She was noted by family members today to have a period of unresponsiveness. According to the patient she had gotten up to the kitchen to get a glass of cold water. She sat down and had a drink of cold water and then remembers very little until she regained awareness apparently a few minutes later. Her daughter and were present. They stated that she begin to move her arm in a rhythmic fashion. Her eyes were open and she did not lose postural tone, but was unresponsive for a few minutes. Afterwards she appeared to have all of her faculties and there were no focal neurologic deficits. She was transported to the hospital for evaluation. Patient states that for approximately a month and a half she has not been feeling well. According to her daughter she has been significantly worse over the past few days. This apparently refers to worsening dyspnea and lassitude. She is able to do some routine housework and walk around her residence. She occasionally has some chest pains that appear to be exertional. However, there are atypical in that they are fairly focal and fleeting in nature. She was recently charted on p.r.n. nitroglycerin which she has taken repeatedly at home. She cannot say definitively that this improved her symptoms. She has had some worsening dyspnea recently. This also appears to involve some orthopnea and paroxysmal nocturnal dyspnea. She has not been weighing herself on a daily basis. Allergies Allergy/AdvReac Type Severity Reaction Status Date / Time amoxicillin Allergy Severe Shortness Verified 01/16/24 13:20 of breath Penicillins Allergy Severe Shortness Verified 01/16/24 13:20 of breath shellfish derived Allergy Severe syncope Verified 01/16/24 13:20 sulfamethoxazole Allergy Severe Anaphylaxis Verified 01/16/24 13:20 [From Bactrim] trimethoprim [From Bactrim] Allergy Severe Anaphylaxis Verified 01/16/24 13:20 Reloouu-TTJ-BxP Reductase Allergy Intermediate Body Pain Verified 01/16/24 13:20 Inhibitor [Ccpceam-Nnm-Drp Reductase Inhibitor] codeine Allergy Unknown SOB,CHANGE Verified 01/16/24 13:20 MENTAL STATUS - TAKES VICODIN AT HOME morphine Allergy Unknown FAMILY Verified 01/16/24 13:20 REACTION /FATHER AND DAUGHTER metformin [From Glucophage] AdvReac Intermediate Diarrhea Verified 01/16/24 13:20 Home Medications Medication Instructions Recorded Confirmed Type clonazepam 0.5 mg tablet 0.5 mg PO BID PRN anxiety #60 tabs 07/22/20 01/21/24 Rx insulin aspart U-100 100 unit/mL 1 sliding scale dose subcut UD 07/28/21 01/21/24 History (3 mL) subcutaneous pen (Novolog FlexPen U-100 Insulin aspart) omeprazole 20 mg capsule,delayed 20 mg PO DAILYBB PRN Acid Reflux 07/28/21 01/21/24 History release tramadol 50 mg tablet 50 mg PO Q8 PRN Pain, Severe 07/28/21 01/21/24 History furosemide 20 mg tablet 20 mg PO 3XWK PRN weight gain 09/27/21 01/21/24 History apixaban 5 mg tablet (Eliquis) 5 mg PO BID #180 tabs 07/26/23 01/21/24 Rx clopidogrel 75 mg tablet 75 mg PO QAM #90 tabs 07/27/23 01/21/24 Rx evolocumab 140 mg/mL subcutaneous 140 mg subcut .Every 2 weeks #2 mL 11/08/23 01/21/24 Rx pen injector (Sadaf Chambers) nitrofurantoin macrocrystal 50 mg 50 mg PO DAILY #90 caps 11/22/23 01/21/24 Rx capsule insulin glargine 100 unit/mL 30 unit subcut PM 01/09/24 01/21/24 History subcutaneous solution (Lantus U-100 Insulin) nitroglycerin 0.4 mg sublingual 0.4 mg sublingual Q5M PRN chest 01/10/24 01/21/24 Rx tablet pain #20 tabs cholecalciferol (vitamin D3) 50 50 mcg PO DAILY 01/21/24 01/21/24 History mcg (2,000 unit) capsule (Vitamin D3) metoprolol succinate 25 mg 25 mg PO HS 01/21/24 01/21/24 History tablet,extended release 24 hr Patient History Medical History Nephrolithiasis Prolapse of female pelvic organs Mixed incontinence Pelvic floor dysfunction Gross hematuria Urinary tract infection due to Klebsiella species Vitamin D deficiency Surgical History S/P knee surgery S/P cataract surgery History of back surgery Family History Father Prostate cancer Mother Hypertension Depression Diabetes Unknown Cancer Denies family history of Ovarian cancer Myocardial infarction Breast cancer Colorectal cancer Social History Smoking Status: Former smoker Tobacco Type: Cigarettes Age Started Using Tobacco: 19; Age Quit Using Tobacco: 62; Cigarettes Per Day: 1-2 a day if that; Second Hand Exposure: Yes; Do You Dip or Chew Tobacco: No; Hx Alcohol Use: No Hx Substance Use: No Preferred Language: [place] Communication Ability: Effective Visual Impairment: No Limitations Hearing Ability: Normal Area Loss Prevention Manager Required: No Beliefs That Will Affect Care: None marital status: Current Living Situation: Spouse and Family Current Living Situation Comment: Pt resides with spouse, spouse has hx of 4 strokes, and daughter current occupational status: retired How many Children do You have: 3 Feels Safe at Home: Yes Childhood Exposure to Second-Hand Smoke: Yes Diet: other and regular Diet Comment: keto Dental Care, Regularly: Yes Physical Activity Frequency: Does not Exercise Seatbelt Use: sometimes Sunscreen Use: Yes Assistive Devices: Cane Review of Systems Review of Systems: Per HPI. Some focal chest pain in the left pectoral area with palpation. Some element of anorexia recently Physical Exam Physical Exam: She is alert and oriented x3. Mood affect appear normal. She answered all questions appropriately. Lying flat in bed. HEENT: Sclerae are anicteric. Pupils are equal and reactive to light and accommodation. Extraocular movements were intact. Neuro: Cranial nerves intact Lungs: Lungs are clear to auscultation bilaterally. There are no rales wheezes or rhonchi. She has normal respiratory effort without use of accessory muscles. There is normal pulmonary excursion. Cardiac: The rhythm was regular. S1 and S2 were normal. There are no murmurs on examination. The PMI was not markedly displaced on palpation. Extremities: Patient has bilateral radial pulses that are equal in intensity. There is no evidence cyanosis or clubbing. There was no evidence of significant peripheral edema bilaterally. Skin: There are no rashes noted on examination today. Results & Data Vital Signs (Past 12 Hours) Vital Signs Temp Pulse Pulse Resp BP BP Pulse Ox 01/21/24 14:02 01/21/24 14:02 64 20 123/64 93 01/21/24 13:34 67 16 120/62 93 01/21/24 12:25 65 20 127/74 95 01/21/24 11:16 66 20 119/60 94 01/21/24 09:44 67 20 101/54 L 95 01/21/24 09:32 70 01/21/24 09:30 95 01/21/24 09:30 36.6 C 69 18 101/54 L 95 Pulse Ox O2 Del Method O2 Del Method 01/21/24 14:02 93 Room Air 01/21/24 14:02 Room Air 01/21/24 13:34 Room Air 01/21/24 12:25 Room Air 01/21/24 11:16 Room Air 01/21/24 09:44 Room Air 01/21/24 09:32 01/21/24 09:30 Room Air 01/21/24 09:30 Room Air Laboratory Results Abnormal Lab Results 01/21/24 01/21/24 01/21/24 09:46 10:29 10:30 WBC 7.97 RBC 3.81 L Hgb 11.7 L Hct 35.1 L MCV 92.1 MCH 30.7 MCHC 33.3 RDW Std Deviation 44.2 RDW Coeff of Adair 13.1 Plt Count 242 MPV 11.0 Immature Gran % (Auto) 0.3 Neut % (Auto) 57.0 Lymph % (Auto) 28.9 [place] % (Auto) 11.0 Eos % (Auto) 2.0 Baso % (Auto) 0.8 Neut # (Auto) 4.55 Lymph # (Auto) 2.30 [place] # (Auto) 0.88 H Eos # (Auto) 0.16 Baso # (Auto) 0.06 Immature Gran # (Auto) 0.02 Sodium 136 Potassium 4.0 Chloride 105 Carbon Dioxide 23 Anion Gap 8 BUN 30 H Creatinine 1.11 Est Cr Clr Drug Dosing 41.7 Est GFR ( Amer) 53.9 Est GFR (Non-Af Amer) 46.5 BUN/Creatinine Ratio 27.0 H Glucose 170 H POC Glucose Lactate 1.6 Calcium 9.4 Total Bilirubin 0.7 Direct Bilirubin 0.1 AST 21 ALT 17 Alkaline Phosphatase 41 Troponin I High Sens 47.4 H B-Natriuretic Peptide 1017 H Total Protein 7.4 Albumin 3.7 Lipase 21 Urine Color Urine Appearance Urine pH Ur Specific [place] Urine Protein Urine Glucose (UA) Urine Ketones Urine Blood Urine Nitrite Urine Bilirubin Urine Urobilinogen Ur Leukocyte Esterase Urine WBC (Auto) Urine RBC (Auto) U Hyaline Cast (Auto) U Epithel Cells (Auto) Urine Bacteria (Auto) 01/21/24 01/21/24 01/21/24 12:22 13:15 14:11 WBC RBC Hgb Hct MCV MCH MCHC RDW Std Deviation RDW Coeff of [place]air Plt Count MPV Immature Gran % (Auto) Neut % (Auto) Lymph % (Auto) [place] % (Auto) Eos % (Auto) Baso % (Auto) Neut # (Auto) Lymph # (Auto) [place] # (Auto) Eos # (Auto) Baso # (Auto) Immature Gran # (Auto) Sodium Potassium Chloride Carbon Dioxide Anion Gap BUN Creatinine Est Cr Clr Drug Dosing Est GFR ( Amer) Est GFR (Non-Af Amer) BUN/Creatinine Ratio Glucose POC Glucose 161 H Lactate Calcium Total Bilirubin Direct Bilirubin AST ALT Alkaline Phosphatase Troponin I High Sens 47.2 H B-Natriuretic Peptide Total Protein Albumin Lipase Urine Color Yellow Urine Appearance Clear Urine pH 5.5 Ur Specific [place] 1.011 Urine Protein Negative Urine Glucose (UA) Negative Urine Ketones Negative Urine Blood 3+ H Urine Nitrite Negative Urine Bilirubin Negative Urine Urobilinogen Negative Ur Leukocyte Esterase 3+ H Urine WBC (Auto) 11-20 H Urine RBC (Auto) 3-5 H U Hyaline Cast (Auto) 0-2 U Epithel Cells (Auto) 0-2 Urine Bacteria (Auto) None Seen Diagnostic Findings Echocardiogram performed 01/21/2024: Normal LV systolic function with ejection fraction of 60 65%. Mild LVH. Mild left atrial dilation. Mild aortic regurgitation. Severe aortic stenosis. Moderate mitral regurgitation. Elevated right ventricular pressures estimated at 40-50 mm of mercury And head CT did not demonstrate any acute abnormalities. ECG Additional Comments: EKG demonstrates normal sinus rhythm with diffuse ST segment depressions. Consistent with old EKGs. PG Care Time/CCT Total # of Minutes Spent Total Time Spent with Patient: Total time spent is greater than 50% in coordination of care (as documented) at patient's floor/unit and/or counseling patient: Coding Level of Care Code 01463 INT INP/OBS CARE 3/75MIN Diagnoses Unstable angina pectoris I20.0 Chest pain type: chest pain due to myocardial ischemia Ischemic chest pain type: unstable angina pectoris Acute on chronic heart failure with preserved ejection fraction (HFpEF) I50.33 Aortic valve stenosis, etiology of cardiac valve disease unspecified I35.0 Cardiac valve disease etiology: etiology unspecified Paroxysmal atrial fibrillation I48.0 Coronary artery disease I25.10 Mitral regurgitation I34.0 Unresponsiveness R41.89 (1) Chest pain Chest pain type: chest pain due to myocardial ischemia Ischemic chest pain type: unstable angina pectoris Qualified Code(s): I20.0 - Unstable angina (3) Aortic stenosis Cardiac valve disease etiology: etiology unspecified Qualified Code(s): I35.0 - Nonrheumatic aortic (valve) stenosis
--- NOTE | 2024-01-21 17:40 | Electrocardiogram Report ---
Test Reason : Blood Pressure : / mmHG Vent. Rate : 069 BPM Atrial Rate : 069 BPM P-R Int : 198 ms QRS Dur : 112 ms QT Int : 460 ms P-R-T Axes : 060 089 237 degrees QTc Int : 492 ms Normal sinus rhythm Incomplete right bundle branch block Marked ST abnormality, possible lateral subendocardial injury Prolonged QT Abnormal ECG When compared with ECG of 01-AUG-2021 18:13, Incomplete right bundle branch block is now Present Confirmed by Terence Cohen ([id number]) on 01/21/2024 5:40:13 PM Referred By: REFERRED SELF Confirmed By:Shad Cohen
[2024-01-21] MEDS: INSULIN ASPART PER UNIT CHARGE SC SCH (19:33)
[2024-01-21] MEDS: LANTUS PER UNIT CHARGE SQ SCH (21:31)
[2024-01-21] MEDS: METOPROLOL SUCC 25MG EXT REL TAB PO SCH (21:32)
[2024-01-21] MEDS: APIXABAN 5 MG TABLET PO SCH (21:33)
[2024-01-22 08:33] LABS: Basophils # (auto) 0.05 K/uL (0.00-0.20); Basophils % (auto) 0.6 %; Eosinophils # (auto) 0.25 K/uL (0.00-0.50); Eosinophils % (auto) 3.1 %; Hematocrit (blood only) 36.1 % (37.0-47.0); Immature Granulocytes # (auto) 0.04 K/uL (0.01-0.20); Immature Granulocytes % (auto) 0.5 %; Lymphocytes # (auto) 2.04 K/uL (1.20-3.40); Lymphocytes % (auto) 25.4 %; Mean Corpuscular Hemoglobin 30.6 pg (25.0-34.0); Mean Corpuscular Hgb Conc 33.2 g/dL (32.0-36.0); Mean Corpuscular Volume 92.1 fL (80.0-100.0); Mean Platelet Volume 10.7 fL (9.4-12.4); Monocytes % (auto) 11.2 %; Neutrophils # (auto) 4.74 K/uL (1.40-6.50); Neutrophils % (auto) 59.2 %; Platelet Count 244 K/uL (130-400); RDW Coefficient of Variation 13.2 % (11.5-14.5); RDW Standard Deviation 44.4 fL (36.4-46.3); Red Blood Count 3.92 M/uL (4.20-5.40); White Blood Count 8.02 K/ul (4.8-10.8)
--- NOTE | 2024-01-22 08:43 | XRay Report ---
XR chest 1V portable HISTORY: 83 years-old Female rule out pulmonary edema acute shortness of breath COMPARISON: 07/28/2021 TECHNIQUE: AP view the chest FINDINGS: Cardiac silhouette is enlarged. Mild chronic interstitial coarsening. No pneumothorax, pleural effusi on, airspace consolidation or acute pulmonary edema. Degenerative changes of the shoulders and spine. IMPRESSION: Cardiomegaly with mild chronic interstitial coarsening. ACT 112: Negative or not required by law. The above report was generated using voice recognition software. It may contain grammatical, syntax o r spelling errors. Electronically signed by: Mitchell Talley M.D. 01/22/2024 8:41 AM
[2024-01-22] MEDS: CLOPIDOGREL BISULFATE 75 MG TAB PO SCH (08:52)
[2024-01-22 08:53] LABS: Estimated Average Glucose 166 mg/dl; Hemoglobin A1C 7.4 % (4.5-5.6)
[2024-01-22] MEDS: APIXABAN 5 MG TABLET PO SCH (08:53)
[2024-01-22] MEDS: CHOLECALCIFEROL 25 MCG (1000 UNITS) TAB PO SCH (08:54)
[2024-01-22] MEDS: ACETAMINOPHEN 325 MG TAB PO PRN (08:54)
[2024-01-22 08:55] LABS: BUN Creatinine Ratio 27.9 (10-20); Calcium 9.6 mg/dl (8.6-10.3); Creatinine Clr Calc Pharmacy 40.7 ml/min; Est GFR (African American) 53.9 ml/min; Est GFR (Non-African American) 46.5 ml/min; Magnesium 1.8 mg/dl (1.7-2.4); Potassium 4.4 mmol/L (3.5-5.1)
--- NOTE | 2024-01-22 10:34 | Cardiology Progress Note ---
Date of Service January 22, 2024 Assessment & Plan (1) Chest pain: (2) Acute on chronic heart failure with preserved ejection fraction (HFpEF): (3) Aortic stenosis: (4) Paroxysmal atrial fibrillation: (5) Coronary artery disease: (6) Mitral regurgitation: (7) Unresponsiveness: Plan 1. Unresponsive episode: Unclear etiology. No recurrence 2. Decompensated heart failure with preserved ejection fraction: Much improved. We have resumed her usual outpatient regimen of diuretic. 3. Aortic stenosis: This appears to be severe on her current echocardiogram. Planning cardiac catheterization tomorrow in anticipation of referral for TAVR evaluation 4. Chest pain: Very atypical. Coronary angiography will be performed tomorrow primarily in preparation of possible valve replacement. 5. Mitral regurgitation: Moderate. 6. Coronary disease: Status post PCI to the circumflex system. Known residual disease involving the right coronary artery. Again, we will re-evaluate in anticipation of a valve replacement. Admission and Anticipated Discharge Date Admission Date: January 21, 2024 Subjective This morning patient claimed he feeling well. Breathing has improved and is at baseline. Some ambulation to the bathroom without limiting dyspnea or chest pain. No palpitation. No dizziness or lightheadedness. Review of Systems Review of Systems: Per HPI Physical Exam Physical Exam: She is alert and oriented x3. Mood affect appear normal. She answered all questions appropriately. Lying flat in bed. HEENT: Sclerae are anicteric. Pupils are equal and reactive to light and accommodation. Extraocular movements were intact. Neuro: Cranial nerves intact Lungs: Lungs are clear to auscultation bilaterally. There are no rales wheezes or rhonchi. She has normal respiratory effort without use of accessory muscles. There is normal pulmonary excursion. Cardiac: The rhythm was regular. S1 and S2 were normal. Very soft crescendo systolic murmur The PMI was not markedly displaced on palpation. Extremities: Patient has bilateral radial pulses that are equal in intensity. There is no evidence cyanosis or clubbing. There was no evidence of significant peripheral edema bilaterally. Skin: There are no rashes noted on examination today. Results & Data Vital Signs (Past 12 Hours) Vital Signs Temp Pulse Resp BP Pulse Ox O2 Del Method 01/22/24 07:26 36.6 C 53 L 19 107/56 L 91 Room Air 01/22/24 03:01 36.5 C 63 18 122/69 94 Room Air 01/21/24 23:25 36.6 C 66 16 111/63 92 Room Air Laboratory Results Abnormal Lab Results 01/21/24 01/21/24 01/21/24 09:46 10:29 10:30 WBC RBC Hgb Hct MCV MCH MCHC RDW Std Deviation RDW Coeff of Adair Plt Count MPV Immature Gran % (Auto) Neut % (Auto) Lymph % (Auto) [place] % (Auto) Eos % (Auto) Baso % (Auto) Neut # (Auto) Lymph # (Auto) [place] # (Auto) Eos # (Auto) Baso # (Auto) Immature Gran # (Auto) Sodium 136 Potassium 4.0 Chloride 105 Carbon Dioxide 23 Anion Gap 8 BUN 30 H Creatinine 1.11 Est Cr Clr Drug Dosing 41.7 Est GFR ( Amer) 53.9 Est GFR (Non-Af Amer) 46.5 BUN/Creatinine Ratio 27.0 H Glucose 170 H POC Glucose Estimat Average Glucose Hemoglobin A1c Lactate 1.6 Calcium 9.4 Magnesium Total Bilirubin 0.7 Direct Bilirubin 0.1 AST 21 ALT 17 Alkaline Phosphatase 41 Troponin I High Sens 47.4 H B-Natriuretic Peptide 1017 H Total Protein 7.4 Albumin 3.7 Lipase 21 Urine Color Urine Appearance Urine pH Ur Specific [place] Urine Protein Urine Glucose (UA) Urine Ketones Urine Blood Urine Nitrite Urine Bilirubin Urine Urobilinogen Ur Leukocyte Esterase Urine WBC (Auto) Urine RBC (Auto) U Hyaline Cast (Auto) U Epithel Cells (Auto) Urine Bacteria (Auto) 01/21/24 01/21/24 01/21/24 12:22 13:15 14:11 WBC RBC Hgb Hct MCV MCH MCHC RDW Std Deviation RDW Coeff of Adair Plt Count MPV Immature Gran % (Auto) Neut % (Auto) Lymph % (Auto) [place] % (Auto) Eos % (Auto) Baso % (Auto) Neut # (Auto) Lymph # (Auto) [place] # (Auto) Eos # (Auto) Baso # (Auto) Immature Gran # (Auto) Sodium Potassium Chloride Carbon Dioxide Anion Gap BUN Creatinine Est Cr Clr Drug Dosing Est GFR ( Amer) Est GFR (Non-Af Amer) BUN/Creatinine Ratio Glucose POC Glucose 161 H Estimat Average Glucose Hemoglobin A1c Lactate Calcium Magnesium Total Bilirubin Direct Bilirubin AST ALT Alkaline Phosphatase Troponin I High Sens 47.2 H B-Natriuretic Peptide Total Protein Albumin Lipase Urine Color Yellow Urine Appearance Clear Urine pH 5.5 Ur Specific [place] 1.011 Urine Protein Negative Urine Glucose (UA) Negative Urine Ketones Negative Urine Blood 3+ H Urine Nitrite Negative Urine Bilirubin Negative Urine Urobilinogen Negative Ur Leukocyte Esterase 3+ H Urine WBC (Auto) 11-20 H Urine RBC (Auto) 3-5 H U Hyaline Cast (Auto) 0-2 U Epithel Cells (Auto) 0-2 Urine Bacteria (Auto) None Seen 01/21/24 01/21/24 01/21/24 19:09 19:39 20:54 WBC RBC Hgb Hct MCV MCH MCHC RDW Std Deviation RDW Coeff of [place]air Plt Count MPV Immature Gran % (Auto) Neut % (Auto) Lymph % (Auto) [place] % (Auto) Eos % (Auto) Baso % (Auto) Neut # (Auto) Lymph # (Auto) [place] # (Auto) Eos # (Auto) Baso # (Auto) Immature Gran # (Auto) Sodium Potassium Chloride Carbon Dioxide Anion Gap BUN Creatinine Est Cr Clr Drug Dosing Est GFR ( Amer) Est GFR (Non-Af Amer) BUN/Creatinine Ratio Glucose POC Glucose 149 H 184 H Estimat Average Glucose Hemoglobin A1c Lactate Calcium Magnesium Total Bilirubin Direct Bilirubin AST ALT Alkaline Phosphatase Troponin I High Sens 51.3 H* B-Natriuretic Peptide Total Protein Albumin Lipase Urine Color Urine Appearance Urine pH Ur Specific [place] Urine Protein Urine Glucose (UA) Urine Ketones Urine Blood Urine Nitrite Urine Bilirubin Urine Urobilinogen Ur Leukocyte Esterase Urine WBC (Auto) Urine RBC (Auto) U Hyaline Cast (Auto) U Epithel Cells (Auto) Urine Bacteria (Auto) 01/22/24 01/22/24 07:25 07:56 WBC 8.02 RBC 3.92 L Hgb 12.0 Hct 36.1 L MCV 92.1 MCH 30.6 MCHC 33.2 RDW Std Deviation 44.4 RDW Coeff of [place] 13.2 Plt Count 244 MPV 10.7 Immature Gran % (Auto) 0.5 Neut % (Auto) 59.2 Lymph % (Auto) 25.4 [place] % (Auto) 11.2 Eos % (Auto) 3.1 Baso % (Auto) 0.6 Neut # (Auto) 4.74 Lymph # (Auto) 2.04 [place] # (Auto) 0.90 H Eos # (Auto) 0.25 Baso # (Auto) 0.05 Immature Gran # (Auto) 0.04 Sodium 136 Potassium 4.4 Chloride 104 Carbon Dioxide 25 Anion Gap 7 BUN 31 H Creatinine 1.11 Est Cr Clr Drug Dosing 40.7 Est GFR ( Amer) 53.9 Est GFR (Non-Af Amer) 46.5 BUN/Creatinine Ratio 27.9 H Glucose 154 H POC Glucose 126 H Estimat Average Glucose 166 Hemoglobin A1c 7.4 H Lactate Calcium 9.6 Magnesium 1.8 Total Bilirubin Direct Bilirubin AST ALT Alkaline Phosphatase Troponin I High Sens B-Natriuretic Peptide Total Protein Albumin Lipase Urine Color Urine Appearance Urine pH Ur Specific [place] Urine Protein Urine Glucose (UA) Urine Ketones Urine Blood Urine Nitrite Urine Bilirubin Urine Urobilinogen Ur Leukocyte Esterase Urine WBC (Auto) Urine RBC (Auto) U Hyaline Cast (Auto) U Epithel Cells (Auto) Urine Bacteria (Auto) Diagnostic Findings Echocardiogram performed 01/21/2024: Normal LV systolic function with ejection fraction of 60 65%. Mild LVH. Mild left atrial dilation. Mild aortic regurgitation. Severe aortic stenosis. Moderate mitral regurgitation. Elevated right ventricular pressures estimated at 40-50 mm of mercury A head CT and MRI did not demonstrate any acute abnormalities. PG Care Time/CCT Total # of Minutes Spent Total Time Spent with Patient: Total time spent is greater than 50% in coordination of care (as documented) at patient's floor/unit and/or counseling patient: Coding Level of Care Code 36163 SUB INP/OBS CARE MIN Diagnoses Unstable angina pectoris I20.0 Chest pain type: chest pain due to myocardial ischemia Ischemic chest pain type: unstable angina pectoris Acute on chronic heart failure with preserved ejection fraction (HFpEF) I50.33 Aortic valve stenosis, etiology of cardiac valve disease unspecified I35.0 Cardiac valve disease etiology: etiology unspecified Paroxysmal atrial fibrillation I48.0 Coronary artery disease I25.10 Mitral regurgitation I34.0 Unresponsiveness R41.89 (1) Chest pain Chest pain type: chest pain due to myocardial ischemia Ischemic chest pain type: unstable angina pectoris Qualified Code(s): I20.0 - Unstable angina (3) Aortic stenosis Cardiac valve disease etiology: etiology unspecified Qualified Code(s): I35.0 - Nonrheumatic aortic (valve) stenosis
[2024-01-22] MEDS: nitrofurantoin macrocrystaL 50 MG CAP PO SCH (12:25)
--- NOTE | 2024-01-22 12:36 | Electrocardiogram Report ---
Test Reason : Blood Pressure : / mmHG Vent. Rate : 067 BPM Atrial Rate : 067 BPM P-R Int : 202 ms QRS Dur : 112 ms QT Int : 492 ms P-R-T Axes : 065 091 -76 degrees QTc Int : 519 ms Normal sinus rhythm Rightward axis Prolonged QT Abnormal ECG When compared with ECG of 21-JAN-2024 09:35, ST now depressed in Anterior leads Confirmed by Terence Cohen ([id number]) on 01/22/2024 12:35:19 PM Referred By: REFERRED SELF Confirmed By:Shad Cohen
--- NOTE | 2024-01-22 14:12 | Hospitalist Progress Note ---
Date of Service January 22, 2024 Assessment & Plan (1) Acute on chronic heart failure with preserved ejection fraction (HFpEF): (2) Chest pain: (3) Severe aortic stenosis: Plan: This is an 83 y/o female with chronic diastolic heart failure, CAD s/p cardiac stent, insulin-requiring DM2, fibromyalgia, recurrent UTI, on chronic Macrobid, atrial fibrillation, on chronic AC, GERD, and other history as outlined who presented today after an unresponsive episode at home this morning. She also notes a pattern of worsening exertional chest pain, only transient improvement with nitro/rest. nitial troponin elevated in the 40s, repeat was stable. Demand ischemia in the setting of acute on chronic HFpEF. Weight is up 10-15 lbs from baseline, +new orthopnea, worsening SALCIDO. Echocardiogram was done which showed normal left ventricle systolic function. Severe aortic stenosis. Moderate mitral regurgitation. Patient was diuresed with IV Lasix; switched over to p.o. Lasix as per cardiology recommendation Patient to undergo left heart cath possibly tomorrow a.m. Eliquis currently on hold as per cardiology recommendation Strict input and output monitoring (4) Stroke-like symptoms: Plan: Patient had presented with 1 episode of unresponsiveness which resolved spontaneously CT head without contrast did not show any acute intracranial findings Brain MRIno acute intracranial finding Continue to monitor (5) Paroxysmal atrial fibrillation: Plan: Chronic, stable Continue beta sean, chronic AC (6) Recurrent urinary tract infection: Plan: Denies urinary symptoms at present Continue suppressive nitrofurantoin (7) Diabetes mellitus with diabetic nephropathy: Plan: Chronic, stable Continue basal insulin with Novolog sliding scale Diabetic diet BSG ACHS (8) Hypertension: Plan: Chronic, stable Continue outpatient regiment (9) Anxiety disorder: Plan: Recent increase in stress related to sister's cancer diagnosis - pt is following with psychiatry, on fluoxetine and prn Klonopin Pt feels like this is well-controlled on current regimen so will continue Plan Code status: DNR/DNI DVT Prophylaxis: on chronic Eliquis - will continue Dispo: PCU Time spent evaluating patient, direct bedside care, chart review, placing orders, interpretation of diagnostic studies, discussion with consultants, patient, and family members, as well as other required patient management act ivities is 50 minutes Please note the above document was generated using voice recognition software. It may contain grammatical, syntax or spelling errors. Any formal questions or concerns about the content, text or information contained within the body of this dictation should be directly addressed to the provider for clarification Admission and Anticipated Discharge Date Admission Date: January 21, 2024 Subjective Patient seen and examined at bedside. She is comfortably sitting up on the chair at the side of the bed; not in distress She denies any chest pain, shortness of breath, abdominal pain or weakness/numbness of any body part Review of Systems Review of Systems: All systems reviewed & are unremarkable except as noted in Subjective Physical Exam Physical Exam: Constitutional: WD/WN, vitals as above, NAD, sitting up in bed, pleasant, conversing easily Respiratory: normal respiratory effort, lungs clear to auscultation, no wheeze, rales, rhonchi. Normal insp/exp effort, no accessory muscle use Cardiovascular: RRR, no murmur, no edema Vessels: no JVD or carotid bruit Chest: normal inspection of chest Abdomen: normal bowel sounds, soft, nontender, no hepatosplenomegaly Musculoskeletal: no cyanosis or clubbing, extremities motor strength 5/5 Skin: no rashes, warm and dry normal turgor Neurologic: PERRL, EOMI, accommodation nl, no face palsy, no dysarthria CN's II- XI intact bilaterally and moves all extremities Psychiatric: A+Ox3, euthymic affect Results & Data Results & Data Vital Signs (Past 12 Hours) Vital Signs Temp Pulse Pulse Resp BP BP Pulse Ox 01/22/24 11:25 36.3 C L 64 18 111/58 L 94 01/22/24 10:43 65 01/22/24 07:26 36.6 C 53 L 19 107/56 L 91 01/22/24 03:01 36.5 C 63 18 122/69 94 O2 Del Method 01/22/24 11:25 Room Air 01/22/24 10:43 01/22/24 07:26 Room Air 01/22/24 03:01 Room Air (2) Chest pain Chest pain type: chest pain due to myocardial ischemia Ischemic chest pain type: unstable angina pectoris Qualified Code(s): I20.0 - Unstable angina (7) Diabetes mellitus with diabetic nephropathy Diabetes mellitus manager terminal insulin use: with skilled nursing use Diabetes mellitus type: type 2 Qualified Code(s): E11.21 - Type 2 diabetes mellitus with diabetic nephropathy; Z79.4 - USP (current) use of insulin (8) Hypertension Hypertension type: essential hypertension Qualified Code(s): I10 - Essential (primary) hypertension (9) Anxiety disorder Anxiety disorder type: generalized anxiety disorder Qualified Code(s): F41.1 - Generalized anxiety disorder
[2024-01-23 08:10] LABS: Basophils # (auto) 0.06 K/uL (0.00-0.20); Basophils % (auto) 0.8 %; Eosinophils # (auto) 0.28 K/uL (0.00-0.50); Eosinophils % (auto) 3.6 %; Hematocrit (blood only) 37.4 % (37.0-47.0); Hemoglobin 12.3 g/dl (12.0-16.0); Immature Granulocytes # (auto) 0.01 K/uL (0.01-0.20); Immature Granulocytes % (auto) 0.1 %; Lymphocytes # (auto) 1.97 K/uL (1.20-3.40); Lymphocytes % (auto) 25.6 %; Mean Corpuscular Hemoglobin 30.1 pg (25.0-34.0); Mean Corpuscular Hgb Conc 32.9 g/dL (32.0-36.0); Mean Corpuscular Volume 91.4 fL (80.0-100.0); Mean Platelet Volume 10.7 fL (9.4-12.4); Monocytes # (auto) 0.87 K/uL (0.11-0.59); Monocytes % (auto) 11.3 %; Neutrophils % (auto) 58.6 %; Platelet Count 249 K/uL (130-400); RDW Coefficient of Variation 13.1 % (11.5-14.5); RDW Standard Deviation 43.8 fL (36.4-46.3); Red Blood Count 4.09 M/uL (4.20-5.40); White Blood Count 7.69 K/ul (4.8-10.8)
[2024-01-23 08:27] LABS: BUN Creatinine Ratio 33.6 (10-20); Calcium 9.7 mg/dl (8.6-10.3); Creatinine Clr Calc Pharmacy 41.1 ml/min; Est GFR (African American) 54.5 ml/min; Potassium 4.4 mmol/L (3.5-5.1)
--- NOTE | 2024-01-23 12:34 | Pre Anesthesia Assessment ---
Date of Service January 23, 2024 Pre Sedation Assessment Vital Signs Temp Pulse Pulse Resp BP BP Pulse Ox 01/23/24 11:35 36.5 C 67 17 116/62 96 01/23/24 07:33 36.4 C L 65 18 101/59 L 98 01/23/24 07:08 64 01/23/24 03:20 36.8 C 68 18 134/82 94 01/22/24 22:14 36.5 C 76 18 117/68 98 01/22/24 22:04 69 01/22/24 19:38 36.8 C 69 18 120/58 L 96 01/22/24 15:53 60 01/22/24 15:27 36.4 C L 67 22 102/54 L 93 O2 Del Method 01/23/24 11:35 Room Air 01/23/24 07:33 Room Air 01/23/24 07:08 01/23/24 03:20 Room Air 01/22/24 22:14 Room Air 01/22/24 22:04 01/22/24 19:38 Room Air 01/22/24 15:53 01/22/24 15:27 Room Air Cardiovascular + regular rate and + regular rhythm Respiratory + respiratory effort normal Pre-Sedation Airway Assessment Smoking Status: Former smoker Hx Sleep Apnea: No Hx Difficult Intubation: No Short, Thick Neck: No Thyromental Distance: > or= 3.5 Finger Breadths ASA: ASA3 Procedure Planning Contraindications for Sedation: none Current Medications Reviewed: Yes Notes The planned sedation has been discussed with the patient. Informed Consent was obtained. I have identified the patient, determined the appropriateness of sedation and have assessed the patient immediately prior to the procedure. All medicine(s) and interventions are by my order.
[2024-01-23] MEDS: fentaNYL citrate PF 100 MCG/2 ML VIAL ONE (13:18)
[2024-01-23] MEDS: HEPARIN (PORCINE) 1000 UNIT/ML 10 ML (CATH LAB USE ONLY) ONE (13:18)
[2024-01-23] MEDS: MIDAZOLAM HCL 1 MG/ML 2ML VIAL ONE (13:19)
[2024-01-23] MEDS: niCARdipine HCL INJ 2.5 MG/ML 10 ML AMP ONE (13:19)
[2024-01-23] MEDS: NITROGLYCERIN/D5W 100MCG/ML 20ML SYR ONE (13:19)
[2024-01-23] MEDS: IODIXANOL (VISIPAQUE) 320 MG/ML 100ML IV ONE (13:20)
[2024-01-23] MEDS: LIDOCAINE 1% LOCAL 20 ML VIAL ONE (13:21)
--- NOTE | 2024-01-23 13:22 | Cardiac Catheterization ---
[facility] Data: Refinish Technician Cardiac Status Clinical evaluation leading to the procedure CAD Presenation: Non STEMI Diagnostic Physicians Name: Terence Cohen MD Closure Device Recommendations: CABG and Valve Replacement Cardiac Cath Procedure Full Procedure Date January 23, 2024 Pre-Procedure Diagnosis Pre-Procedure Diagnosis: Valvular Disease AUC Score AUC Score: 8 Post-Procedure Diagnosis Post-Procedure Diagnosis: Severe CAD Procedure(s) Performed Procedure(s) Performed: Coronary Angiography and Left Heart Cath Cupola Charger Terence Cohen MD Commissary Clerk(s) none Estimated Blood Loss Estimated Blood Loss: 7cc Medication(s) Medication(s): Fentanyl, Heparin, Lidocaine 1%, Nitroglycerin and Versed Summary of Findings Procedure performed: Cardiac catheterization Staff charge account authorizer: Terence Cohen MD Indication: Procedure in detail: The patient was informed of the risks benefits and alternatives to the intended procedure, he understood such and wished to proceed. He was taken to the cardiac catheterization suite in a fasting state. Conscious sedation was administered per protocol and the patient was monitored electrocardiographically throughout today's procedure. The right wrist area was prepped and draped in usual sterile fashion. This area was anesthetized using subcutaneous administration of a lidocaine solution. The right radial artery was then accessed using Seldinger technique, and a arterial sheath was placed at this site over a guidewire. The sheath was used to facilitate passage of the cardiac catheter for coronary angiography and left heart catheterization. Coronary angiogram was then obtained in multiple orthogonal views prior to removal of the catheter. At the conclusion of the procedure the sheath was removed and hemostasis was achieved at the access site using manual pressure. The patient tolerated procedure well, there were no immediate complications. Equipment used: 5 English tiger 4 Findings: Coronaries Left main: Left main was normal in size and caliber he and he had a distal 50- 60% stenosis that involved the bifurcation into the left anterior descending and left circumflex arteries. Left anterior descending: Left anterior descending was normal in size and caliber. There was a 50% distal lesion. Several small diagonals. Left circumflex: Left circumflex was a nondominant vessel. He had had a 90% stenosis in its proximal portion and a 50% stenosis in its distal portion after it branched into a large OM. Right coronary: The right coronary was occluded in its midportion. It fills via [id number] collaterals. There was a large acute marginal system with approximately 60% stenosis in its proximal portion. Impression: Severe coronary disease involving chronic total occlusion of the right coronary artery and distal left main stenosis Right dominant coronary system Hemodynamics Rest Ao:: 93/47 mm of mercury Final Ao: 117/62 mm of mercury LV: n/a Recommendations Recommendations: CABG and Valve Replacement Specimens Specimens: None Radiation Exposure (mGy) 609 Contrast (mls) 40 Procedural Complication(s) None Disposition PCU I attest to the content of the Intraoperative Record and any orders documented therein. Any exceptions are noted below. [facility] Card Cath Procedure Codes Cardiac Catheterization Procedure 1: Cardiovascular Cath Procedures: 42024 Coronaries Moderate Sedation Procedure 1: Sedation/Anesthesia: 20039 Mod Sedation by the same physician;Init15 Min Child Age 5 & Up Procedure 2: Sedation/Anesthesia: 90588 Mod Sedation by the same physician; Ea [id number] Minutes PG Care Time/CCT Total # of Minutes Spent Total Time Spent with Patient: Total time spent is greater than 50% in coordination of care (as documented) at patient's floor/unit and/or counseling patient:
--- NOTE | 2024-01-23 13:22 | Post Anesthesia Assessment ---
Date of Service January 23, 2024 Post Sedation Assessment Vital Signs Temp Pulse Pulse Resp BP BP Pulse Ox 01/23/24 12:37 65 16 127/86 96 01/23/24 11:35 36.5 C 67 17 116/62 96 01/23/24 07:33 36.4 C L 65 18 101/59 L 98 01/23/24 07:08 64 01/23/24 03:20 36.8 C 68 18 134/82 94 01/22/24 22:14 36.5 C 76 18 117/68 98 01/22/24 22:04 69 01/22/24 19:38 36.8 C 69 18 120/58 L 96 01/22/24 15:53 60 01/22/24 15:27 36.4 C L 67 22 102/54 L 93 O2 Del Method 01/23/24 12:37 Room Air 01/23/24 11:35 Room Air 01/23/24 07:33 Room Air 01/23/24 07:08 01/23/24 03:20 Room Air 01/22/24 22:14 Room Air 01/22/24 22:04 01/22/24 19:38 Room Air 01/22/24 15:53 01/22/24 15:27 Room Air Recovery Score Activity: Moves 4 extremities Respiration: Deep Breath/Cough Circulation: +/-20% PreAnes Value Consciousness: Fully Awake Oxygen Saturation: > 92% On Room Air Discharge Sedation Level of Care: Fast Track Phase II Post Sedation Plan On clinical assessment, the patient appears to have tolerated the sedation without complications. Patient is recovering as anticipated. Patient will continue to be monitored by nursing and may be discharged when sedation discharge criteria are met per below protocol. Upon Completions of procedure up to 15 minutes continue every 5 minute vital signs and the P.A.R. score; then discharge to a Phase I or Fast Track to Phase II per the following guidelines: * Discharge Patient to appropriate Phase II area if PAR is 8 or greater or return to pre- procedure baseline. The post - procedure orders will be as directed. * If PAR score is less than 8 or not return to pre-procedure baseline then patient will follow Phase I monitoring till PAR is reached for Phase II. The Phase I may be done in procedure room or may call to secure a Phase I area. * If naloxone or flumazenil are used for reversal, hold in Phase I for continued monitoring from when last reversal dose was given for a minimum of 60 minutes or longer pending the nurse and/or physician discretion of patient condition before discharge to Phase II. Please call the Sedation Physician to re-evaluate and complete post-note for discharge to Phase II area. Do NOT discharge from procedure sedation or Phase 1 until post- sedation evaluation note is complete by procedure /sedation MD Sedation Discharge Instructions to be given to the patient at discharge to home.
--- NOTE | 2024-01-23 16:07 | Hospitalist Progress Note ---
Date of Service January 23, 2024 Assessment & Plan (1) Severe aortic stenosis: (2) Acute on chronic heart failure with preserved ejection fraction (HFpEF): (3) Paroxysmal atrial fibrillation: (4) Coronary artery disease: (5) Episode of unresponsiveness: (6) Diabetes type 2, uncontrolled: Plan Patient presented with an unresponsive episode which is determined most likely to be hypoperfusion of her brain due to severe aortic stenosis. No recurrent episodes while in the hospital. Plan is for patient to go to cardiac catheterization today determine extent of any coronary disease and determine if patient a candidate for valve replacement Family at bedside indicated that if patient would require more immediate/urgent valve replacement or intervention they would want to go to [facility] Follow-up with cardiac cath and recommendations from cardiology Continue current medical treatment at this time Continue current insulin, monitor glucose Therapies Discharge planning Admission and Anticipated Discharge Date Admission Date: January 21, 2024 Subjective Patient very drowsy after receiving a benzodiazepine this morning. Family at bedside Physical Exam Physical Exam: Constitutional: Drowsy but no acute distress HEENT: Mucous membranes moist. Lungs: Decreased breath sounds, no wheezes CV: S1-S2, regular, systolic murmur Abdomen: Soft, nontender, nondistended Extremities: Pretibial edema Neuro: No focal deficits Psych: Cooperative, normal mood Results & Data Results & Data Vital Signs (Past 12 Hours) Vital Signs Temp Pulse Pulse Resp BP Pulse Ox O2 Del Method 01/23/24 15:50 63 01/23/24 15:37 36.3 C L 59 L 19 102/63 96 Room Air 01/23/24 15:32 36.5 C 61 18 108/65 94 Room Air 01/23/24 14:02 36.5 C 63 18 111/54 L 95 Room Air 01/23/24 13:44 64 18 111/49 L 93 Room Air 01/23/24 13:30 68 18 117/54 L 93 Room Air 01/23/24 12:37 65 16 127/86 96 Room Air 01/23/24 11:35 36.5 C 67 17 116/62 96 Room Air 01/23/24 07:33 36.4 C L 65 18 101/59 L 98 Room Air 01/23/24 07:08 64 Diagnostic Findings Reviewed imaging, laboratory and diagnostic studies. Pertinent findings as below. Cardiac cath report pending Sodium 135 CBC stable
[2024-01-23] MEDS: OPTIRAY 350 ONE (16:14)
--- NOTE | 2024-01-23 17:29 | Cardiology Progress Note ---
Date of Service January 23, 2024 Assessment & Plan (1) Chest pain: (2) Acute on chronic heart failure with preserved ejection fraction (HFpEF): (3) Aortic stenosis: (4) Paroxysmal atrial fibrillation: (5) Coronary artery disease: (6) Mitral regurgitation: (7) Unresponsiveness: Plan 1. Unresponsive episode: Unclear etiology. No recurrence. I do not believe this is related to her valvular heart disease. 2. Decompensated heart failure with preserved ejection fraction: Much improved. We have resumed her usual outpatient regimen of diuretic. 3. Aortic stenosis: This appears to be severe on her current echocardiogram. Unfortunately, given her degree of coronary disease she is not likely to be a candidate for percutaneous replacement. 4. Chest pain: Very atypical. It is possible some of her symptoms are angina given the coronary disease we salt today. However, symptoms are still atypical. 5. Mitral regurgitation: Moderate. 6. Coronary disease: Status post PCI to the circumflex system. Prior stent is widely patent. However, she does have distal left main disease. Also chronic total occlusion right coronary artery which fills via [id number] collaterals. We discussed the need for surgical revascularization and AVR. With this can be performed as an outpatient is unclear. We will see how she feels tomorrow which is more ambulatory. With concerning symptoms she may need to be referred as an inpatient more urgent evaluation and intervention. Admission and Anticipated Discharge Date Admission Date: January 21, 2024 Subjective This afternoon the patient claimed he feeling well. She had undergone her catheterization. She did not report any worsening breathing difficulty or chest pain. No discomfort at the right hand radial access site. Review of Systems Review of Systems: Per HPI Physical Exam Physical Exam: She is alert and oriented x3. Mood affect appear normal. She answered all questions appropriately. Lying flat in bed. HEENT: Sclerae are anicteric. Pupils are equal and reactive to light and accommodation. Extraocular movements were intact. Neuro: Cranial nerves intact Lungs: Lungs are clear to auscultation bilaterally. There are no rales wheezes or rhonchi. She has normal respiratory effort without use of accessory muscles. There is normal pulmonary excursion. Cardiac: The rhythm was regular. S1 and S2 were normal. Very soft crescendo systolic murmur The PMI was not markedly displaced on palpation. Extremities: Good perfusion of the right hand with palpable right radial pulse. Skin: There are no rashes noted on examination today. Results & Data Vital Signs (Past 12 Hours) Vital Signs Temp Pulse Pulse Resp BP Pulse Ox O2 Del Method 01/23/24 15:50 63 01/23/24 15:37 36.3 C L 59 L 19 102/63 96 Room Air 01/23/24 15:32 36.5 C 61 18 108/65 94 Room Air 01/23/24 14:02 36.5 C 63 18 111/54 L 95 Room Air 01/23/24 13:44 64 18 111/49 L 93 Room Air 01/23/24 13:30 68 18 117/54 L 93 Room Air 01/23/24 12:37 65 16 127/86 96 Room Air 01/23/24 11:35 36.5 C 67 17 116/62 96 Room Air 01/23/24 07:33 36.4 C L 65 18 101/59 L 98 Room Air 01/23/24 07:08 64 Laboratory Results Abnormal Lab Results 01/22/24 01/23/24 01/23/24 20:32 07:02 07:41 WBC 7.69 RBC 4.09 L Hgb 12.3 Hct 37.4 MCV 91.4 MCH 30.1 MCHC 32.9 RDW Std Deviation 43.8 RDW Coeff of Adair 13.1 Plt Count 249 MPV 10.7 Immature Gran % (Auto) 0.1 Neut % (Auto) 58.6 Lymph % (Auto) 25.6 [place] % (Auto) 11.3 Eos % (Auto) 3.6 Baso % (Auto) 0.8 Neut # (Auto) 4.50 Lymph # (Auto) 1.97 [place] # (Auto) 0.87 H Eos # (Auto) 0.28 Baso # (Auto) 0.06 Immature Gran # (Auto) 0.01 Sodium 135 L Potassium 4.4 Chloride 104 Carbon Dioxide 25 Anion Gap 6 BUN 37 H Creatinine 1.10 Est Cr Clr Drug Dosing 41.1 Est GFR ( Amer) 54.5 Est GFR (Non-Af Amer) 47.0 BUN/Creatinine Ratio 33.6 H Glucose 149 H POC Glucose 130 H 148 H Calcium 9.7 01/23/24 01/23/24 11:01 16:15 WBC RBC Hgb Hct MCV MCH MCHC RDW Std Deviation RDW Coeff of Adair Plt Count MPV Immature Gran % (Auto) Neut % (Auto) Lymph % (Auto) [place] % (Auto) Eos % (Auto) Baso % (Auto) Neut # (Auto) Lymph # (Auto) [place] # (Auto) Eos # (Auto) Baso # (Auto) Immature Gran # (Auto) Sodium Potassium Chloride Carbon Dioxide Anion Gap BUN Creatinine Est Cr Clr Drug Dosing Est GFR ( Amer) Est GFR (Non-Af Amer) BUN/Creatinine Ratio Glucose POC Glucose 127 H 119 H Calcium Diagnostic Findings Cardiac catheterization performed today revealed distal left main disease as well as nonobstructive disease in the mid to distal LAD. The right coronary is chronically occluded and fills via [id number] collaterals. Catheterization performed via right radial artery. PG Care Time/CCT Total # of Minutes Spent Total Time Spent with Patient: Total time spent is greater than 50% in coordination of care (as documented) at patient's floor/unit and/or counseling patient: Coding Level of Care Code 61818 SUB INP/OBS CARE 2/35MIN Diagnoses Unstable angina pectoris I20.0 Chest pain type: chest pain due to myocardial ischemia Ischemic chest pain type: unstable angina pectoris Acute on chronic heart failure with preserved ejection fraction (HFpEF) I50.33 Aortic valve stenosis, etiology of cardiac valve disease unspecified I35.0 Cardiac valve disease etiology: etiology unspecified Paroxysmal atrial fibrillation I48.0 Coronary artery disease I25.10 Mitral regurgitation I34.0 Unresponsiveness R41.89 (1) Chest pain Chest pain type: chest pain due to myocardial ischemia Ischemic chest pain type: unstable angina pectoris Qualified Code(s): I20.0 - Unstable angina (3) Aortic stenosis Cardiac valve disease etiology: etiology unspecified Qualified Code(s): I35.0 - Nonrheumatic aortic (valve) stenosis
[2024-01-24 07:03] LABS: Hemoglobin 11.7 g/dl (12.0-16.0); Mean Corpuscular Hemoglobin 30.4 pg (25.0-34.0); Mean Corpuscular Hgb Conc 33.4 g/dL (32.0-36.0); Mean Corpuscular Volume 90.9 fL (80.0-100.0); Mean Platelet Volume 10.5 fL (9.4-12.4); Platelet Count 233 K/uL (130-400); RDW Coefficient of Variation 13.2 % (11.5-14.5); RDW Standard Deviation 43.1 fL (36.4-46.3); Red Blood Count 3.85 M/uL (4.20-5.40); White Blood Count 7.72 K/ul (4.8-10.8)
[2024-01-24 07:19] LABS: Calcium 9.3 mg/dl (8.6-10.3); Magnesium 1.9 mg/dl (1.7-2.4); Potassium 4.2 mmol/L (3.5-5.1)
[2024-01-24 07:25] LABS: BUN Creatinine Ratio 30.2 (10-20); Creatinine Clr Calc Pharmacy 47.1 ml/min; Est GFR (African American) 64.3 ml/min; Est GFR (Non-African American) 55.5 ml/min
[2024-01-24] MEDS: FUROSEMIDE 20 MG TAB PO PRN (08:09)
[2024-01-24] MEDS: traMADol HCL 50 MG TABLET PO PRN (13:40)
--- NOTE | 2024-01-24 15:26 | Cardiology Progress Note ---
Date of Service January 24, 2024 Assessment & Plan (1) Chest pain: (2) Acute on chronic heart failure with preserved ejection fraction (HFpEF): (3) Aortic stenosis: (4) Paroxysmal atrial fibrillation: (5) Coronary artery disease: (6) Mitral regurgitation: (7) Unresponsiveness: Plan 1. Unresponsive episode: Unclear etiology. No recurrence. I do not believe this is related to her valvular heart disease. Brain MRI did not demonstrate any evidence of infarction or abnormality. 2. Decompensated heart failure with preserved ejection fraction: Much improved. We have resumed her usual outpatient regimen of diuretic. 3. Aortic stenosis: This appears to be severe on her current echocardiogram. Unfortunately, given her degree of coronary disease she is not likely to be a candidate for percutaneous replacement. 4. Chest pain: Very atypical. It is possible some of her symptoms are angina given the coronary disease we discovered. However, symptoms are still atypical. 5. Mitral regurgitation: Moderate. 6. Coronary disease: Status post PCI to the circumflex system. Prior stent is widely patent. However, she does have distal left main disease. Also chronic total occlusion right coronary artery which fills via [id number] collaterals. Patient anticipating and transferred to [facility] for evaluation by both the interventional cardiology service and Cardiothoracic surgery Service to determine the best intervention moving forward. She will require some revascularization, and aortic valve and possibly a mitral valve procedure. Plavix being held. Resume Eliquis. Continue metoprolol. Admission and Anticipated Discharge Date Admission Date: January 21, 2024 Subjective This afternoon the patient was resting comfortably in bed. No discomfort at the right radial access site. Good perfusion of the hand and could use of the hand. According to the patient when she tries to ambulate she does have some dyspnea, dizziness and intermittent chest pains. At rest no symptoms. Review of Systems Review of Systems: Per HPI Physical Exam Physical Exam: She is alert and oriented x3. Mood affect appear normal. She answered all questions appropriately. Lying flat in bed. HEENT: Sclerae are anicteric. Pupils are equal and reactive to light and accommodation. Extraocular movements were intact. Neuro: Cranial nerves intact Lungs: Lungs are clear to auscultation bilaterally. There are no rales wheezes or rhonchi. She has normal respiratory effort without use of accessory muscles. There is normal pulmonary excursion. Cardiac: The rhythm was regular. S1 and S2 were normal. Very soft crescendo systolic murmur The PMI was not markedly displaced on palpation. Extremities: Good perfusion of the right hand with palpable right radial pulse. Skin: There are no rashes noted on examination today. Results & Data Vital Signs (Past 12 Hours) Vital Signs Temp Pulse Pulse Resp BP Pulse Ox O2 Del Method 01/24/24 11:15 36.5 C 65 20 113/69 97 Room Air 01/24/24 08:10 61 01/24/24 08:10 Room Air 01/24/24 07:53 36.4 C L 63 18 105/66 94 Room Air Laboratory Results Abnormal Lab Results 01/23/24 01/23/24 01/24/24 16:15 19:57 06:36 WBC 7.72 RBC 3.85 L Hgb 11.7 L Hct 35.0 L MCV 90.9 MCH 30.4 MCHC 33.4 RDW Std Deviation 43.1 RDW Coeff of Adair 13.2 Plt Count 233 MPV 10.5 Sodium 136 Potassium 4.2 Chloride 107 Carbon Dioxide 23 Anion Gap 6 BUN 29 H Creatinine 0.96 Est Cr Clr Drug Dosing 47.1 Est GFR ( Amer) 64.3 Est GFR (Non-Af Amer) 55.5 BUN/Creatinine Ratio 30.2 H Glucose 113 H POC Glucose 119 H 120 H Calcium 9.3 Magnesium 1.9 01/24/24 01/24/24 07:30 11:05 WBC RBC Hgb Hct MCV MCH MCHC RDW Std Deviation RDW Coeff of Adair Plt Count MPV Sodium Potassium Chloride Carbon Dioxide Anion Gap BUN Creatinine Est Cr Clr Drug Dosing Est GFR ( Amer) Est GFR (Non-Af Amer) BUN/Creatinine Ratio Glucose POC Glucose 151 H 170 H Calcium Magnesium PG Care Time/CCT Total # of Minutes Spent Total Time Spent with Patient: Total time spent is greater than 50% in coordination of care (as documented) at patient's floor/unit and/or counseling patient: Coding Level of Care Code 62763 SUB INP/OBS CARE 3/50MIN Diagnoses Unstable angina pectoris I20.0 Chest pain type: chest pain due to myocardial ischemia Ischemic chest pain type: unstable angina pectoris Acute on chronic heart failure with preserved ejection fraction (HFpEF) I50.33 Aortic valve stenosis, etiology of cardiac valve disease unspecified I35.0 Cardiac valve disease etiology: etiology unspecified Paroxysmal atrial fibrillation I48.0 Coronary artery disease I25.10 Mitral regurgitation I34.0 Unresponsiveness R41.89 (1) Chest pain Chest pain type: chest pain due to myocardial ischemia Ischemic chest pain type: unstable angina pectoris Qualified Code(s): I20.0 - Unstable angina (3) Aortic stenosis Cardiac valve disease etiology: etiology unspecified Qualified Code(s): I35.0 - Nonrheumatic aortic (valve) stenosis
--- NOTE | 2024-01-24 16:33 | Hospitalist Progress Note ---
Date of Service January 24, 2024 Assessment & Plan (1) Severe aortic stenosis: (2) Acute on chronic heart failure with preserved ejection fraction (HFpEF): (3) Paroxysmal atrial fibrillation: (4) Coronary artery disease: (5) Episode of unresponsiveness: (6) Diabetes type 2, uncontrolled: Plan Patient presented with some type of unresponsive episode, question if it was due to her severe aortic stenosis. Patient and family states that she is extremely interested in some type of intervention on her heart. Communication with cardiology, patient not a candidate for percutaneous valve replacement, with most likely will need some type of revascularization as well as heart valve with her coronary disease. Cardiology has coordinated transfer to [facility]. They have an accepting physician and awaiting for a bed Plavix remains on hold in anticipation of possible surgical intervention Discharged to [facility] when bed available Admission and Anticipated Discharge Date Admission Date: January 21, 2024 Subjective Patient reports that she still feels weak after cardiac cath. Nursing reports that she has been up and able to ambulate to the bathroom. Family and patient at the bedside very motivated to have intervention on her aortic valve Physical Exam Physical Exam: Constitutional: Alert HEENT: Mucous membranes moist. Lungs: Clear to auscultation, decreased, no wheezes rales or rhonchi CV: S1-S2, regular, systolic murmur Abdomen: Soft, nontender, nondistended Extremities: No significant edema Neuro: No focal deficits Psych: Cooperative, normal mood Results & Data Results & Data Vital Signs (Past 12 Hours) Vital Signs Temp Pulse Pulse Resp BP Pulse Ox O2 Del Method 01/24/24 16:23 66 01/24/24 15:24 36.7 C 70 20 117/66 95 Room Air 01/24/24 11:15 36.5 C 65 20 113/69 97 Room Air 01/24/24 08:10 61 01/24/24 08:10 Room Air 01/24/24 07:53 36.4 C L 63 18 105/66 94 Room Air Diagnostic Findings Reviewed imaging, laboratory and diagnostic studies. Pertinent findings as below. Electrolytes stable Hemoglobin 11.7
--- NOTE | 2024-01-24 16:38 | Discharge Summary ---
Discharge Summary Date of Service January 24, 2024 Principal Dx & Hospital Course #1 = Principal Diagnosis (1) Severe aortic stenosis: (2) Acute on chronic heart failure with preserved ejection fraction (HFpEF): (3) Paroxysmal atrial fibrillation: (4) Coronary artery disease: (5) Episode of unresponsiveness: (6) Diabetes type 2, uncontrolled: Plan Patient was admitted to the hospital. Underwent MRI of the brain for her unres ponsive episode. There was no evidence of acute event. Cardiology consultation was obtained after echocardiogram showed severe aortic stenosis. Was evaluated by cardiology who recommended cardiac catheterization. Patient underwent cardiac catheterization. Showed significant coronary disease as well as severe aortic stenosis. During her hospitalization patient had no further episodes that prompted her to come to the emergency room. Is unclear if her symptoms are truly related to her cardiac or valvular disease, however patient extremely interested in pursuing an urgent evaluation for possible surgical intervention. Cardiology coordinated transfer to [facility] at the patient's request and with an accepting roll cleaner. During her hospitalization her rates are controlled. Her glucose and diabetes was monitored and treated with insulin. She was somewhat weakened from her overall condition but was up and ambulatory. Other vital signs are stable. She will be transferred to [facility] when bed available for evaluation by cardiothoracic surgery and interventional cardiology. Notes For Next Care Provider Medication Changes From Visit Plavix on hold due to possible surgical intervention Admission HPI Per Admitting Provider This is an 83 y/o female with chronic diastolic heart failure, CAD s/p cardiac stent, insulin-requiring DM2, fibromyalgia, recurrent UTI, on chronic Macrobid, atrial fibrillation, on chronic AC, GERD, and other history as outlined who presented today after an unresponsive episode at home this morning. History is obtained from patient and her daughter at the bedside. Pt was drinking a glass of water when her daughter turned around and noted that pt had started clutching her chest, her left arm was shaking, her face pulled to the side/drooping, and she wasn't focusing or answering question. Never seemed to fully lose consciousness but pt has no memory of the event. Loss of awareness seemed to last 30-60 seconds. No urinary or bowel incontinence. Hx of childhood "c onvulsions" but never diagnosed with a seizure disorder. Pt has noticed chest pains for the last several months but worse over the last two weeks, especially with exertion. She was given nitroglycerin by her roll cleaner, which she has been taking, and she states helps but only transiently. The pain will recur, even with rest, several minutes after taking the nitro. She describes pain as being in the left breast/left lower ribs - may radiate to her left arm and/or neck. This does not feel similar to when she required her prior cardiac stent. She also notes some residual soreness in the chest, but thinks that this may be more related to known fibromyalgia, which also causes pain in her back and shoulder. The chest pain is not reproducible with palpation. She has not noted any lower extremity edema but her weight is up about 10 lbs from baseline. Her daughter notes giving pt a dose of the prn furosemide last week, which helped transiently. She has had some mild nausea but no vomiting. Denies fevers, sweats. changes in bowels or bladder function. She is on chronic Macrobid for UTI - last UTI was Jul 2021. She has chronic hematuria, which is unchanged. Admission Exam Per Admitting Provider See H&P Discharge Exam Constitutional: Alert HEENT: Mucous membranes moist. Lungs: Clear to auscultation, decreased, no wheezes rales or rhonchi CV: S1-S2, systolic murmur Abdomen: Soft, nontender, nondistended Extremities: No significant edema Neuro: No focal deficits Psych: Cooperative, normal mood Updated Medication List Medication Instructions Recorded Confirmed Type clonazepam 0.5 mg tablet 0.5 mg PO BID PRN anxiety #60 tabs 07/22/20 01/21/24 Rx insulin aspart U-100 100 unit/mL 1 sliding scale dose subcut UD 07/28/21 01/21/24 History (3 mL) subcutaneous pen (Novolog FlexPen U-100 Insulin aspart) omeprazole 20 mg capsule,delayed 20 mg PO DAILYBB PRN Acid Reflux 07/28/21 01/21/24 History release tramadol 50 mg tablet 50 mg PO Q8 PRN Pain, Severe 07/28/21 01/21/24 History furosemide 20 mg tablet 20 mg PO [id number] PRN weight gain 09/27/21 01/21/24 History apixaban 5 mg tablet (Eliquis) 5 mg PO BID #180 tabs 07/26/23 01/21/24 Rx clopidogrel 75 mg tablet 75 mg PO QAM #90 tabs 07/27/23 01/21/24 Rx evolocumab 140 mg/mL subcutaneous 140 mg subcut .Every 2 weeks #2 mL 11/08/23 01/21/24 Rx pen injector (Sadaf Crossick) nitrofurantoin macrocrystal 50 mg 50 mg PO DAILY #90 caps 11/22/23 01/21/24 Rx capsule insulin glargine 100 unit/mL 30 unit subcut PM 01/09/24 01/21/24 History subcutaneous solution (Lantus U-100 Insulin) nitroglycerin 0.4 mg sublingual 0.4 mg sublingual Q5M PRN chest 01/10/24 01/21/24 Rx tablet pain #20 tabs cholecalciferol (vitamin D3) 50 50 mcg PO DAILY 01/21/24 01/21/24 History mcg (2,000 unit) capsule (Vitamin D3) metoprolol succinate 25 mg 25 mg PO HS 01/21/24 01/21/24 History tablet,extended release 24 hr Hospital Stay Data Consultations 01/21/24 11:39 ED Decision to Admit Stat 01/21/24 12:46 Consult Cardiology Routine 01/24/24 15:48 Burn CD for patient Stat Procedures Performed Operation Date: 01/23/24 12:50 Actual Procedures s Cineradiography w/Routine Exam - Terence Cohen MD p Cath, Coronaries ONLY (no LV) - Terence oChen MD Diagnostic Imagining Performed 01/21/24 10:06 CT head/brain wo con Stat 01/21/24 12:30 MRI Brain [MR brain wo con] Routine 01/23/24 12:21 CL Cath Imgs for PACS use only Routine Reviewed imaging, laboratory and diagnostic studies. Pertinent findings as below. MRI negative for acute findings echocardiogram shows normal ejection fraction, severe aortic stenosis, right ventricular pressure 40 to 50 mmHg CBC and BMP stable Discharge Instructions Given to Patient (Per Discharging Provider) Transfer to [facility] Total Time Total Time Spent Total Time Spent (In Minutes): 40
[2024-01-24 19:31] VITALS: BP 105/64; PULSE 75; RESP 18; TEMP 98.2; O2SAT 97
[2024-01-24] MEDS ORDERED: APIXABAN 5 MG TABLET PO SCH (21:00)
== END 2024-01-24 19:40 | disposition short-term general hospital (02) | DRG 286 ==
LOC: ED 09:23 → SUATTDRO 12:14 → EDINP 12:14 → 2S 13:59
PROC: CLB.CCO (2024-01-23 12:50)